=== PATIENT | male | born 1985 | race Caucasian/White ===

== ENCOUNTER 2017-02-18 22:52 | Inpatient (IN) | payer MEDICAID, OTHER ==
[~2017-02-18] VITALS: Ht 175.3 cm; Wt 98.5 kg
[~2017-02-18 22:52] MED LIST: CA C1TAB36 PO; CHLO100T24 PO; OMEG300C3 PO; VITA100C5 PO
[2017-02-18] MEDS ORDERED: OLAN2.5T3 PO (23:17)
[2017-02-18 23:21] LABS: BASOPHILS % (AUTO) 0.4 % (0.0-2.0); EOSINOPHILS % (AUTO) 1.4 % (1.0-6.0); MEAN CORPUSCULAR HGB CONC 33.4 G/dL (31.0-37.0); MEAN CORPUSCULAR VOLUME 87 fL (80-100); MONOCYTES # (AUTO) 0.7 K/uL (0.1-1.0); MONOCYTES % (AUTO) 7.4 % (2.0-9.0); NEUTROPHILS # (AUTO) 5.7 K/uL (1.8-7.7); NEUTROPHILS % (AUTO) 59.8 % (40.0-70.0); PLATELET COUNT (AUTO) 231 K/uL (150-450); RED BLOOD CELL COUNT(AUTO) 5.87 MIL/uL (4.50-5.90); RED CELL DISTRIBUTION WIDTH 13.4 % (11.5-14.5); WHITE BLOOD COUNT (AUTO) 9.5 K/uL (4.5-11.0)
[2017-02-18 23:29] LABS: ANION GAP 10 mmol/L (8-16); CALCIUM, TOTAL 8.8 mg/dL (8.8-10.5); CARBON DIOXIDE 25 mmol/L (22-29); CHLORIDE 104 mmol/L (98-107); CREATININE 1.01 mg/dL (0.60-1.30); GLOMERULAR FILTR. RATE CALC > 60 mL/min (>60); POTASSIUM 3.6 mmol/L (3.5-5.1); SODIUM SERUM 139 mmol/L (136-145); UREA NITROGEN, BLOOD 9 mg/dL (7-18)
[2017-02-18 23:34] LABS: ALANINE AMINOTRANSFERASE 24 U/L (12-78); ALBUMIN 4.1 g/dL (3.4-5.0); ASPARTATE AMINOTRANSFERASE 15 U/L (15-37); BILIRUBIN,TOTAL 0.4 mg/dL (0.1-1.0); TOTAL PROTEIN, SERUM 7.5 g/dL (6.4-8.2)
[2017-02-19] MEDS ORDERED: LORazepam 2 MG TABLET PO ONE
[2017-02-19] MEDS ORDERED: HALOPERIDOL 5 MG TABLET PO ONE
[2017-02-19 02:24] LABS: ADD UA MICROSCOPIC NO; APPEARANCE,URINE CLOUDY (CLEAR); GLUCOSE, URINE (UA) NEGATIVE (NEGATIVE); KETONES,URINE NEGATIVE (NEGATIVE); LEUKOCYTE ESTERASE ,URINE NEGATIVE (NEGATIVE); OCCULT BLOOD,URINE NEGATIVE (NEGATIVE); PH,URINE 5.5 (5.0-8.0); PROTEIN,URINE POS 1+ (NEGATIVE)
[2017-02-19 02:43] VITALS: BP 132/87
[2017-02-19 08:04] VITALS: BP 136/77
[2017-02-19] MEDS ORDERED: ONDANSETRON HCL 4 MG TABLET PO PRN (08:15)
[2017-02-19] MEDS ORDERED: LOPERAMIDE HCL 2 MG CAPSULE PO PRN (08:15)
[2017-02-19] MEDS ORDERED: IBUPROFEN 600 MG TABLET PO PRN (08:15)
[2017-02-19] MEDS ORDERED: CloNIDine HCL 0.1 MG TABLET PO PRN (08:15)
[2017-02-19] MEDS ORDERED: MAG HYDROX/AL HYDROX/SIMETH ES 30 ML SUSPENSION UDCUP PO PRN (08:15)
[2017-02-19] MEDS ORDERED: ALBUTEROL SULFATE HFA 90 MCG/PUFF 8 GM INHALER IH PRN (08:15)
[2017-02-19] MEDS ORDERED: ACETAMINOPHEN 325 MG TABLET PO PRN (08:15)
[2017-02-19] MEDS ORDERED: MAGNESIUM HYDROXIDE SUSPENSION 30 ML UDCUP PO PRN (08:15)
[2017-02-19] MEDS ORDERED: BACITRACIN 28.4 GM OINTMENT TP PRN (08:15)
[2017-02-19] MEDS ORDERED: PETROLATUM,WHITE 71 GM JELLY TP PRN (08:15)
[2017-02-19] MEDS ORDERED: BENZOCAINE/MENTHOL LOZENGE [8 LOZENGES/PACKET] MM PRN (08:30)
[2017-02-19 16:35] VITALS: BP 113/71
[2017-02-19] MEDS: LORazepam 2 MG TABLET PO PRN (17:00)
[2017-02-19] MEDS: PALIPERIDONE 3 MG ER TABLET PO SCH (20:18)
[2017-02-20 10:18] VITALS: BP 131/71
[2017-02-20] MEDS: PALIPERIDONE 3 MG ER TABLET PO SCH ×2 (11:53→20:56)
[2017-02-20] MEDS: LORazepam 2 MG TABLET PO PRN ×2 (12:03→17:15)
[2017-02-20] MEDS: HALOPERIDOL 5 MG TABLET PO PRN (12:03)
[2017-02-20] MEDS ORDERED: PALIPERIDONE PALMITATE 234 MG/1.5 ML SYRINGE IM ONE (13:45)
[2017-02-20 16:27] VITALS: BP 133/79
[2017-02-21 09:35] VITALS: BP 121/63
[2017-02-21] MEDS: PALIPERIDONE 3 MG ER TABLET PO SCH ×2 (10:26→20:23)
[2017-02-21] MEDS: LORazepam 2 MG TABLET PO PRN (16:11)
[2017-02-21 16:55] VITALS: BP 129/79
[2017-02-22 09:02] VITALS: BP 129/99
[2017-02-22] MEDS: HALOPERIDOL 5 MG TABLET PO PRN (10:00)
[2017-02-22] MEDS: LORazepam 2 MG TABLET PO PRN ×2 (10:00→17:50)
[2017-02-22] MEDS: PALIPERIDONE 3 MG ER TABLET PO SCH ×2 (10:00→19:56)
[2017-02-22 18:32] VITALS: BP 124/75
[2017-02-22] MEDS: DOCUSATE SODIUM 250 MG CAPSULE PO SCH (20:21)
[2017-02-23 08:54] VITALS: BP 102/60
[2017-02-23] MEDS: DOCUSATE SODIUM 250 MG CAPSULE PO SCH ×2 (09:44→16:29)
[2017-02-23] MEDS: PALIPERIDONE 3 MG ER TABLET PO SCH ×2 (09:44→20:29)
[2017-02-23 16:29] VITALS: BP 123/87
[2017-02-24] MEDS ORDERED: PALIPERIDONE PALMITATE 156 MG/ML SYRINGE IM ONE (09:00)
[2017-02-24 09:57] VITALS: BP 114/60
[2017-02-24] MEDS: PALIPERIDONE 3 MG ER TABLET PO SCH ×2 (10:45→20:57)
[2017-02-24] MEDS: DOCUSATE SODIUM 250 MG CAPSULE PO SCH ×2 (10:45→16:25)
[2017-02-24 16:45] VITALS: BP 127/91
[2017-02-24] MEDS: LORazepam 2 MG TABLET PO PRN (17:10)
[2017-02-24] MEDS: HALOPERIDOL 5 MG TABLET PO PRN (17:10)
[2017-02-24 20:30] VITALS: BP 122/80
[2017-02-25 08:46] VITALS: BP 116/72
[2017-02-25] MEDS: DOCUSATE SODIUM 250 MG CAPSULE PO SCH ×2 (09:40→16:03)
[2017-02-25] MEDS: PALIPERIDONE 3 MG ER TABLET PO SCH ×2 (09:41→20:05)
[2017-02-25] MEDS: LORazepam 2 MG TABLET PO PRN ×2 (12:20→20:07)
[2017-02-25 16:51] VITALS: BP 118/78
[2017-02-26 08:30] VITALS: BP 135/78
[2017-02-26] MEDS: PALIPERIDONE 3 MG ER TABLET PO SCH ×2 (08:47→20:43)
[2017-02-26] MEDS: DOCUSATE SODIUM 250 MG CAPSULE PO SCH ×2 (08:47→15:51)
[2017-02-26 17:03] VITALS: BP 117/77
[2017-02-26] MEDS ORDERED: DICLOFENAC SODIUM 1% 100 GM GEL [2GM] TP PRN (18:15)
[2017-02-26] MEDS: LORazepam 2 MG TABLET PO PRN (19:39)
[2017-02-26] MEDS: HALOPERIDOL 5 MG TABLET PO PRN (19:39)
[2017-02-26] MEDS: ZOLPIDEM TARTRATE 10 MG TABLET PO PRN (21:57)
[2017-02-27 08:00] VITALS: BP 137/82
[2017-02-27] MEDS: DOCUSATE SODIUM 250 MG CAPSULE PO SCH ×2 (09:40→16:27)
[2017-02-27] MEDS: PALIPERIDONE 3 MG ER TABLET PO SCH ×2 (09:40→21:06)
[2017-02-27] MEDS: BuPROPion HCL XL 150 MG ER TABLET PO SCH (11:36)
[2017-02-27 16:08] VITALS: BP 116/68
[2017-02-27] MEDS: LORazepam 2 MG TABLET PO PRN ×2 (16:38→20:46)
[2017-02-27] MEDS: HALOPERIDOL 5 MG TABLET PO PRN ×2 (16:39→20:46)
[2017-02-28 08:06] VITALS: BP 118/75
[2017-02-28] MEDS: PALIPERIDONE 3 MG ER TABLET PO SCH ×2 (08:43→20:29)
[2017-02-28] MEDS: BuPROPion HCL XL 150 MG ER TABLET PO SCH (08:43)
[2017-02-28] MEDS: DOCUSATE SODIUM 250 MG CAPSULE PO SCH ×2 (08:43→16:51)
[2017-02-28 16:00] VITALS: BP 112/70
[2017-02-28] MEDS: LORazepam 2 MG TABLET PO PRN (16:52)
[2017-02-28] MEDS: ZOLPIDEM TARTRATE 10 MG TABLET PO PRN (20:29)
[2017-03-01] MEDS: LORazepam 2 MG TABLET PO PRN (02:03)
[2017-03-01 02:48] VITALS: BP 128/82
[2017-03-01 08:06] VITALS: BP 152/89
[2017-03-01] MEDS: DOCUSATE SODIUM 250 MG CAPSULE PO SCH (08:44)
[2017-03-01] MEDS: BuPROPion HCL XL 150 MG ER TABLET PO SCH (08:44)
[2017-03-01] MEDS: PALIPERIDONE 3 MG ER TABLET PO SCH (08:45)
[2017-03-01] MEDS ORDERED: PALI3 PO (08:56)
[2017-03-01] MEDS ORDERED: BUPR-93 PO (08:59)
== END 2017-03-01 14:05 | disposition home or self-care (01) | DRG 750 ==
LOC: EMS 22:53 → 3EI 02-19 01:15
DX: F20.0 Paranoid schizophrenia (principal); R45.851 Suicidal ideations; I10 Essential (primary) hypertension; M54.5 Low back pain; K59.00 Constipation, unspecified; E66.9 Obesity, unspecified; F17.210 Nicotine dependence, cigarettes, uncomplicated; Z88.8 Allergy status to other drugs, medicaments and biological substances; Z79.899 Other long term (current) drug therapy; Z71.6 Tobacco abuse counseling; Z68.32 Body mass index [BMI] 32.0-32.9, adult
CPT/HCPCS: 99285; 99406; G0480; J3535

== ENCOUNTER 2017-03-09 01:12 | Emergency (ER) | payer MEDICAID, OTHER ==
[~2017-03-09] VITALS: Ht 175.3 cm; Wt 100.9 kg
[~2017-03-09 01:12] MED LIST changes: +BUPR-93 PO; -CA C1TAB36 PO; -CHLO100T24 PO; -OMEG300C3 PO; +PALI3 PO; -VITA100C5 PO
[2017-03-09 02:05] VITALS: BP 136/87
== END 2017-03-09 02:25 | disposition home or self-care (01) ==
LOC: EMS 01:13
DX: F41.9 Anxiety disorder, unspecified (principal); F20.9 Schizophrenia, unspecified; I10 Essential (primary) hypertension; F17.210 Nicotine dependence, cigarettes, uncomplicated; Z91.018 Allergy to other foods; Z88.8 Allergy status to other drugs, medicaments and biological substances
CPT/HCPCS: 99283

== ENCOUNTER 2020-07-23 19:18 | Inpatient (IN) | payer MEDICAID, OTHER ==
[~2020-07-23] VITALS: Ht 175.3 cm; Wt 86.2 kg
[~2020-07-23 19:18] MED LIST changes: -BUPR-93 PO; +DIVA-80 PO; +NALT50TA6 PO; +OLAN10TA22 PO; +OLAN10TA6 PO; +OMEP20 PO; -PALI3 PO
[2020-07-23] MEDS ORDERED: PALI1.5T7 PO (19:20)
[2020-07-23 21:44] LABS: BASOPHILS % (AUTO) 0.6 % (0.0-2.0); HEMATOCRIT 44.1 % (41-53); HEMOGLOBIN 14.8 g/dL (13.5-17.5); LYMPHOCYTES # (AUTO) 3.1 K/uL (1.0-4.8); LYMPHOCYTES % (AUTO) 39.2 % (22.0-44.0); MEAN CORPUSCULAR HEMOGLOBIN 29.8 pg (26.0-34.0); MEAN CORPUSCULAR HGB CONC 33.6 G/dL (31.0-37.0); MEAN CORPUSCULAR VOLUME 89 fL (80-100); MONOCYTES # (AUTO) 0.7 K/uL (0.1-1.0); MONOCYTES % (AUTO) 8.6 % (2.0-9.0); NEUTROPHILS % (AUTO) 49.6 % (40.0-70.0); PLATELET COUNT (AUTO) 200 K/uL (150-450); RED BLOOD CELL COUNT(AUTO) 4.96 MIL/uL (4.50-5.90); RED CELL DISTRIBUTION WIDTH 13.8 % (11.5-14.5)
[2020-07-23 21:56] LABS: ANION GAP 5 mmol/L (8-16); CALCIUM, TOTAL 8.8 mg/dL (8.8-10.5); CARBON DIOXIDE 29 mmol/L (22-29); CHLORIDE 101 mmol/L (98-107); CREATININE 1.04 mg/dL (0.60-1.30); GLOMERULAR FILTR. RATE CALC > 60 mL/min (>60); GLUCOSE,RANDOM 125 mg/dL (70-110); POTASSIUM 3.6 mmol/L (3.5-5.1); SODIUM SERUM 135 mmol/L (136-145); UREA NITROGEN, BLOOD 9 mg/dL (7-18)
[2020-07-23 22:02] LABS: ALANINE AMINOTRANSFERASE 21 U/L (12-78); ALBUMIN 3.7 g/dL (3.4-5.0); ALKALINE PHOSPHATASE 47 U/L (46-116); ASPARTATE AMINOTRANSFERASE 23 U/L (15-37); BILIRUBIN,TOTAL 0.7 mg/dL (0.1-1.0); TOTAL PROTEIN, SERUM 6.6 g/dL (6.4-8.2); VALPROIC ACID 64 mcg/mL (50-100)
[2020-07-23 22:41] LABS: AMPHET/METH SCREEN,URINE POSITIVE (NEGATIVE); BARBITURATE SCREEN, URINE NEGATIVE (NEGATIVE); BENZODIAZEPINES SCREEN,URINE NEGATIVE (NEGATIVE); CANNABINOID SCREEN,URINE NEGATIVE (NEGATIVE); COCAINE SCREEN,URINE POSITIVE (NEGATIVE); METHADONE SCREEN, URINE NEGATIVE (NEGATIVE); OPIATE SCREEN,URINE NEGATIVE (NEGATIVE)
[2020-07-23 22:43] LABS: PHENCYCLIDINE SCREEN,URINE NEGATIVE (NEGATIVE)
[2020-07-23] MEDS ORDERED: HALOPERIDOL 5 MG TABLET PO ONE (22:45)
[2020-07-23] MEDS ORDERED: LORazepam 2 MG TABLET PO ONE (22:45)
[2020-07-23] MEDS ORDERED: HALOPERIDOL 5 MG TABLET PO PRN (23:15)
[2020-07-23] MEDS ORDERED: ZOLPIDEM TARTRATE 10 MG TABLET PO PRN (23:15)
[2020-07-24 01:00] VITALS: BP 131/64
[2020-07-24] MEDS ORDERED: LOPERAMIDE HCL 2 MG CAPSULE PO PRN (07:45)
[2020-07-24] MEDS ORDERED: GuaiFENesin/D-METHORPHAN [SUGAR-FREE] 200-20MG/10 ML SYRUP UDCUP PO PRN (07:45)
[2020-07-24] MEDS ORDERED: NICOTINE 14 MG/24 HOUR PATCH TD PRN (07:45)
[2020-07-24] MEDS ORDERED: ACETAMINOPHEN 325 MG TABLET PO PRN (07:45)
[2020-07-24] MEDS ORDERED: MAGNESIUM HYDROXIDE SUSPENSION 30 ML UDCUP PO PRN (07:45)
[2020-07-24] MEDS ORDERED: MAG HYDROX/AL HYDROX/SIMETH ES 30 ML SUSPENSION UDCUP PO PRN (07:45)
[2020-07-24] MEDS ORDERED: ONDANSETRON HCL 4 MG TABLET PO PRN (07:45)
[2020-07-24] MEDS ORDERED: ALBUTEROL SULFATE HFA 90 MCG/PUFF 8 GM INHALER IH PRN (07:45)
[2020-07-24] MEDS ORDERED: CloNIDine HCL 0.1 MG TABLET PO PRN (07:45)
[2020-07-24] MEDS ORDERED: IBUPROFEN 400 MG TABLET PO PRN (07:45)
[2020-07-24] MEDS ORDERED: PETROLATUM,WHITE 28 GM JELLY TP PRN (07:45)
[2020-07-24] MEDS ORDERED: DOCUSATE SODIUM 100 MG CAPSULE PO PRN (07:45)
[2020-07-24] MEDS: OMEPRAZOLE 20 MG CAPSULE PO SCH (09:52)
[2020-07-24 10:32] VITALS: BP 106/65
[2020-07-24] MEDS: DIVALPROEX SODIUM 500 MG ER TABLET PO SCH (20:31)
[2020-07-24] MEDS: OLANZapine 10 MG TABLET PO SCH (20:31)
[2020-07-25] MEDS: DIVALPROEX SODIUM 500 MG ER TABLET PO SCH ×2 (08:20→20:14)
[2020-07-25] MEDS: OLANZapine 10 MG TABLET PO SCH ×2 (08:20→20:14)
[2020-07-25] MEDS: OMEPRAZOLE 20 MG CAPSULE PO SCH (08:20)
[2020-07-25 16:31] VITALS: BP 111/59
[2020-07-25] MEDS: LORazepam 2 MG TABLET PO PRN (16:52)
[2020-07-26 06:39] VITALS: BP 108/54
[2020-07-26] MEDS: OLANZapine 10 MG TABLET PO SCH ×2 (08:36→20:28)
[2020-07-26] MEDS: OMEPRAZOLE 20 MG CAPSULE PO SCH (08:36)
[2020-07-26] MEDS: DIVALPROEX SODIUM 500 MG ER TABLET PO SCH ×2 (08:37→20:28)
[2020-07-26 16:19] VITALS: BP 135/85
[2020-07-26] MEDS: LORazepam 2 MG TABLET PO PRN (16:49)
[2020-07-27 05:43] VITALS: BP 106/60
[2020-07-27] MEDS: DIVALPROEX SODIUM 500 MG ER TABLET PO SCH ×2 (08:59→20:35)
[2020-07-27] MEDS: OLANZapine 10 MG TABLET PO SCH ×2 (08:59→20:35)
[2020-07-27] MEDS: OMEPRAZOLE 20 MG CAPSULE PO SCH (09:00)
[2020-07-27] MEDS: LORazepam 2 MG TABLET PO PRN (15:30)
[2020-07-27 16:40] VITALS: BP 118/73
[2020-07-28] MEDS: DIVALPROEX SODIUM 500 MG ER TABLET PO SCH ×2 (09:24→20:38)
[2020-07-28] MEDS: OLANZapine 10 MG TABLET PO SCH ×2 (09:25→20:37)
[2020-07-28] MEDS: OMEPRAZOLE 20 MG CAPSULE PO SCH (09:25)
[2020-07-28 16:10] VITALS: BP 118/60
[2020-07-28] MEDS: LORazepam 2 MG TABLET PO PRN (19:35)
[2020-07-29 00:38] VITALS: BP_SYST 113; BP_SYST 120; BP_DIAS 77; BP_DIAS 80
[2020-07-29] MEDS: DIVALPROEX SODIUM 500 MG ER TABLET PO SCH (08:58)
[2020-07-29] MEDS: OLANZapine 10 MG TABLET PO SCH (08:58)
[2020-07-29] MEDS: OMEPRAZOLE 20 MG CAPSULE PO SCH (08:59)
[2020-07-29] MEDS ORDERED: DIVA-80 PO ×2 (14:05)
[2020-07-29] MEDS ORDERED: OLAN10TA3 PO (14:06)
== END 2020-07-29 14:57 | disposition home or self-care (01) | DRG 750 ==
LOC: EMS 19:19 → B2S 23:07
PROVIDERS: ADMIT Psychiatry & Neurology Child & Adolescent Psychiatry; ATTEND Psychiatry & Neurology Child & Adolescent Psychiatry
DX: F25.1 Schizoaffective disorder, depressive type (principal); E87.1 Hypo-osmolality and hyponatremia; F10.10 Alcohol abuse, uncomplicated; F14.10 Cocaine abuse, uncomplicated; F15.10 Other stimulant abuse, uncomplicated; F12.90 Cannabis use, unspecified, uncomplicated; F41.9 Anxiety disorder, unspecified; I10 Essential (primary) hypertension; F17.210 Nicotine dependence, cigarettes, uncomplicated; K21.9 Gastro-esophageal reflux disease without esophagitis; R45.851 Suicidal ideations; Z59.0 Homelessness; Z79.899 Other long term (current) drug therapy; Z88.8 Allergy status to other drugs, medicaments and biological substances; Z71.51 Drug abuse counseling and surveillance of drug abuser; Z71.6 Tobacco abuse counseling
CPT/HCPCS: G0480

== ENCOUNTER 2020-08-14 23:26 | Inpatient (IN) | payer MEDICAID, OTHER ==
[~2020-08-14] VITALS: Ht 175.3 cm; Wt 92.4 kg
[~2020-08-14 23:26] MED LIST changes: -NALT50TA6 PO; -OLAN10TA22 PO; +OLAN10TA3 PO; -OLAN10TA6 PO
[2020-08-15 02:05] LABS: BASOPHILS % (AUTO) 0.7 % (0.0-2.0); EOSINOPHILS % (AUTO) 1.4 % (1.0-6.0); HEMATOCRIT 45.5 % (41-53); HEMOGLOBIN 15.9 g/dL (13.5-17.5); LYMPHOCYTES # (AUTO) 3.6 K/uL (1.0-4.8); LYMPHOCYTES % (AUTO) 39.7 % (22.0-44.0); MEAN CORPUSCULAR HEMOGLOBIN 30.9 pg (26.0-34.0); MEAN CORPUSCULAR VOLUME 88 fL (80-100); MONOCYTES # (AUTO) 0.8 K/uL (0.1-1.0); MONOCYTES % (AUTO) 9.1 % (2.0-9.0); NEUTROPHILS # (AUTO) 4.4 K/uL (1.8-7.7); NEUTROPHILS % (AUTO) 49.1 % (40.0-70.0); PLATELET COUNT (AUTO) 214 K/uL (150-450); RED BLOOD CELL COUNT(AUTO) 5.15 MIL/uL (4.50-5.90); RED CELL DISTRIBUTION WIDTH 13.5 % (11.5-14.5)
[2020-08-15 02:15] LABS: ANION GAP 9 mmol/L (8-16); CALCIUM, TOTAL 9.1 mg/dL (8.8-10.5); CARBON DIOXIDE 29 mmol/L (22-29); CHLORIDE 101 mmol/L (98-107); GLOMERULAR FILTR. RATE CALC > 60 mL/min (>60); GLUCOSE,RANDOM 108 mg/dL (70-110); POTASSIUM 3.8 mmol/L (3.5-5.1); SODIUM SERUM 139 mmol/L (136-145); UREA NITROGEN, BLOOD 10 mg/dL (7-18)
[2020-08-15 02:24] LABS: ALANINE AMINOTRANSFERASE 16 U/L (12-78); ALBUMIN 3.9 g/dL (3.4-5.0); ALKALINE PHOSPHATASE 40 U/L (46-116); ASPARTATE AMINOTRANSFERASE 12 U/L (15-37); BILIRUBIN,TOTAL 0.2 mg/dL (0.1-1.0); TOTAL PROTEIN, SERUM 6.7 g/dL (6.4-8.2); VALPROIC ACID 64 mcg/mL (50-100)
[2020-08-15 03:17] LABS: AMPHET/METH SCREEN,URINE NEGATIVE (NEGATIVE); BARBITURATE SCREEN, URINE NEGATIVE (NEGATIVE); BENZODIAZEPINES SCREEN,URINE NEGATIVE (NEGATIVE); CANNABINOID SCREEN,URINE NEGATIVE (NEGATIVE); COCAINE SCREEN,URINE NEGATIVE (NEGATIVE); METHADONE SCREEN, URINE NEGATIVE (NEGATIVE); OPIATE SCREEN,URINE NEGATIVE (NEGATIVE)
[2020-08-15 03:19] LABS: PHENCYCLIDINE SCREEN,URINE NEGATIVE (NEGATIVE)
[2020-08-15 07:45] LABS: COVID AG,FIA SOURCE NASOPHARYNGEAL
[2020-08-15] MEDS ORDERED: MAG HYDROX/AL HYDROX/SIMETH ES 30 ML SUSPENSION UDCUP PO PRN (08:30)
[2020-08-15] MEDS ORDERED: ALBUTEROL SULFATE HFA 90 MCG/PUFF 8 GM INHALER IH PRN (08:30)
[2020-08-15] MEDS ORDERED: ONDANSETRON HCL 4 MG TABLET PO PRN (08:30)
[2020-08-15] MEDS ORDERED: MAGNESIUM HYDROXIDE SUSPENSION 30 ML UDCUP PO PRN (08:30)
[2020-08-15] MEDS ORDERED: ACETAMINOPHEN 325 MG TABLET PO PRN (08:30)
[2020-08-15] MEDS ORDERED: GuaiFENesin/D-METHORPHAN [SUGAR-FREE] 200-20MG/10 ML SYRUP UDCUP PO PRN (08:30)
[2020-08-15] MEDS ORDERED: PETROLATUM,WHITE 28 GM JELLY TP PRN (08:30)
[2020-08-15] MEDS ORDERED: NICOTINE 14 MG/24 HOUR PATCH TD PRN (08:30)
[2020-08-15] MEDS ORDERED: LOPERAMIDE HCL 2 MG CAPSULE PO PRN (08:30)
[2020-08-15] MEDS ORDERED: DOCUSATE SODIUM 100 MG CAPSULE PO PRN (08:30)
[2020-08-15] MEDS ORDERED: CloNIDine HCL 0.1 MG TABLET PO PRN (08:30)
[2020-08-15 08:39] LABS: APPEARANCE,URINE CLEAR (CLEAR); BILIRUBIN,URINE NEGATIVE (NEGATIVE); GLUCOSE, URINE (UA) NEGATIVE (NEGATIVE); KETONES,URINE NEGATIVE (NEGATIVE); LEUKOCYTE ESTERASE ,URINE NEGATIVE (NEGATIVE); NITRATE,URINE NEGATIVE (NEGATIVE); OCCULT BLOOD,URINE NEGATIVE (NEGATIVE); PROTEIN,URINE NEGATIVE (NEGATIVE); UROBILINOGEN,URINE 0.2 mg/dL (<=1.0)
[2020-08-15] MEDS: OMEPRAZOLE 20 MG CAPSULE PO SCH (09:55)
[2020-08-15 10:18] VITALS: BP 149/75
[2020-08-15 16:25] VITALS: BP 134/81
[2020-08-15] MEDS: HALOPERIDOL 5 MG TABLET PO PRN (21:10)
[2020-08-15] MEDS: LORazepam 2 MG TABLET PO PRN (21:11)
[2020-08-16] MEDS: OMEPRAZOLE 20 MG CAPSULE PO SCH (08:04)
[2020-08-16 16:06] VITALS: BP 127/86
[2020-08-16] MEDS: IBUPROFEN 400 MG TABLET PO PRN (16:10)
[2020-08-16] MEDS: DIVALPROEX SODIUM 500 MG ER TABLET PO SCH (20:10)
[2020-08-16] MEDS: OLANZapine 10 MG TABLET PO SCH (20:10)
[2020-08-16] MEDS: ZOLPIDEM TARTRATE 10 MG TABLET PO PRN (20:10)
[2020-08-17] MEDS: HALOPERIDOL 5 MG TABLET PO PRN ×3 (00:02→17:11)
[2020-08-17] MEDS: LORazepam 2 MG TABLET PO PRN ×3 (00:02→17:11)
[2020-08-17] MEDS: OLANZapine 10 MG TABLET PO SCH ×2 (07:42→20:26)
[2020-08-17] MEDS: OMEPRAZOLE 20 MG CAPSULE PO SCH (07:42)
[2020-08-17] MEDS: DIVALPROEX SODIUM 500 MG ER TABLET PO SCH ×2 (07:42→20:26)
[2020-08-17 08:00] VITALS: BP 110/70
[2020-08-17 16:05] VITALS: BP 132/90
[2020-08-18 08:00] VITALS: BP 114/69
[2020-08-18] MEDS: OLANZapine 10 MG TABLET PO SCH ×2 (09:37→20:10)
[2020-08-18] MEDS: OMEPRAZOLE 20 MG CAPSULE PO SCH (09:38)
[2020-08-18] MEDS: DIVALPROEX SODIUM 500 MG ER TABLET PO SCH ×2 (09:38→20:09)
[2020-08-18] MEDS: LORazepam 2 MG TABLET PO PRN (10:51)
[2020-08-18] MEDS: HALOPERIDOL 5 MG TABLET PO PRN (10:51)
[2020-08-19] MEDS: OLANZapine 10 MG TABLET PO SCH (07:55)
[2020-08-19] MEDS: OMEPRAZOLE 20 MG CAPSULE PO SCH ×2 (07:55→08:03)
[2020-08-19] MEDS: DIVALPROEX SODIUM 500 MG ER TABLET PO SCH ×3 (07:55→20:07)
[2020-08-19 08:00] VITALS: BP 95/66
[2020-08-19] MEDS: HALOPERIDOL 5 MG TABLET PO PRN ×2 (08:02→15:52)
[2020-08-19] MEDS: LORazepam 2 MG TABLET PO PRN ×2 (08:02→15:52)
[2020-08-19 16:21] VITALS: BP 128/72
[2020-08-19] MEDS: OLANZapine 7.5 MG TABLET PO SCH (20:08)
[2020-08-19] MEDS: ZOLPIDEM TARTRATE 10 MG TABLET PO PRN (21:41)
[2020-08-20] MEDS: DIVALPROEX SODIUM 500 MG ER TABLET PO SCH (08:45)
[2020-08-20] MEDS: OLANZapine 7.5 MG TABLET PO SCH (08:45)
[2020-08-20] MEDS: OMEPRAZOLE 20 MG CAPSULE PO SCH (08:45)
[2020-08-20] MEDS: IBUPROFEN 400 MG TABLET PO PRN (10:16)
[2020-08-20 16:08] VITALS: BP 127/90
== END 2020-08-20 16:45 | disposition home or self-care (01) | DRG 750 ==
LOC: EMS 23:26 → 3EC 08-15 04:49
PROVIDERS: ADMIT Psychiatry & Neurology Psychiatry; ATTEND Psychiatry & Neurology Psychiatry
DX: F20.9 Schizophrenia, unspecified (principal); F15.10 Other stimulant abuse, uncomplicated; Z88.8 Allergy status to other drugs, medicaments and biological substances; I10 Essential (primary) hypertension; K59.00 Constipation, unspecified; Z20.828 Contact with and (suspected) exposure to other viral communicable diseases; Z87.891 Personal history of nicotine dependence
CPT/HCPCS: 87081; 87426; G0480

== ENCOUNTER 2020-08-26 16:21 | Inpatient (IN) | payer MEDICAID, OTHER ==
[~2020-08-26] VITALS: Ht 175.3 cm; Wt 94.2 kg
[2020-08-26 17:13] LABS: BASOPHILS % (AUTO) 0.5 % (0.0-2.0); EOSINOPHILS % (AUTO) 1.5 % (1.0-6.0); HEMATOCRIT 42.3 % (41-53); LYMPHOCYTES % (AUTO) 23.2 % (22.0-44.0); MEAN CORPUSCULAR HEMOGLOBIN 29.8 pg (26.0-34.0); MEAN CORPUSCULAR HGB CONC 33.2 G/dL (31.0-37.0); MEAN CORPUSCULAR VOLUME 90 fL (80-100); MONOCYTES # (AUTO) 0.8 K/uL (0.1-1.0); NEUTROPHILS # (AUTO) 5.8 K/uL (1.8-7.7); NEUTROPHILS % (AUTO) 65.8 % (40.0-70.0); PLATELET COUNT (AUTO) 212 K/uL (150-450); RED BLOOD CELL COUNT(AUTO) 4.72 MIL/uL (4.50-5.90); RED CELL DISTRIBUTION WIDTH 13.3 % (11.5-14.5)
[2020-08-26 17:31] LABS: ANION GAP 4 mmol/L (8-16); CALCIUM, TOTAL 8.6 mg/dL (8.8-10.5); CARBON DIOXIDE 30 mmol/L (22-29); CHLORIDE 108 mmol/L (98-107); CREATININE 0.75 mg/dL (0.60-1.30); GLOMERULAR FILTR. RATE CALC > 60 mL/min (>60); GLUCOSE,RANDOM 93 mg/dL (70-110); POTASSIUM 3.6 mmol/L (3.5-5.1); SODIUM SERUM 142 mmol/L (136-145); UREA NITROGEN, BLOOD 6 mg/dL (7-18)
[2020-08-26 17:37] LABS: ALANINE AMINOTRANSFERASE 27 U/L (12-78); ALBUMIN 3.4 g/dL (3.4-5.0); ALKALINE PHOSPHATASE 31 U/L (46-116); ASPARTATE AMINOTRANSFERASE 18 U/L (15-37); BILIRUBIN,TOTAL 0.2 mg/dL (0.1-1.0); TOTAL PROTEIN, SERUM 6.6 g/dL (6.4-8.2)
[2020-08-26 17:57] LABS: COVID AG,FIA SOURCE NASOPHARYNGEAL
[2020-08-26 18:10] LABS: AMPHET/METH SCREEN,URINE NEGATIVE (NEGATIVE); BARBITURATE SCREEN, URINE NEGATIVE (NEGATIVE); BENZODIAZEPINES SCREEN,URINE NEGATIVE (NEGATIVE); CANNABINOID SCREEN,URINE NEGATIVE (NEGATIVE); COCAINE SCREEN,URINE NEGATIVE (NEGATIVE); METHADONE SCREEN, URINE NEGATIVE (NEGATIVE); OPIATE SCREEN,URINE NEGATIVE (NEGATIVE)
[2020-08-26 18:14] LABS: PHENCYCLIDINE SCREEN,URINE NEGATIVE (NEGATIVE)
[2020-08-26] MEDS ORDERED: LORazepam 2 MG TABLET PO ONE (18:45)
[2020-08-26] MEDS ORDERED: OLANZapine 5 MG TABLET PO ONE (18:45)
[2020-08-26] MEDS ORDERED: INFLUENZA VIRUS VACCINE QVS 2020-21 (6MO+)/PF 60 MCG/0.5 ML SYRINGE IM ONE (22:00)
[2020-08-26] MEDS ORDERED: -PHARMACY VACCINE NOTE- MISC ONE (22:00)
[2020-08-26 22:09] VITALS: BP 152/76
[2020-08-26] MEDS: AmLODIPine BESYLATE 5 MG TABLET PO SCH (22:22)
[2020-08-27 10:15] VITALS: BP 130/83
[2020-08-27] MEDS: AmLODIPine BESYLATE 5 MG TABLET PO SCH (10:16)
[2020-08-27] MEDS: OMEPRAZOLE 20 MG CAPSULE PO SCH (10:16)
[2020-08-27] MEDS: LORazepam 2 MG TABLET PO PRN (17:58)
[2020-08-27] MEDS: OLANZapine 5 MG RAPDIS TABLET PO PRN (17:58)
[2020-08-27] MEDS: OLANZapine 7.5 MG TABLET PO SCH (20:32)
[2020-08-27] MEDS: DIVALPROEX SODIUM 500 MG ER TABLET PO SCH (20:32)
[2020-08-28 01:21] VITALS: BP 139/76
[2020-08-28 08:31] VITALS: BP 122/71
[2020-08-28] MEDS: DIVALPROEX SODIUM 500 MG ER TABLET PO SCH ×2 (09:45→21:00)
[2020-08-28] MEDS: OMEPRAZOLE 20 MG CAPSULE PO SCH (09:46)
[2020-08-28] MEDS: AmLODIPine BESYLATE 5 MG TABLET PO SCH (09:46)
[2020-08-28] MEDS: OLANZapine 7.5 MG TABLET PO SCH ×2 (09:46→21:00)
[2020-08-28 17:46] VITALS: BP 112/79
[2020-08-28] MEDS: OLANZapine 5 MG RAPDIS TABLET PO PRN (18:09)
[2020-08-28] MEDS: LORazepam 2 MG TABLET PO PRN (18:09)
[2020-08-28] MEDS: ZOLPIDEM TARTRATE 10 MG TABLET PO PRN (21:00)
[2020-08-29] MEDS: OLANZapine 7.5 MG TABLET PO SCH ×2 (08:30→20:36)
[2020-08-29] MEDS: OMEPRAZOLE 20 MG CAPSULE PO SCH (08:30)
[2020-08-29] MEDS: AmLODIPine BESYLATE 5 MG TABLET PO SCH (08:30)
[2020-08-29] MEDS: DIVALPROEX SODIUM 500 MG ER TABLET PO SCH ×2 (08:31→20:36)
[2020-08-29 08:36] VITALS: BP 109/62
[2020-08-29] MEDS ORDERED: LORazepam 2 MG/ML VIAL ONE (10:58)
[2020-08-29] MEDS ORDERED: HALOPERIDOL LACTATE 5 MG/ML VIAL ONE (10:58)
[2020-08-29] MEDS ORDERED: DiphenhydrAMINE HCL 50 MG/ML VIAL ONE (10:58)
[2020-08-29] MEDS ORDERED: DiphenhydrAMINE HCL 50 MG/ML VIAL IM ONE (11:00)
[2020-08-29] MEDS ORDERED: LORazepam 2 MG/ML VIAL IM ONE (11:00)
[2020-08-29] MEDS ORDERED: HALOPERIDOL LACTATE 5 MG/ML VIAL IM ONE (11:00)
[2020-08-29] MEDS: OLANZapine 5 MG RAPDIS TABLET PO PRN (15:47)
[2020-08-29] MEDS: LORazepam 2 MG TABLET PO PRN (15:48)
[2020-08-29 16:04] VITALS: BP 131/65
[2020-08-30 05:47] VITALS: BP 118/68
[2020-08-30] MEDS: OMEPRAZOLE 20 MG CAPSULE PO SCH (08:38)
[2020-08-30] MEDS: DIVALPROEX SODIUM 500 MG ER TABLET PO SCH ×2 (08:38→20:46)
[2020-08-30] MEDS: AmLODIPine BESYLATE 5 MG TABLET PO SCH (08:38)
[2020-08-30] MEDS: OLANZapine 7.5 MG TABLET PO SCH ×2 (08:39→20:46)
[2020-08-30 11:09] VITALS: BP 126/75
[2020-08-30] MEDS: LORazepam 2 MG TABLET PO PRN ×2 (11:09→15:53)
[2020-08-30] MEDS: IBUPROFEN 400 MG TABLET PO PRN (11:09)
[2020-08-30 11:37] VITALS: BP 122/72
[2020-08-30] MEDS: OLANZapine 5 MG RAPDIS TABLET PO PRN (15:53)
[2020-08-30 16:06] VITALS: BP 112/61
[2020-08-31 03:17] VITALS: BP 124/82
[2020-08-31] MEDS: OLANZapine 7.5 MG TABLET PO SCH ×2 (08:40→21:27)
[2020-08-31] MEDS: AmLODIPine BESYLATE 5 MG TABLET PO SCH (08:40)
[2020-08-31] MEDS: LORazepam 2 MG TABLET PO PRN (08:40)
[2020-08-31] MEDS: OMEPRAZOLE 20 MG CAPSULE PO SCH (08:40)
[2020-08-31] MEDS: DIVALPROEX SODIUM 500 MG ER TABLET PO SCH ×2 (08:40→21:27)
[2020-08-31 10:29] VITALS: BP 124/86
[2020-09-01] MEDS: LORazepam 2 MG TABLET PO PRN (08:52)
[2020-09-01] MEDS: AmLODIPine BESYLATE 5 MG TABLET PO SCH (08:52)
[2020-09-01] MEDS: DIVALPROEX SODIUM 500 MG ER TABLET PO SCH ×2 (08:52→20:48)
[2020-09-01] MEDS: OLANZapine 7.5 MG TABLET PO SCH ×2 (08:52→20:48)
[2020-09-01] MEDS: OMEPRAZOLE 20 MG CAPSULE PO SCH (08:52)
[2020-09-01 16:17] VITALS: BP 119/72
[2020-09-01] MEDS: IBUPROFEN 400 MG TABLET PO PRN (16:40)
[2020-09-02 00:37] VITALS: BP 114/75
[2020-09-02] MEDS: AmLODIPine BESYLATE 5 MG TABLET PO SCH (09:26)
[2020-09-02] MEDS: OLANZapine 7.5 MG TABLET PO SCH ×2 (09:26→20:17)
[2020-09-02] MEDS: OMEPRAZOLE 20 MG CAPSULE PO SCH (09:26)
[2020-09-02] MEDS: DIVALPROEX SODIUM 500 MG ER TABLET PO SCH ×2 (09:26→20:17)
[2020-09-02 16:04] VITALS: BP 131/73
[2020-09-02] MEDS: OLANZapine 5 MG RAPDIS TABLET PO PRN (16:36)
[2020-09-02] MEDS: LORazepam 2 MG TABLET PO PRN (16:36)
[2020-09-02] MEDS: ZOLPIDEM TARTRATE 10 MG TABLET PO PRN (20:17)
[2020-09-03] MEDS: AmLODIPine BESYLATE 5 MG TABLET PO SCH (08:27)
[2020-09-03] MEDS: OLANZapine 7.5 MG TABLET PO SCH ×2 (08:27→20:29)
[2020-09-03] MEDS: DIVALPROEX SODIUM 500 MG ER TABLET PO SCH ×2 (08:27→20:29)
[2020-09-03] MEDS: OMEPRAZOLE 20 MG CAPSULE PO SCH (08:27)
[2020-09-03] MEDS: LORazepam 2 MG TABLET PO PRN ×2 (12:51→16:55)
[2020-09-03] MEDS: OLANZapine 5 MG RAPDIS TABLET PO PRN (16:06)
[2020-09-03] MEDS: ZOLPIDEM TARTRATE 10 MG TABLET PO PRN (20:29)
[2020-09-04 04:14] VITALS: BP 116/72
[2020-09-04] MEDS: DIVALPROEX SODIUM 500 MG ER TABLET PO SCH ×2 (08:25→21:00)
[2020-09-04] MEDS: OMEPRAZOLE 20 MG CAPSULE PO SCH (08:25)
[2020-09-04] MEDS: LORazepam 2 MG TABLET PO PRN ×2 (08:26→16:10)
[2020-09-04] MEDS: OLANZapine 7.5 MG TABLET PO SCH ×2 (08:26→21:00)
[2020-09-04] MEDS: AmLODIPine BESYLATE 5 MG TABLET PO SCH (09:01)
[2020-09-04] MEDS: OLANZapine 5 MG RAPDIS TABLET PO PRN (15:50)
[2020-09-04] MEDS: IBUPROFEN 400 MG TABLET PO PRN (16:10)
[2020-09-04 19:15] VITALS: BP 125/78
[2020-09-05] MEDS: LORazepam 2 MG TABLET PO PRN ×2 (08:16→14:28)
[2020-09-05] MEDS: OLANZapine 7.5 MG TABLET PO SCH ×2 (08:16→20:16)
[2020-09-05] MEDS: OMEPRAZOLE 20 MG CAPSULE PO SCH (08:16)
[2020-09-05] MEDS: DIVALPROEX SODIUM 500 MG ER TABLET PO SCH ×2 (08:16→20:16)
[2020-09-05] MEDS: AmLODIPine BESYLATE 5 MG TABLET PO SCH (08:16)
[2020-09-05] MEDS: OLANZapine 5 MG RAPDIS TABLET PO PRN (14:28)
[2020-09-05 16:13] VITALS: BP 110/73
[2020-09-05] MEDS: ZOLPIDEM TARTRATE 10 MG TABLET PO PRN (20:17)
[2020-09-06 05:17] VITALS: BP 128/84
[2020-09-06] MEDS: OLANZapine 7.5 MG TABLET PO SCH ×2 (08:41→20:23)
[2020-09-06] MEDS: AmLODIPine BESYLATE 5 MG TABLET PO SCH (08:41)
[2020-09-06] MEDS: OMEPRAZOLE 20 MG CAPSULE PO SCH (08:41)
[2020-09-06] MEDS: DIVALPROEX SODIUM 500 MG ER TABLET PO SCH ×2 (08:41→20:24)
[2020-09-06] MEDS: LORazepam 2 MG TABLET PO PRN ×2 (13:06→20:24)
[2020-09-06] MEDS: OLANZapine 5 MG RAPDIS TABLET PO PRN (13:06)
[2020-09-06] MEDS: ZOLPIDEM TARTRATE 10 MG TABLET PO PRN (20:24)
[2020-09-07 02:35] VITALS: BP 118/74
[2020-09-07] MEDS: AmLODIPine BESYLATE 5 MG TABLET PO SCH (07:51)
[2020-09-07] MEDS: DIVALPROEX SODIUM 500 MG ER TABLET PO SCH ×2 (07:52→19:49)
[2020-09-07] MEDS: OMEPRAZOLE 20 MG CAPSULE PO SCH (07:52)
[2020-09-07] MEDS: OLANZapine 7.5 MG TABLET PO SCH ×2 (07:52→19:49)
[2020-09-07 12:56] VITALS: BP 116/70
[2020-09-07] MEDS: IBUPROFEN 400 MG TABLET PO PRN (12:56)
[2020-09-07 16:02] VITALS: BP 120/65
[2020-09-08 08:31] VITALS: BP 130/80
[2020-09-08] MEDS: OLANZapine 7.5 MG TABLET PO SCH ×2 (08:39→20:09)
[2020-09-08] MEDS: DIVALPROEX SODIUM 500 MG ER TABLET PO SCH ×2 (08:40→20:08)
[2020-09-08] MEDS: AmLODIPine BESYLATE 5 MG TABLET PO SCH (08:40)
[2020-09-08] MEDS: OMEPRAZOLE 20 MG CAPSULE PO SCH (08:40)
[2020-09-08] MEDS: LORazepam 2 MG TABLET PO PRN (08:40)
[2020-09-08 16:50] VITALS: BP 119/81
[2020-09-09 04:05] VITALS: BP 115/68
[2020-09-09] MEDS: OLANZapine 7.5 MG TABLET PO SCH ×2 (08:31→20:34)
[2020-09-09] MEDS: AmLODIPine BESYLATE 5 MG TABLET PO SCH (08:31)
[2020-09-09] MEDS: OMEPRAZOLE 20 MG CAPSULE PO SCH (08:31)
[2020-09-09] MEDS: DIVALPROEX SODIUM 500 MG ER TABLET PO SCH ×2 (08:31→20:34)
[2020-09-09] MEDS: IBUPROFEN 400 MG TABLET PO PRN (09:11)
[2020-09-09 09:43] VITALS: BP 117/72
[2020-09-09 16:03] VITALS: BP 127/83
[2020-09-09] MEDS: OLANZapine 5 MG RAPDIS TABLET PO PRN (16:34)
[2020-09-09] MEDS: LORazepam 2 MG TABLET PO PRN ×2 (16:34→20:34)
[2020-09-09] MEDS: ZOLPIDEM TARTRATE 10 MG TABLET PO PRN (20:34)
[2020-09-10 04:00] VITALS: BP 118/74
[2020-09-10 08:40] VITALS: BP 121/76
[2020-09-10] MEDS: DIVALPROEX SODIUM 500 MG ER TABLET PO SCH ×2 (08:45→20:23)
[2020-09-10] MEDS: OLANZapine 7.5 MG TABLET PO SCH ×2 (08:45→20:23)
[2020-09-10] MEDS: AmLODIPine BESYLATE 5 MG TABLET PO SCH (08:45)
[2020-09-10] MEDS: OMEPRAZOLE 20 MG CAPSULE PO SCH (08:45)
[2020-09-10] MEDS: LORazepam 2 MG TABLET PO PRN (19:01)
[2020-09-10] MEDS: IBUPROFEN 400 MG TABLET PO PRN (19:01)
[2020-09-11 04:08] VITALS: BP 118/71
[2020-09-11 08:19] VITALS: BP 124/76
[2020-09-11] MEDS: AmLODIPine BESYLATE 5 MG TABLET PO SCH (08:26)
[2020-09-11] MEDS: OMEPRAZOLE 20 MG CAPSULE PO SCH (08:27)
[2020-09-11] MEDS: DIVALPROEX SODIUM 500 MG ER TABLET PO SCH ×2 (08:27→20:08)
[2020-09-11] MEDS: OLANZapine 7.5 MG TABLET PO SCH ×2 (08:27→20:08)
[2020-09-11] MEDS: LORazepam 2 MG TABLET PO PRN ×2 (11:07→16:57)
[2020-09-11 16:08] VITALS: BP 128/79
[2020-09-11] MEDS: ZOLPIDEM TARTRATE 10 MG TABLET PO PRN (20:08)
[2020-09-12] MEDS: DIVALPROEX SODIUM 500 MG ER TABLET PO SCH ×2 (08:43→20:18)
[2020-09-12] MEDS: AmLODIPine BESYLATE 5 MG TABLET PO SCH (08:43)
[2020-09-12] MEDS: OMEPRAZOLE 20 MG CAPSULE PO SCH (08:44)
[2020-09-12] MEDS: OLANZapine 7.5 MG TABLET PO SCH ×2 (08:44→20:18)
[2020-09-12 16:04] VITALS: BP 125/78
[2020-09-12] MEDS: OLANZapine 5 MG RAPDIS TABLET PO PRN (17:08)
[2020-09-13 05:20] VITALS: BP 126/84
[2020-09-13] MEDS: OLANZapine 7.5 MG TABLET PO SCH ×2 (08:26→20:03)
[2020-09-13] MEDS: DIVALPROEX SODIUM 500 MG ER TABLET PO SCH ×2 (08:26→20:01)
[2020-09-13] MEDS: OMEPRAZOLE 20 MG CAPSULE PO SCH (08:26)
[2020-09-13] MEDS: AmLODIPine BESYLATE 5 MG TABLET PO SCH (08:26)
[2020-09-13 16:09] VITALS: BP 133/84
[2020-09-13 19:50] VITALS: BP 124/78
[2020-09-13] MEDS: IBUPROFEN 400 MG TABLET PO PRN (19:50)
[2020-09-13] MEDS: OLANZapine 5 MG RAPDIS TABLET PO PRN (20:53)
[2020-09-14 05:16] VITALS: BP 118/76
[2020-09-14 08:02] VITALS: BP 132/83
[2020-09-14] MEDS: OLANZapine 7.5 MG TABLET PO SCH ×2 (08:26→20:16)
[2020-09-14] MEDS: OMEPRAZOLE 20 MG CAPSULE PO SCH (08:27)
[2020-09-14] MEDS: DIVALPROEX SODIUM 500 MG ER TABLET PO SCH ×2 (08:27→20:16)
[2020-09-14] MEDS: AmLODIPine BESYLATE 5 MG TABLET PO SCH (08:27)
[2020-09-14] MEDS: OLANZapine 5 MG RAPDIS TABLET PO PRN ×2 (14:02→18:13)
[2020-09-14 16:01] VITALS: BP 136/87
[2020-09-15 04:33] VITALS: BP 130/77
[2020-09-15] MEDS: OMEPRAZOLE 20 MG CAPSULE PO SCH (08:24)
[2020-09-15] MEDS: AmLODIPine BESYLATE 5 MG TABLET PO SCH (08:24)
[2020-09-15] MEDS: OLANZapine 7.5 MG TABLET PO SCH ×2 (08:24→20:06)
[2020-09-15] MEDS: DIVALPROEX SODIUM 500 MG ER TABLET PO SCH ×2 (08:24→20:06)
[2020-09-15] MEDS: OLANZapine 5 MG RAPDIS TABLET PO PRN (15:32)
[2020-09-15 16:22] VITALS: BP 117/71
[2020-09-16 01:44] VITALS: BP 121/74
[2020-09-16 08:01] VITALS: BP 124/80
[2020-09-16] MEDS: AmLODIPine BESYLATE 5 MG TABLET PO SCH (08:03)
[2020-09-16] MEDS: OMEPRAZOLE 20 MG CAPSULE PO SCH (08:03)
[2020-09-16] MEDS: DIVALPROEX SODIUM 500 MG ER TABLET PO SCH ×2 (08:03→20:23)
[2020-09-16] MEDS: OLANZapine 7.5 MG TABLET PO SCH ×2 (08:03→20:23)
[2020-09-16] MEDS: OLANZapine 5 MG RAPDIS TABLET PO PRN (16:10)
[2020-09-17 05:18] VITALS: BP 126/84
[2020-09-17] MEDS: OLANZapine 7.5 MG TABLET PO SCH ×2 (08:17→20:15)
[2020-09-17] MEDS: DIVALPROEX SODIUM 500 MG ER TABLET PO SCH ×2 (08:17→20:15)
[2020-09-17] MEDS: AmLODIPine BESYLATE 5 MG TABLET PO SCH (08:17)
[2020-09-17] MEDS: OMEPRAZOLE 20 MG CAPSULE PO SCH (08:17)
[2020-09-17] MEDS: OLANZapine 5 MG RAPDIS TABLET PO PRN ×2 (10:33→16:53)
[2020-09-17 16:03] VITALS: BP 145/91
[2020-09-18 05:09] VITALS: BP 124/80
[2020-09-18] MEDS: DIVALPROEX SODIUM 500 MG ER TABLET PO SCH ×2 (08:17→19:20)
[2020-09-18] MEDS: AmLODIPine BESYLATE 5 MG TABLET PO SCH (08:17)
[2020-09-18] MEDS: OMEPRAZOLE 20 MG CAPSULE PO SCH (08:17)
[2020-09-18] MEDS: OLANZapine 7.5 MG TABLET PO SCH ×2 (08:17→19:20)
[2020-09-18 08:37] VITALS: BP 127/79
[2020-09-18] MEDS ORDERED: TUBERCULIN, PURIFIED PROTEIN DERIVATIVE 5 TU/0.1 ML SYRINGE ID ONE (09:30)
[2020-09-18 16:05] VITALS: BP 137/78
[2020-09-18] MEDS: OLANZapine 5 MG RAPDIS TABLET PO PRN (17:06)
[2020-09-18] MEDS: IBUPROFEN 400 MG TABLET PO PRN (21:50)
[2020-09-19 06:09] VITALS: BP 131/78
[2020-09-19] MEDS: OMEPRAZOLE 20 MG CAPSULE PO SCH (08:40)
[2020-09-19] MEDS: DIVALPROEX SODIUM 500 MG ER TABLET PO SCH ×2 (08:40→20:06)
[2020-09-19] MEDS: OLANZapine 7.5 MG TABLET PO SCH ×2 (08:40→20:06)
[2020-09-19] MEDS: AmLODIPine BESYLATE 5 MG TABLET PO SCH (08:40)
[2020-09-19] MEDS: OLANZapine 5 MG RAPDIS TABLET PO PRN ×2 (11:40→17:51)
[2020-09-19] MEDS: LORazepam 2 MG TABLET PO PRN ×2 (13:52→20:06)
[2020-09-19 16:06] VITALS: BP 131/83
[2020-09-20 06:08] VITALS: BP 126/84
[2020-09-20] MEDS: DIVALPROEX SODIUM 500 MG ER TABLET PO SCH ×2 (08:06→20:34)
[2020-09-20] MEDS: OMEPRAZOLE 20 MG CAPSULE PO SCH (08:06)
[2020-09-20] MEDS: OLANZapine 7.5 MG TABLET PO SCH ×2 (08:06→20:34)
[2020-09-20] MEDS: LORazepam 2 MG TABLET PO PRN ×3 (08:06→20:34)
[2020-09-20] MEDS: AmLODIPine BESYLATE 5 MG TABLET PO SCH (08:06)
[2020-09-20] MEDS: NICOTINE POLACRILEX 2 MG LOZENGE PO PRN (14:26)
[2020-09-20] MEDS: OLANZapine 5 MG RAPDIS TABLET PO PRN (15:21)
[2020-09-20 16:00] VITALS: BP 136/90
[2020-09-21 05:37] VITALS: BP 124/85
[2020-09-21 08:01] VITALS: BP 132/79
[2020-09-21] MEDS: OLANZapine 7.5 MG TABLET PO SCH ×2 (08:37→21:22)
[2020-09-21] MEDS: DIVALPROEX SODIUM 500 MG ER TABLET PO SCH ×2 (08:37→21:22)
[2020-09-21] MEDS: LORazepam 2 MG TABLET PO PRN ×2 (08:37→16:28)
[2020-09-21] MEDS: OMEPRAZOLE 20 MG CAPSULE PO SCH (08:37)
[2020-09-21] MEDS: AmLODIPine BESYLATE 5 MG TABLET PO SCH (08:37)
[2020-09-21] MEDS: IBUPROFEN 400 MG TABLET PO PRN (14:48)
[2020-09-21 14:49] VITALS: BP 136/72
[2020-09-21 16:22] VITALS: BP 131/86
[2020-09-22 02:11] VITALS: BP 125/72
[2020-09-22] MEDS: DIVALPROEX SODIUM 500 MG ER TABLET PO SCH ×2 (08:13→20:05)
[2020-09-22] MEDS: OMEPRAZOLE 20 MG CAPSULE PO SCH (08:14)
[2020-09-22] MEDS: AmLODIPine BESYLATE 5 MG TABLET PO SCH (08:14)
[2020-09-22] MEDS: LORazepam 2 MG TABLET PO PRN ×2 (08:14→16:05)
[2020-09-22] MEDS: OLANZapine 7.5 MG TABLET PO SCH ×2 (08:14→20:05)
[2020-09-22 16:02] VITALS: BP 153/79
[2020-09-22] MEDS: OLANZapine 5 MG RAPDIS TABLET PO PRN (16:05)
[2020-09-22 17:05] VITALS: BP 140/80
[2020-09-22] MEDS: IBUPROFEN 400 MG TABLET PO PRN (17:54)
[2020-09-23] MEDS: DIVALPROEX SODIUM 500 MG ER TABLET PO SCH ×2 (08:34→20:23)
[2020-09-23] MEDS: AmLODIPine BESYLATE 5 MG TABLET PO SCH (08:34)
[2020-09-23] MEDS: OMEPRAZOLE 20 MG CAPSULE PO SCH (08:34)
[2020-09-23] MEDS: OLANZapine 7.5 MG TABLET PO SCH ×2 (08:35→20:23)
[2020-09-23] MEDS: OLANZapine 5 MG RAPDIS TABLET PO PRN ×2 (11:12→16:45)
[2020-09-23] MEDS: LORazepam 2 MG TABLET PO PRN ×2 (11:12→16:45)
[2020-09-24 08:05] VITALS: BP 112/78
[2020-09-24] MEDS: DIVALPROEX SODIUM 500 MG ER TABLET PO SCH ×2 (08:05→20:35)
[2020-09-24] MEDS: LORazepam 2 MG TABLET PO PRN ×3 (08:06→18:42)
[2020-09-24] MEDS: OLANZapine 7.5 MG TABLET PO SCH ×2 (08:06→20:35)
[2020-09-24] MEDS: OMEPRAZOLE 20 MG CAPSULE PO SCH (08:06)
[2020-09-24] MEDS: AmLODIPine BESYLATE 5 MG TABLET PO SCH (08:06)
[2020-09-24] MEDS: OLANZapine 5 MG RAPDIS TABLET PO PRN (16:37)
[2020-09-25 06:03] VITALS: BP 132/88
[2020-09-25] MEDS: OMEPRAZOLE 20 MG CAPSULE PO SCH (08:00)
[2020-09-25 08:01] VITALS: BP 125/76
[2020-09-25] MEDS: AmLODIPine BESYLATE 5 MG TABLET PO SCH (08:01)
[2020-09-25] MEDS: LORazepam 2 MG TABLET PO PRN ×2 (08:01→16:46)
[2020-09-25] MEDS: DIVALPROEX SODIUM 500 MG ER TABLET PO SCH ×2 (08:01→20:50)
[2020-09-25] MEDS: OLANZapine 7.5 MG TABLET PO SCH ×2 (08:01→20:50)
[2020-09-25 16:00] VITALS: BP 123/76
[2020-09-25] MEDS: OLANZapine 5 MG RAPDIS TABLET PO PRN (16:46)
[2020-09-26 06:05] VITALS: BP 133/78
[2020-09-26] MEDS: OMEPRAZOLE 20 MG CAPSULE PO SCH (08:11)
[2020-09-26] MEDS: AmLODIPine BESYLATE 5 MG TABLET PO SCH (08:11)
[2020-09-26] MEDS: OLANZapine 7.5 MG TABLET PO SCH ×2 (08:11→20:31)
[2020-09-26] MEDS: DIVALPROEX SODIUM 500 MG ER TABLET PO SCH ×2 (08:11→20:31)
[2020-09-26] MEDS: LORazepam 2 MG TABLET PO PRN ×2 (08:11→15:52)
[2020-09-26 17:14] VITALS: BP 127/84
[2020-09-27 06:42] VITALS: BP 121/80
[2020-09-27] MEDS: AmLODIPine BESYLATE 5 MG TABLET PO SCH (08:23)
[2020-09-27] MEDS: DIVALPROEX SODIUM 500 MG ER TABLET PO SCH ×2 (08:23→20:12)
[2020-09-27] MEDS: LORazepam 2 MG TABLET PO PRN ×2 (08:24→15:35)
[2020-09-27] MEDS: OLANZapine 7.5 MG TABLET PO SCH ×2 (08:24→20:11)
[2020-09-27] MEDS: OMEPRAZOLE 20 MG CAPSULE PO SCH (08:24)
[2020-09-27 08:38] VITALS: BP 109/66
[2020-09-27] MEDS: OLANZapine 5 MG RAPDIS TABLET PO PRN (15:35)
[2020-09-27] MEDS: IBUPROFEN 400 MG TABLET PO PRN (15:35)
[2020-09-27 16:24] VITALS: BP 124/78
[2020-09-28 08:00] VITALS: BP 117/73
[2020-09-28] MEDS: OLANZapine 7.5 MG TABLET PO SCH ×2 (08:07→20:26)
[2020-09-28] MEDS: AmLODIPine BESYLATE 5 MG TABLET PO SCH (08:07)
[2020-09-28] MEDS: OMEPRAZOLE 20 MG CAPSULE PO SCH (08:07)
[2020-09-28] MEDS: DIVALPROEX SODIUM 500 MG ER TABLET PO SCH ×2 (08:07→20:26)
[2020-09-28] MEDS: LORazepam 2 MG TABLET PO PRN ×2 (08:07→16:26)
[2020-09-28 16:06] VITALS: BP 117/71
[2020-09-28] MEDS: OLANZapine 5 MG RAPDIS TABLET PO PRN (16:26)
[2020-09-29 02:53] VITALS: BP 115/68
[2020-09-29] MEDS: OLANZapine 7.5 MG TABLET PO SCH ×2 (08:35→20:16)
[2020-09-29] MEDS: DIVALPROEX SODIUM 500 MG ER TABLET PO SCH ×2 (08:35→20:16)
[2020-09-29] MEDS: OMEPRAZOLE 20 MG CAPSULE PO SCH (08:35)
[2020-09-29] MEDS: AmLODIPine BESYLATE 5 MG TABLET PO SCH (08:36)
[2020-09-29] MEDS: LORazepam 2 MG TABLET PO PRN ×2 (08:36→16:18)
[2020-09-29] MEDS: OLANZapine 5 MG RAPDIS TABLET PO PRN (16:18)
[2020-09-29 16:28] VITALS: BP 110/80
[2020-09-30 06:24] VITALS: BP 134/84
[2020-09-30 07:59] VITALS: BP 136/72
[2020-09-30] MEDS: LORazepam 2 MG TABLET PO PRN ×2 (08:17→16:17)
[2020-09-30] MEDS: AmLODIPine BESYLATE 5 MG TABLET PO SCH (08:17)
[2020-09-30] MEDS: DIVALPROEX SODIUM 500 MG ER TABLET PO SCH ×2 (08:18→20:28)
[2020-09-30] MEDS: OMEPRAZOLE 20 MG CAPSULE PO SCH (08:18)
[2020-09-30] MEDS: OLANZapine 7.5 MG TABLET PO SCH ×2 (08:18→20:28)
[2020-09-30 16:03] VITALS: BP 118/79
[2020-09-30] MEDS: OLANZapine 5 MG RAPDIS TABLET PO PRN (16:17)
[2020-10-01 06:37] VITALS: BP 104/68
[2020-10-01] MEDS: OMEPRAZOLE 20 MG CAPSULE PO SCH (08:43)
[2020-10-01] MEDS: DIVALPROEX SODIUM 500 MG ER TABLET PO SCH ×2 (08:43→20:12)
[2020-10-01] MEDS: LORazepam 2 MG TABLET PO PRN ×2 (08:43→14:53)
[2020-10-01] MEDS: AmLODIPine BESYLATE 5 MG TABLET PO SCH (08:44)
[2020-10-01] MEDS: OLANZapine 7.5 MG TABLET PO SCH ×2 (08:44→20:12)
[2020-10-01] MEDS: IBUPROFEN 400 MG TABLET PO PRN (14:53)
[2020-10-01 16:06] VITALS: BP 144/92
[2020-10-02 05:12] VITALS: BP 130/88
[2020-10-02] MEDS: OMEPRAZOLE 20 MG CAPSULE PO SCH (08:14)
[2020-10-02] MEDS: DIVALPROEX SODIUM 500 MG ER TABLET PO SCH ×2 (08:14→20:12)
[2020-10-02] MEDS: OLANZapine 7.5 MG TABLET PO SCH ×2 (08:14→20:13)
[2020-10-02] MEDS: AmLODIPine BESYLATE 5 MG TABLET PO SCH (08:15)
[2020-10-02] MEDS: LORazepam 2 MG TABLET PO PRN ×3 (08:15→22:15)
[2020-10-02 08:16] VITALS: BP 142/82
[2020-10-02 16:22] VITALS: BP 154/94
[2020-10-02] MEDS: OLANZapine 5 MG RAPDIS TABLET PO PRN (17:32)
[2020-10-03 00:35] VITALS: BP 111/80
[2020-10-03] MEDS: OLANZapine 7.5 MG TABLET PO SCH ×2 (08:00→20:17)
[2020-10-03] MEDS: DIVALPROEX SODIUM 500 MG ER TABLET PO SCH ×2 (08:00→20:17)
[2020-10-03] MEDS: OMEPRAZOLE 20 MG CAPSULE PO SCH (08:00)
[2020-10-03] MEDS: AmLODIPine BESYLATE 5 MG TABLET PO SCH (08:00)
[2020-10-03] MEDS: LORazepam 2 MG TABLET PO PRN ×2 (08:00→16:22)
[2020-10-03] MEDS: IBUPROFEN 400 MG TABLET PO PRN (14:18)
[2020-10-03 16:00] VITALS: BP 135/91
[2020-10-04 03:12] VITALS: BP 132/82
[2020-10-04] MEDS: OLANZapine 7.5 MG TABLET PO SCH ×2 (08:05→20:36)
[2020-10-04] MEDS: LORazepam 2 MG TABLET PO PRN ×2 (08:05→16:15)
[2020-10-04] MEDS: DIVALPROEX SODIUM 500 MG ER TABLET PO SCH ×2 (08:05→20:36)
[2020-10-04] MEDS: AmLODIPine BESYLATE 5 MG TABLET PO SCH (08:05)
[2020-10-04] MEDS: OMEPRAZOLE 20 MG CAPSULE PO SCH (08:05)
[2020-10-04] MEDS: NICOTINE POLACRILEX 2 MG LOZENGE PO PRN (13:55)
[2020-10-04 16:59] VITALS: BP 126/88
[2020-10-05 02:19] VITALS: BP 124/70
[2020-10-05 08:01] VITALS: BP 131/82
[2020-10-05] MEDS: AmLODIPine BESYLATE 5 MG TABLET PO SCH (08:39)
[2020-10-05] MEDS: OLANZapine 7.5 MG TABLET PO SCH ×2 (08:39→21:07)
[2020-10-05] MEDS: DIVALPROEX SODIUM 500 MG ER TABLET PO SCH ×2 (08:39→21:07)
[2020-10-05] MEDS: OMEPRAZOLE 20 MG CAPSULE PO SCH (08:39)
[2020-10-05] MEDS: LORazepam 2 MG TABLET PO PRN (10:34)
[2020-10-05 16:22] VITALS: BP 116/80
[2020-10-06 05:05] VITALS: BP 126/76
[2020-10-06] MEDS: AmLODIPine BESYLATE 5 MG TABLET PO SCH (09:32)
[2020-10-06] MEDS: OMEPRAZOLE 20 MG CAPSULE PO SCH (09:32)
[2020-10-06] MEDS: DIVALPROEX SODIUM 500 MG ER TABLET PO SCH ×2 (09:32→20:18)
[2020-10-06] MEDS: OLANZapine 7.5 MG TABLET PO SCH ×2 (09:32→20:17)
[2020-10-06 16:01] VITALS: BP 123/61
[2020-10-06] MEDS: LORazepam 2 MG TABLET PO PRN (20:17)
[2020-10-07 08:31] VITALS: BP 129/78
[2020-10-07] MEDS: AmLODIPine BESYLATE 5 MG TABLET PO SCH (10:14)
[2020-10-07] MEDS: OMEPRAZOLE 20 MG CAPSULE PO SCH (10:15)
[2020-10-07] MEDS: OLANZapine 7.5 MG TABLET PO SCH ×2 (10:15→20:35)
[2020-10-07] MEDS: DIVALPROEX SODIUM 500 MG ER TABLET PO SCH ×2 (10:16→20:34)
[2020-10-07] MEDS: NICOTINE POLACRILEX 2 MG LOZENGE PO PRN (12:49)
[2020-10-07] MEDS: LORazepam 2 MG TABLET PO PRN (15:45)
[2020-10-07 16:27] VITALS: BP 132/80
[2020-10-08 01:48] VITALS: BP 126/76
[2020-10-08] MEDS: OLANZapine 7.5 MG TABLET PO SCH ×2 (08:54→20:09)
[2020-10-08] MEDS: LORazepam 2 MG TABLET PO PRN ×2 (08:54→16:28)
[2020-10-08] MEDS: DIVALPROEX SODIUM 500 MG ER TABLET PO SCH ×2 (08:54→20:09)
[2020-10-08] MEDS: OMEPRAZOLE 20 MG CAPSULE PO SCH (08:54)
[2020-10-08] MEDS: AmLODIPine BESYLATE 5 MG TABLET PO SCH (08:54)
[2020-10-08 16:05] VITALS: BP 115/82
[2020-10-08] MEDS: NICOTINE POLACRILEX 2 MG LOZENGE PO PRN (18:32)
[2020-10-09 03:05] VITALS: BP 118/74
[2020-10-09 08:01] VITALS: BP 131/85
[2020-10-09] MEDS: AmLODIPine BESYLATE 5 MG TABLET PO SCH (08:26)
[2020-10-09] MEDS: OMEPRAZOLE 20 MG CAPSULE PO SCH (08:26)
[2020-10-09] MEDS: DIVALPROEX SODIUM 500 MG ER TABLET PO SCH ×2 (08:26→20:16)
[2020-10-09] MEDS: OLANZapine 7.5 MG TABLET PO SCH ×2 (08:26→20:17)
[2020-10-09] MEDS: NICOTINE POLACRILEX 2 MG LOZENGE PO PRN ×2 (09:43→17:59)
[2020-10-09 16:03] VITALS: BP 133/83
[2020-10-09] MEDS: LORazepam 2 MG TABLET PO PRN (16:35)
[2020-10-10 02:50] VITALS: BP 128/80
[2020-10-10] MEDS: OMEPRAZOLE 20 MG CAPSULE PO SCH (08:03)
[2020-10-10] MEDS: OLANZapine 7.5 MG TABLET PO SCH ×2 (08:03→20:43)
[2020-10-10] MEDS: DIVALPROEX SODIUM 500 MG ER TABLET PO SCH ×2 (08:03→20:44)
[2020-10-10] MEDS: AmLODIPine BESYLATE 5 MG TABLET PO SCH (08:03)
[2020-10-10] MEDS: LORazepam 2 MG TABLET PO PRN (10:30)
[2020-10-10 16:03] VITALS: BP 148/72
[2020-10-11 05:48] VITALS: BP 132/81
[2020-10-11] MEDS: AmLODIPine BESYLATE 5 MG TABLET PO SCH (08:44)
[2020-10-11] MEDS: LORazepam 2 MG TABLET PO PRN ×2 (08:44→18:25)
[2020-10-11] MEDS: OLANZapine 7.5 MG TABLET PO SCH ×2 (08:45→20:43)
[2020-10-11] MEDS: OMEPRAZOLE 20 MG CAPSULE PO SCH (08:45)
[2020-10-11] MEDS: DIVALPROEX SODIUM 500 MG ER TABLET PO SCH ×2 (08:45→20:43)
[2020-10-11 08:49] VITALS: BP 127/89
[2020-10-11] MEDS: NICOTINE POLACRILEX 2 MG LOZENGE PO PRN ×3 (14:35→22:36)
[2020-10-11 16:39] VITALS: BP 118/76
[2020-10-12 04:43] VITALS: BP 120/74
[2020-10-12 08:01] VITALS: BP 117/76
[2020-10-12] MEDS: AmLODIPine BESYLATE 5 MG TABLET PO SCH (08:05)
[2020-10-12] MEDS: DIVALPROEX SODIUM 500 MG ER TABLET PO SCH ×2 (08:05→20:16)
[2020-10-12] MEDS: OLANZapine 7.5 MG TABLET PO SCH ×2 (08:05→20:16)
[2020-10-12] MEDS: LORazepam 2 MG TABLET PO PRN ×2 (08:06→16:08)
[2020-10-12] MEDS: OMEPRAZOLE 20 MG CAPSULE PO SCH (08:06)
[2020-10-12 17:30] VITALS: BP 125/87
[2020-10-12 22:07] LABS: COVID AG,FIA SOURCE NASOPHARYNGEAL
[2020-10-13 03:23] VITALS: BP 119/83
[2020-10-13 08:01] VITALS: BP 134/83
[2020-10-13] MEDS: OLANZapine 7.5 MG TABLET PO SCH ×2 (08:20→20:14)
[2020-10-13] MEDS: DIVALPROEX SODIUM 500 MG ER TABLET PO SCH ×2 (08:20→20:14)
[2020-10-13] MEDS: OMEPRAZOLE 20 MG CAPSULE PO SCH (08:20)
[2020-10-13] MEDS: AmLODIPine BESYLATE 5 MG TABLET PO SCH (08:20)
[2020-10-13] MEDS: LORazepam 2 MG TABLET PO PRN ×2 (09:20→16:04)
[2020-10-13 16:00] VITALS: BP 138/88
[2020-10-14 01:34] VITALS: BP 122/86
[2020-10-14 08:01] VITALS: BP 136/89
[2020-10-14] MEDS: AmLODIPine BESYLATE 5 MG TABLET PO SCH (09:33)
[2020-10-14] MEDS: OLANZapine 7.5 MG TABLET PO SCH ×2 (09:33→20:27)
[2020-10-14] MEDS: OMEPRAZOLE 20 MG CAPSULE PO SCH (09:33)
[2020-10-14] MEDS: DIVALPROEX SODIUM 500 MG ER TABLET PO SCH ×2 (09:33→20:27)
[2020-10-14] MEDS: LORazepam 2 MG TABLET PO PRN (16:13)
[2020-10-14] MEDS: NICOTINE POLACRILEX 2 MG LOZENGE PO PRN (17:52)
[2020-10-15 03:18] VITALS: BP 126/78
[2020-10-15 08:01] VITALS: BP 129/81
[2020-10-15] MEDS: DIVALPROEX SODIUM 500 MG ER TABLET PO SCH ×2 (08:10→20:14)
[2020-10-15] MEDS: OMEPRAZOLE 20 MG CAPSULE PO SCH (08:10)
[2020-10-15] MEDS: AmLODIPine BESYLATE 5 MG TABLET PO SCH (08:10)
[2020-10-15] MEDS: OLANZapine 7.5 MG TABLET PO SCH ×2 (08:11→20:14)
[2020-10-15] MEDS: LORazepam 2 MG TABLET PO PRN (08:11)
[2020-10-15] MEDS: NICOTINE POLACRILEX 2 MG LOZENGE PO PRN (12:56)
[2020-10-15 16:00] VITALS: BP 136/81
[2020-10-15 21:00] VITALS: BP 120/80
[2020-10-15] MEDS: IBUPROFEN 400 MG TABLET PO PRN (21:43)
[2020-10-16 06:07] VITALS: BP 116/79
[2020-10-16] MEDS: DIVALPROEX SODIUM 500 MG ER TABLET PO SCH ×2 (08:28→20:57)
[2020-10-16] MEDS: OLANZapine 7.5 MG TABLET PO SCH ×2 (08:28→20:57)
[2020-10-16] MEDS: AmLODIPine BESYLATE 5 MG TABLET PO SCH (08:28)
[2020-10-16] MEDS: OMEPRAZOLE 20 MG CAPSULE PO SCH (08:28)
[2020-10-16] MEDS: LORazepam 2 MG TABLET PO PRN (08:28)
[2020-10-16 09:55] VITALS: BP 106/62
[2020-10-16 16:03] VITALS: BP 141/92
[2020-10-17 06:42] VITALS: BP 131/86
[2020-10-17] MEDS: OLANZapine 7.5 MG TABLET PO SCH ×2 (08:00→20:14)
[2020-10-17] MEDS: LORazepam 2 MG TABLET PO PRN ×2 (08:00→16:18)
[2020-10-17] MEDS: OMEPRAZOLE 20 MG CAPSULE PO SCH (08:00)
[2020-10-17] MEDS: DIVALPROEX SODIUM 500 MG ER TABLET PO SCH ×2 (08:00→20:14)
[2020-10-17] MEDS: AmLODIPine BESYLATE 5 MG TABLET PO SCH (08:00)
[2020-10-17 08:01] VITALS: BP 123/81
[2020-10-17 16:13] VITALS: BP 115/69
[2020-10-18 06:35] VITALS: BP 125/68
[2020-10-18] MEDS: OMEPRAZOLE 20 MG CAPSULE PO SCH (08:00)
[2020-10-18] MEDS: OLANZapine 7.5 MG TABLET PO SCH ×2 (08:00→20:42)
[2020-10-18] MEDS: DIVALPROEX SODIUM 500 MG ER TABLET PO SCH ×2 (08:00→20:42)
[2020-10-18] MEDS: LORazepam 2 MG TABLET PO PRN ×2 (08:00→16:13)
[2020-10-18] MEDS: AmLODIPine BESYLATE 5 MG TABLET PO SCH (08:00)
[2020-10-18 08:01] VITALS: BP 109/68
[2020-10-18] MEDS: OLANZapine 5 MG RAPDIS TABLET PO PRN (12:31)
[2020-10-18 16:12] VITALS: BP 126/77
[2020-10-18] MEDS: NICOTINE POLACRILEX 2 MG LOZENGE PO PRN (16:44)
[2020-10-19 02:23] VITALS: BP 128/69
[2020-10-19 08:01] VITALS: BP 138/75
[2020-10-19] MEDS: DIVALPROEX SODIUM 500 MG ER TABLET PO SCH ×2 (08:33→20:27)
[2020-10-19] MEDS: OLANZapine 7.5 MG TABLET PO SCH ×2 (08:33→20:27)
[2020-10-19] MEDS: OLANZapine 5 MG RAPDIS TABLET PO PRN (08:34)
[2020-10-19] MEDS: OMEPRAZOLE 20 MG CAPSULE PO SCH (08:34)
[2020-10-19] MEDS: LORazepam 2 MG TABLET PO PRN ×2 (08:34→16:03)
[2020-10-19] MEDS: AmLODIPine BESYLATE 5 MG TABLET PO SCH (08:34)
[2020-10-19 16:07] VITALS: BP 134/93
[2020-10-20 02:13] VITALS: BP 125/88
[2020-10-20 08:29] VITALS: BP 127/81
[2020-10-20] MEDS: DIVALPROEX SODIUM 500 MG ER TABLET PO SCH ×2 (10:13→20:41)
[2020-10-20] MEDS: OMEPRAZOLE 20 MG CAPSULE PO SCH (10:13)
[2020-10-20] MEDS: AmLODIPine BESYLATE 5 MG TABLET PO SCH (10:13)
[2020-10-20] MEDS: OLANZapine 7.5 MG TABLET PO SCH ×2 (10:13→20:41)
[2020-10-20 16:01] VITALS: BP 137/88
[2020-10-21 03:27] VITALS: BP 128/78
[2020-10-21 04:21] VITALS: BP 127/82
[2020-10-21] MEDS: OMEPRAZOLE 20 MG CAPSULE PO SCH (08:38)
[2020-10-21] MEDS: AmLODIPine BESYLATE 5 MG TABLET PO SCH (08:38)
[2020-10-21] MEDS: DIVALPROEX SODIUM 500 MG ER TABLET PO SCH ×2 (08:38→20:20)
[2020-10-21] MEDS: OLANZapine 7.5 MG TABLET PO SCH ×2 (08:38→20:20)
[2020-10-21] MEDS: LORazepam 2 MG TABLET PO PRN ×2 (08:38→16:02)
[2020-10-21 08:46] VITALS: BP 124/82
[2020-10-21 16:13] VITALS: BP 120/90
[2020-10-22 02:20] VITALS: BP 129/82
[2020-10-22] MEDS: LORazepam 2 MG TABLET PO PRN (08:00)
[2020-10-22] MEDS: AmLODIPine BESYLATE 5 MG TABLET PO SCH (08:00)
[2020-10-22] MEDS: OLANZapine 7.5 MG TABLET PO SCH ×2 (08:00→19:55)
[2020-10-22] MEDS: DIVALPROEX SODIUM 500 MG ER TABLET PO SCH ×2 (08:00→19:54)
[2020-10-22] MEDS: OMEPRAZOLE 20 MG CAPSULE PO SCH (08:00)
[2020-10-22 08:01] VITALS: BP 130/79
[2020-10-22 16:04] VITALS: BP 145/83
[2020-10-23 05:20] VITALS: BP 126/80
[2020-10-23 08:07] VITALS: BP 107/67
[2020-10-23] MEDS: DIVALPROEX SODIUM 500 MG ER TABLET PO SCH ×2 (08:17→20:10)
[2020-10-23] MEDS: OLANZapine 7.5 MG TABLET PO SCH ×2 (08:17→20:10)
[2020-10-23] MEDS: AmLODIPine BESYLATE 5 MG TABLET PO SCH (08:17)
[2020-10-23] MEDS: OMEPRAZOLE 20 MG CAPSULE PO SCH (08:17)
[2020-10-23 16:03] VITALS: BP 119/70
[2020-10-23] MEDS: LORazepam 2 MG TABLET PO PRN (22:21)
[2020-10-24 00:49] VITALS: BP 119/78
[2020-10-24 07:48] LABS: BASOPHILS % (AUTO) 0.6 % (0.0-2.0); EOSINOPHILS % (AUTO) 4.5 % (1.0-6.0); HEMATOCRIT 44.9 % (41-53); HEMOGLOBIN 15.8 g/dL (13.5-17.5); LYMPHOCYTES # (AUTO) 2.8 K/uL (1.0-4.8); LYMPHOCYTES % (AUTO) 34.7 % (22.0-44.0); MEAN CORPUSCULAR HEMOGLOBIN 30.8 pg (26.0-34.0); MEAN CORPUSCULAR HGB CONC 35.1 G/dL (31.0-37.0); MEAN CORPUSCULAR VOLUME 88 fL (80-100); MONOCYTES # (AUTO) 0.7 K/uL (0.1-1.0); MONOCYTES % (AUTO) 8.8 % (2.0-9.0); NEUTROPHILS # (AUTO) 4.1 K/uL (1.8-7.7); NEUTROPHILS % (AUTO) 51.4 % (40.0-70.0); PLATELET COUNT (AUTO) 202 K/uL (150-450); RED BLOOD CELL COUNT(AUTO) 5.12 MIL/uL (4.50-5.90); RED CELL DISTRIBUTION WIDTH 13.6 % (11.5-14.5)
[2020-10-24 08:05] LABS: ALANINE AMINOTRANSFERASE 35 U/L (12-78); ALBUMIN 3.6 g/dL (3.4-5.0); ALKALINE PHOSPHATASE 42 U/L (46-116); ANION GAP 8 mmol/L (8-16); ASPARTATE AMINOTRANSFERASE 16 U/L (15-37); BILIRUBIN,TOTAL 0.3 mg/dL (0.1-1.0); CALCIUM, TOTAL 8.9 mg/dL (8.8-10.5); CARBON DIOXIDE 28 mmol/L (22-29); CHLORIDE 104 mmol/L (98-107); GLOMERULAR FILTR. RATE CALC > 60 mL/min (>60); GLUCOSE,RANDOM 102 mg/dL (70-110); POTASSIUM 4.2 mmol/L (3.5-5.1); SODIUM SERUM 140 mmol/L (136-145); TOTAL PROTEIN, SERUM 6.8 g/dL (6.4-8.2); UREA NITROGEN, BLOOD 12 mg/dL (7-18)
[2020-10-24] MEDS: DIVALPROEX SODIUM 500 MG ER TABLET PO SCH ×2 (08:12→20:11)
[2020-10-24] MEDS: AmLODIPine BESYLATE 5 MG TABLET PO SCH (08:12)
[2020-10-24] MEDS: OMEPRAZOLE 20 MG CAPSULE PO SCH (08:12)
[2020-10-24] MEDS: OLANZapine 7.5 MG TABLET PO SCH ×2 (08:12→20:11)
[2020-10-24 08:15] VITALS: BP 106/70
[2020-10-24 16:03] VITALS: BP 131/82
[2020-10-25 00:07] VITALS: BP 117/67
[2020-10-25 08:11] VITALS: BP 143/79
[2020-10-25] MEDS: DIVALPROEX SODIUM 500 MG ER TABLET PO SCH ×2 (08:17→20:39)
[2020-10-25] MEDS: OLANZapine 7.5 MG TABLET PO SCH ×2 (08:17→20:40)
[2020-10-25] MEDS: OMEPRAZOLE 20 MG CAPSULE PO SCH (08:17)
[2020-10-25] MEDS: LORazepam 2 MG TABLET PO PRN ×2 (08:17→16:37)
[2020-10-25] MEDS: AmLODIPine BESYLATE 5 MG TABLET PO SCH (08:17)
[2020-10-25 16:00] VITALS: BP 137/86
[2020-10-26 00:08] VITALS: BP 132/73
[2020-10-26 08:06] VITALS: BP 114/69
[2020-10-26] MEDS: OMEPRAZOLE 20 MG CAPSULE PO SCH (08:13)
[2020-10-26] MEDS: OLANZapine 7.5 MG TABLET PO SCH ×2 (08:13→20:11)
[2020-10-26] MEDS: DIVALPROEX SODIUM 500 MG ER TABLET PO SCH ×2 (08:13→20:11)
[2020-10-26] MEDS: AmLODIPine BESYLATE 5 MG TABLET PO SCH (08:14)
[2020-10-26] MEDS: LORazepam 2 MG TABLET PO PRN ×2 (08:19→17:00)
[2020-10-26 16:02] VITALS: BP 140/79
[2020-10-26 18:48] VITALS: BP 107/69
[2020-10-26] MEDS: IBUPROFEN 400 MG TABLET PO PRN (18:49)
[2020-10-27] VITALS: BP 116/68
[2020-10-27 08:06] VITALS: BP 130/75
[2020-10-27] MEDS: OMEPRAZOLE 20 MG CAPSULE PO SCH (08:23)
[2020-10-27] MEDS: DIVALPROEX SODIUM 500 MG ER TABLET PO SCH ×2 (08:23→20:05)
[2020-10-27] MEDS: AmLODIPine BESYLATE 5 MG TABLET PO SCH (08:23)
[2020-10-27] MEDS: OLANZapine 7.5 MG TABLET PO SCH ×2 (08:23→20:05)
[2020-10-27 16:05] VITALS: BP 131/79
[2020-10-28 00:15] VITALS: BP 141/74
[2020-10-28] MEDS: LORazepam 2 MG TABLET PO PRN (00:23)
[2020-10-28] MEDS: OLANZapine 5 MG RAPDIS TABLET PO PRN (00:23)
[2020-10-28 08:17] VITALS: BP 117/78
[2020-10-28] MEDS: OLANZapine 7.5 MG TABLET PO SCH ×2 (08:41→20:08)
[2020-10-28] MEDS: OMEPRAZOLE 20 MG CAPSULE PO SCH (08:42)
[2020-10-28] MEDS: DIVALPROEX SODIUM 500 MG ER TABLET PO SCH ×2 (08:42→20:08)
[2020-10-28] MEDS: AmLODIPine BESYLATE 5 MG TABLET PO SCH (08:42)
[2020-10-28] MEDS: IBUPROFEN 400 MG TABLET PO PRN (15:35)
[2020-10-28 16:34] VITALS: BP 117/80
[2020-10-29] MEDS ORDERED: AMLO-257 PO (16:59)
[2020-10-30] MEDS ORDERED: ACET650S24 PR (15:33)
== END 2020-10-29 17:00 | disposition short-term general hospital (02) | DRG 750 ==
LOC: EMS 16:31 → B2S 19:07 → B3A 08-29 13:30 → B2S 10-22 13:47
PROVIDERS: ADMIT Psychiatry & Neurology Psychiatry; ATTEND Psychiatry & Neurology Psychiatry
DX: F20.9 Schizophrenia, unspecified (principal); E78.5 Hyperlipidemia, unspecified; K21.9 Gastro-esophageal reflux disease without esophagitis; F10.10 Alcohol abuse, uncomplicated; R45.851 Suicidal ideations; F12.90 Cannabis use, unspecified, uncomplicated; I10 Essential (primary) hypertension; Z20.828 Contact with and (suspected) exposure to other viral communicable diseases; F17.200 Nicotine dependence, unspecified, uncomplicated; Z86.73 Personal history of transient ischemic attack (TIA), and cerebral infarction without residual deficits; Z71.6 Tobacco abuse counseling; Z28.21 Immunization not carried out because of patient refusal
CPT/HCPCS: 87426; 90686; G0480; J1200; J1630; J2060

== ENCOUNTER 2020-10-30 18:37 | Inpatient (IN) | payer MEDICAID ==
[~2020-10-30] VITALS: Ht 175.3 cm; Wt 104.3 kg
[~2020-10-30 18:37] MED LIST changes: +ACET650S24 PR; +AMLO-257 PO
[2020-10-30] MEDS ORDERED: ZOLPIDEM TARTRATE 10 MG TABLET PO PRN (21:45)
[2020-10-30] MEDS ORDERED: -PHARMACY VACCINE NOTE- MISC ONE (22:45)
[2020-10-30 23:12] VITALS: BP 130/72
[2020-10-31 05:25] VITALS: BP 128/70
[2020-10-31 08:11] VITALS: BP 116/70
[2020-10-31] MEDS: AmLODIPine BESYLATE 5 MG TABLET PO SCH (08:17)
[2020-10-31] MEDS: LORazepam 2 MG TABLET PO PRN (08:18)
[2020-10-31] MEDS: OMEPRAZOLE 20 MG CAPSULE PO SCH (08:18)
[2020-10-31] MEDS: OLANZapine 10 MG TABLET PO SCH ×2 (11:12→20:09)
[2020-10-31] MEDS: DIVALPROEX SODIUM 500 MG ER TABLET PO SCH ×2 (11:12→20:09)
[2020-10-31 16:07] VITALS: BP 116/65
[2020-11-01] VITALS: BP 124/68
[2020-11-01 06:40] VITALS: BP 126/62
[2020-11-01 08:20] VITALS: BP 118/68
[2020-11-01] MEDS: OMEPRAZOLE 20 MG CAPSULE PO SCH (08:24)
[2020-11-01] MEDS: OLANZapine 10 MG TABLET PO SCH ×2 (08:24→20:23)
[2020-11-01] MEDS: DIVALPROEX SODIUM 500 MG ER TABLET PO SCH ×2 (08:24→20:23)
[2020-11-01] MEDS: AmLODIPine BESYLATE 5 MG TABLET PO SCH (08:24)
[2020-11-01] MEDS: LORazepam 2 MG TABLET PO PRN (08:25)
[2020-11-01 17:37] VITALS: BP 110/77
[2020-11-01] MEDS: IBUPROFEN 400 MG TABLET PO PRN (17:59)
[2020-11-02 04:15] VITALS: BP 110/88
[2020-11-02 08:10] LABS: BASOPHILS % (AUTO) 0.5 % (0.0-2.0); EOSINOPHILS % (AUTO) 3.8 % (1.0-6.0); HEMATOCRIT 45.1 % (41-53); HEMOGLOBIN 15.1 g/dL (13.5-17.5); LYMPHOCYTES # (AUTO) 3.8 K/uL (1.0-4.8); LYMPHOCYTES % (AUTO) 49.2 % (22.0-44.0); MEAN CORPUSCULAR HEMOGLOBIN 29.3 pg (26.0-34.0); MEAN CORPUSCULAR HGB CONC 33.6 G/dL (31.0-37.0); MEAN CORPUSCULAR VOLUME 87 fL (80-100); MONOCYTES # (AUTO) 0.6 K/uL (0.1-1.0); MONOCYTES % (AUTO) 7.7 % (2.0-9.0); NEUTROPHILS % (AUTO) 38.8 % (40.0-70.0); PLATELET COUNT (AUTO) 220 K/uL (150-450); RED BLOOD CELL COUNT(AUTO) 5.16 MIL/uL (4.50-5.90); RED CELL DISTRIBUTION WIDTH 13.4 % (11.5-14.5)
[2020-11-02 08:31] VITALS: BP 107/63
[2020-11-02 08:32] LABS: ALANINE AMINOTRANSFERASE 48 U/L (12-78); ALBUMIN 3.3 g/dL (3.4-5.0); ALKALINE PHOSPHATASE 35 U/L (46-116); ANION GAP 7 mmol/L (8-16); ASPARTATE AMINOTRANSFERASE 16 U/L (15-37); BILIRUBIN,TOTAL 0.3 mg/dL (0.1-1.0); CALCIUM, TOTAL 8.8 mg/dL (8.8-10.5); CARBON DIOXIDE 29 mmol/L (22-29); CHLORIDE 107 mmol/L (98-107); CHOL/HDL RATIO 5.6 (4.2-7.3); CHOLESTEROL 111 mg/dL (131-200); CREATININE 0.85 mg/dL (0.60-1.30); FREE T4 (FREE THYROXINE) 1.05 ng/dL (0.76-1.46); GLOMERULAR FILTR. RATE CALC > 60 mL/min (>60); GLUCOSE,RANDOM 82 mg/dL (70-110); HDL CHOLESTEROL 20 mg/dL (40-60); LDL CHOL (CALC.) 52 mg/dL (0-130); POTASSIUM 4.1 mmol/L (3.5-5.1); SODIUM SERUM 143 mmol/L (136-145); THYROID STIMULATING HORMONE 1.42 uIU/mL (0.36-3.74); TOTAL PROTEIN, SERUM 6.7 g/dL (6.4-8.2); TRIGLYCERIDES 196 mg/dL (15-150); UREA NITROGEN, BLOOD 13 mg/dL (7-18)
[2020-11-02] MEDS: OMEPRAZOLE 20 MG CAPSULE PO SCH (10:05)
[2020-11-02] MEDS: AmLODIPine BESYLATE 5 MG TABLET PO SCH (10:05)
[2020-11-02] MEDS: OLANZapine 10 MG TABLET PO SCH ×2 (10:05→20:30)
[2020-11-02] MEDS: DIVALPROEX SODIUM 500 MG ER TABLET PO SCH ×2 (10:06→20:30)
[2020-11-02] MEDS: LORazepam 2 MG TABLET PO PRN (14:18)
[2020-11-02 16:13] VITALS: BP 125/81
[2020-11-02] MEDS: HALOPERIDOL 5 MG TABLET PO PRN (18:03)
[2020-11-03 01:53] VITALS: BP 108/70
[2020-11-03] MEDS: LORazepam 2 MG TABLET PO PRN ×2 (02:08→08:47)
[2020-11-03 08:20] VITALS: BP 117/78
[2020-11-03] MEDS: AmLODIPine BESYLATE 5 MG TABLET PO SCH (08:47)
[2020-11-03] MEDS: DIVALPROEX SODIUM 500 MG ER TABLET PO SCH ×2 (08:47→20:19)
[2020-11-03] MEDS: OMEPRAZOLE 20 MG CAPSULE PO SCH (08:47)
[2020-11-03] MEDS: OLANZapine 10 MG TABLET PO SCH ×2 (08:47→20:20)
[2020-11-03 16:10] VITALS: BP 119/76
[2020-11-03] MEDS ORDERED: FAMOTIDINE 20 MG TABLET PO ONE (16:15)
[2020-11-03] MEDS ORDERED: DiphenhydrAMINE HCL 25 MG CAPSULE PO ONE (16:15)
[2020-11-03] MEDS ORDERED: OLAN7.5T2 PO (16:24)
[2020-11-03] MEDS ORDERED: PredniSONE 10 MG TABLET PO ONE (16:30)
[2020-11-03] MEDS: HALOPERIDOL 5 MG TABLET PO PRN (17:44)
[2020-11-04 00:31] VITALS: BP 111/78
[2020-11-04 08:05] LABS: COVID AG,FIA SOURCE NASAL SWAB
[2020-11-04 08:16] VITALS: BP 140/69
[2020-11-04] MEDS: AmLODIPine BESYLATE 5 MG TABLET PO SCH (08:19)
[2020-11-04] MEDS: OMEPRAZOLE 20 MG CAPSULE PO SCH (08:19)
[2020-11-04] MEDS: DIVALPROEX SODIUM 500 MG ER TABLET PO SCH ×2 (08:19→20:48)
[2020-11-04] MEDS: OLANZapine 10 MG TABLET PO SCH ×2 (08:19→20:48)
[2020-11-04] MEDS: HALOPERIDOL 5 MG TABLET PO PRN (10:28)
[2020-11-04] MEDS: LORazepam 2 MG TABLET PO PRN (10:28)
[2020-11-04 16:21] VITALS: BP 109/63
[2020-11-05 00:52] VITALS: BP 113/75
[2020-11-05 08:13] VITALS: BP 131/82
[2020-11-05] MEDS: AmLODIPine BESYLATE 5 MG TABLET PO SCH (08:47)
[2020-11-05] MEDS: OMEPRAZOLE 20 MG CAPSULE PO SCH (08:47)
[2020-11-05] MEDS: LORazepam 2 MG TABLET PO PRN ×2 (08:47→16:39)
[2020-11-05] MEDS: OLANZapine 10 MG TABLET PO SCH ×2 (08:47→20:21)
[2020-11-05] MEDS: DIVALPROEX SODIUM 500 MG ER TABLET PO SCH ×2 (08:47→20:21)
[2020-11-05 17:23] VITALS: BP 133/70
[2020-11-06 05:32] VITALS: BP 120/72
[2020-11-06] MEDS: AmLODIPine BESYLATE 5 MG TABLET PO SCH (08:12)
[2020-11-06] MEDS: OMEPRAZOLE 20 MG CAPSULE PO SCH (08:12)
[2020-11-06] MEDS: DIVALPROEX SODIUM 500 MG ER TABLET PO SCH ×2 (08:13→20:02)
[2020-11-06] MEDS: OLANZapine 10 MG TABLET PO SCH ×2 (08:13→20:02)
[2020-11-06 08:22] VITALS: BP 117/74
[2020-11-06] MEDS: LORazepam 2 MG TABLET PO PRN (12:13)
[2020-11-06] MEDS: HALOPERIDOL 5 MG TABLET PO PRN (12:13)
[2020-11-06 16:09] VITALS: BP 142/80
[2020-11-06] MEDS: TraZODone HCL 50 MG TABLET PO SCH (20:02)
[2020-11-07 06:33] VITALS: BP 119/79
[2020-11-07] MEDS: DIVALPROEX SODIUM 500 MG ER TABLET PO SCH ×2 (08:03→20:15)
[2020-11-07] MEDS: OLANZapine 10 MG TABLET PO SCH ×2 (08:03→20:15)
[2020-11-07] MEDS: OMEPRAZOLE 20 MG CAPSULE PO SCH (08:03)
[2020-11-07] MEDS: LORazepam 2 MG TABLET PO PRN ×2 (08:04→14:27)
[2020-11-07] MEDS: AmLODIPine BESYLATE 5 MG TABLET PO SCH (08:04)
[2020-11-07 08:19] VITALS: BP 123/78
[2020-11-07] MEDS: IBUPROFEN 400 MG TABLET PO PRN (10:44)
[2020-11-07] MEDS: HALOPERIDOL 5 MG TABLET PO PRN (14:27)
[2020-11-07 16:09] VITALS: BP 126/74
[2020-11-07] MEDS: TraZODone HCL 50 MG TABLET PO SCH (20:15)
[2020-11-08 00:50] VITALS: BP 111/82
[2020-11-08] MEDS: OLANZapine 10 MG TABLET PO SCH ×2 (08:11→20:26)
[2020-11-08] MEDS: DIVALPROEX SODIUM 500 MG ER TABLET PO SCH ×2 (08:11→20:26)
[2020-11-08] MEDS: LORazepam 2 MG TABLET PO PRN (08:11)
[2020-11-08] MEDS: AmLODIPine BESYLATE 5 MG TABLET PO SCH (08:11)
[2020-11-08] MEDS: OMEPRAZOLE 20 MG CAPSULE PO SCH (08:11)
[2020-11-08 08:25] VITALS: BP 122/74
[2020-11-08 16:24] VITALS: BP 124/81
[2020-11-08] MEDS: TraZODone HCL 50 MG TABLET PO SCH (20:26)
[2020-11-09 00:32] VITALS: BP 132/80
[2020-11-09] MEDS: OLANZapine 10 MG TABLET PO SCH ×2 (08:15→20:29)
[2020-11-09] MEDS: DIVALPROEX SODIUM 500 MG ER TABLET PO SCH ×2 (08:15→20:29)
[2020-11-09] MEDS: AmLODIPine BESYLATE 5 MG TABLET PO SCH (08:15)
[2020-11-09] MEDS: OMEPRAZOLE 20 MG CAPSULE PO SCH (08:15)
[2020-11-09 08:23] VITALS: BP 124/77
[2020-11-09] MEDS: IBUPROFEN 400 MG TABLET PO PRN (09:49)
[2020-11-09 16:14] VITALS: BP 121/74
[2020-11-09] MEDS: LORazepam 2 MG TABLET PO PRN (17:07)
[2020-11-09] MEDS: TraZODone HCL 50 MG TABLET PO SCH (20:29)
[2020-11-10 00:26] VITALS: BP 123/69
[2020-11-10 08:34] VITALS: BP 126/78
[2020-11-10] MEDS: OLANZapine 10 MG TABLET PO SCH ×2 (09:30→20:34)
[2020-11-10] MEDS: OMEPRAZOLE 20 MG CAPSULE PO SCH (09:30)
[2020-11-10] MEDS: DIVALPROEX SODIUM 500 MG ER TABLET PO SCH ×2 (09:30→20:35)
[2020-11-10] MEDS: HALOPERIDOL 5 MG TABLET PO PRN (09:33)
[2020-11-10] MEDS: LORazepam 2 MG TABLET PO PRN (09:33)
[2020-11-10] MEDS: AmLODIPine BESYLATE 5 MG TABLET PO SCH (09:34)
[2020-11-10 16:37] VITALS: BP 112/61
[2020-11-10] MEDS: TraZODone HCL 50 MG TABLET PO SCH (20:35)
[2020-11-11 00:58] VITALS: BP 123/77
[2020-11-11 08:11] VITALS: BP 114/57
[2020-11-11] MEDS: DIVALPROEX SODIUM 500 MG ER TABLET PO SCH ×2 (09:01→20:39)
[2020-11-11] MEDS: AmLODIPine BESYLATE 5 MG TABLET PO SCH (09:02)
[2020-11-11] MEDS: OLANZapine 10 MG TABLET PO SCH ×2 (09:02→20:39)
[2020-11-11] MEDS: OMEPRAZOLE 20 MG CAPSULE PO SCH (09:02)
[2020-11-11] MEDS: LORazepam 2 MG TABLET PO PRN (15:53)
[2020-11-11] MEDS: HALOPERIDOL 5 MG TABLET PO PRN (15:53)
[2020-11-11] MEDS: IBUPROFEN 400 MG TABLET PO PRN (15:53)
[2020-11-11 16:09] VITALS: BP 133/88
[2020-11-11] MEDS: TraZODone HCL 50 MG TABLET PO SCH (20:39)
[2020-11-12 06:20] VITALS: BP 128/82
[2020-11-12 08:24] VITALS: BP 137/96
[2020-11-12 09:34] LABS: COVID AG,FIA SOURCE NASOPHARYNGEAL
[2020-11-12] MEDS: OLANZapine 10 MG TABLET PO SCH ×2 (09:48→21:04)
[2020-11-12] MEDS: DIVALPROEX SODIUM 500 MG ER TABLET PO SCH ×2 (09:48→21:04)
[2020-11-12] MEDS: OMEPRAZOLE 20 MG CAPSULE PO SCH (09:49)
[2020-11-12] MEDS: AmLODIPine BESYLATE 5 MG TABLET PO SCH (09:49)
[2020-11-12] MEDS: HALOPERIDOL 5 MG TABLET PO PRN (12:29)
[2020-11-12] MEDS: LORazepam 2 MG TABLET PO PRN (12:29)
[2020-11-12 16:13] VITALS: BP 100/61
[2020-11-12] MEDS: TraZODone HCL 50 MG TABLET PO SCH (21:05)
[2020-11-13 06:09] VITALS: BP 114/69
[2020-11-13 08:06] VITALS: BP 131/78
[2020-11-13] MEDS: OLANZapine 10 MG TABLET PO SCH ×2 (10:46→20:41)
[2020-11-13] MEDS: OMEGA-3/DHA/EPA/FISH OIL 1,000 MG CAPSULE PO SCH (10:47)
[2020-11-13] MEDS: OMEPRAZOLE 20 MG CAPSULE PO SCH (10:47)
[2020-11-13] MEDS: MULTIVITAMINS WITH MINERALS, THERAPEUTIC TABLET PO SCH (10:47)
[2020-11-13] MEDS: DIVALPROEX SODIUM 500 MG ER TABLET PO SCH ×2 (10:47→20:41)
[2020-11-13] MEDS: AmLODIPine BESYLATE 5 MG TABLET PO SCH (10:48)
[2020-11-13 16:07] VITALS: BP 137/90
[2020-11-13] MEDS: LORazepam 2 MG TABLET PO PRN (17:39)
[2020-11-13] MEDS: HALOPERIDOL 5 MG TABLET PO PRN (17:39)
[2020-11-13] MEDS: IBUPROFEN 400 MG TABLET PO PRN (17:39)
[2020-11-13] MEDS: TraZODone HCL 50 MG TABLET PO SCH (20:41)
[2020-11-14 06:45] VITALS: BP 132/69
[2020-11-14 08:17] VITALS: BP 119/72
[2020-11-14] MEDS: OMEGA-3/DHA/EPA/FISH OIL 1,000 MG CAPSULE PO SCH (08:45)
[2020-11-14] MEDS: OLANZapine 10 MG TABLET PO SCH ×2 (08:45→20:20)
[2020-11-14] MEDS: DIVALPROEX SODIUM 500 MG ER TABLET PO SCH ×2 (08:46→20:20)
[2020-11-14] MEDS: OMEPRAZOLE 20 MG CAPSULE PO SCH (08:46)
[2020-11-14] MEDS: MULTIVITAMINS WITH MINERALS, THERAPEUTIC TABLET PO SCH (08:46)
[2020-11-14] MEDS: AmLODIPine BESYLATE 5 MG TABLET PO SCH (08:46)
[2020-11-14] MEDS: LORazepam 2 MG TABLET PO PRN (08:46)
[2020-11-14] MEDS: IBUPROFEN 400 MG TABLET PO PRN (16:03)
[2020-11-14 16:15] VITALS: BP 115/76
[2020-11-14] MEDS: TraZODone HCL 50 MG TABLET PO SCH (20:19)
[2020-11-15 00:47] VITALS: BP 130/82
[2020-11-15] MEDS: OMEPRAZOLE 20 MG CAPSULE PO SCH (08:24)
[2020-11-15] MEDS: MULTIVITAMINS WITH MINERALS, THERAPEUTIC TABLET PO SCH (08:24)
[2020-11-15] MEDS: DIVALPROEX SODIUM 500 MG ER TABLET PO SCH ×2 (08:24→20:09)
[2020-11-15] MEDS: AmLODIPine BESYLATE 5 MG TABLET PO SCH (08:24)
[2020-11-15] MEDS: OLANZapine 10 MG TABLET PO SCH ×2 (08:24→20:11)
[2020-11-15] MEDS: OMEGA-3/DHA/EPA/FISH OIL 1,000 MG CAPSULE PO SCH (08:24)
[2020-11-15 08:53] VITALS: BP 122/73
[2020-11-15] MEDS ORDERED: MAG HYDROX/AL HYDROX/SIMETH ES 30 ML SUSPENSION UDCUP PO PRN (12:00)
[2020-11-15] MEDS: LORazepam 2 MG TABLET PO PRN (15:30)
[2020-11-15] MEDS: HALOPERIDOL 5 MG TABLET PO PRN (15:30)
[2020-11-15 17:27] VITALS: BP 138/90
[2020-11-15] MEDS: TraZODone HCL 50 MG TABLET PO SCH (20:09)
[2020-11-16 00:42] VITALS: BP 125/76
[2020-11-16 08:35] VITALS: BP 133/74
[2020-11-16] MEDS: DIVALPROEX SODIUM 500 MG ER TABLET PO SCH ×2 (09:20→20:45)
[2020-11-16] MEDS: OMEPRAZOLE 20 MG CAPSULE PO SCH (09:20)
[2020-11-16] MEDS: OMEGA-3/DHA/EPA/FISH OIL 1,000 MG CAPSULE PO SCH (09:20)
[2020-11-16] MEDS: MULTIVITAMINS WITH MINERALS, THERAPEUTIC TABLET PO SCH (09:20)
[2020-11-16] MEDS: OLANZapine 10 MG TABLET PO SCH ×2 (09:20→20:45)
[2020-11-16] MEDS: AmLODIPine BESYLATE 5 MG TABLET PO SCH (09:48)
[2020-11-16 16:47] VITALS: BP 108/66
[2020-11-16] MEDS: TraZODone HCL 50 MG TABLET PO SCH (20:45)
[2020-11-17 00:40] VITALS: BP 118/77
[2020-11-17 08:27] VITALS: BP 135/87
[2020-11-17] MEDS: DIVALPROEX SODIUM 500 MG ER TABLET PO SCH ×2 (10:09→20:37)
[2020-11-17] MEDS: OMEPRAZOLE 20 MG CAPSULE PO SCH (10:09)
[2020-11-17] MEDS: AmLODIPine BESYLATE 5 MG TABLET PO SCH (10:10)
[2020-11-17] MEDS: OLANZapine 10 MG TABLET PO SCH ×2 (10:10→20:37)
[2020-11-17] MEDS: MULTIVITAMINS WITH MINERALS, THERAPEUTIC TABLET PO SCH (10:10)
[2020-11-17] MEDS: OMEGA-3/DHA/EPA/FISH OIL 1,000 MG CAPSULE PO SCH (10:11)
[2020-11-17 16:13] VITALS: BP 135/96
[2020-11-17] MEDS: LORazepam 2 MG TABLET PO PRN (16:16)
[2020-11-17] MEDS: HALOPERIDOL 5 MG TABLET PO PRN (16:16)
[2020-11-17] MEDS: TraZODone HCL 50 MG TABLET PO SCH (20:37)
[2020-11-18 01:37] VITALS: BP 122/72
[2020-11-18 08:18] VITALS: BP 124/78
[2020-11-18] MEDS: OLANZapine 10 MG TABLET PO SCH ×2 (09:55→20:51)
[2020-11-18] MEDS: OMEPRAZOLE 20 MG CAPSULE PO SCH (09:55)
[2020-11-18] MEDS: MULTIVITAMINS WITH MINERALS, THERAPEUTIC TABLET PO SCH (09:56)
[2020-11-18] MEDS: HALOPERIDOL 5 MG TABLET PO PRN (09:56)
[2020-11-18] MEDS: DIVALPROEX SODIUM 500 MG ER TABLET PO SCH ×2 (09:56→20:50)
[2020-11-18] MEDS: AmLODIPine BESYLATE 5 MG TABLET PO SCH (09:56)
[2020-11-18] MEDS: OMEGA-3/DHA/EPA/FISH OIL 1,000 MG CAPSULE PO SCH (09:56)
[2020-11-18] MEDS: LORazepam 2 MG TABLET PO PRN (09:56)
[2020-11-18 16:07] VITALS: BP 124/79
[2020-11-18] MEDS: TraZODone HCL 50 MG TABLET PO SCH (20:51)
[2020-11-19 06:35] VITALS: BP 108/64
[2020-11-19 08:10] VITALS: BP 137/86
[2020-11-19 08:34] LABS: COVID AG,FIA SOURCE NASAL SWAB
[2020-11-19] MEDS: LORazepam 2 MG TABLET PO PRN (09:32)
[2020-11-19] MEDS: MULTIVITAMINS WITH MINERALS, THERAPEUTIC TABLET PO SCH (09:32)
[2020-11-19] MEDS: OMEPRAZOLE 20 MG CAPSULE PO SCH (09:32)
[2020-11-19] MEDS: HALOPERIDOL 5 MG TABLET PO PRN (09:32)
[2020-11-19] MEDS: AmLODIPine BESYLATE 5 MG TABLET PO SCH (09:32)
[2020-11-19] MEDS: DIVALPROEX SODIUM 500 MG ER TABLET PO SCH ×2 (09:32→20:35)
[2020-11-19] MEDS: OLANZapine 10 MG TABLET PO SCH ×2 (09:32→20:35)
[2020-11-19] MEDS: OMEGA-3/DHA/EPA/FISH OIL 1,000 MG CAPSULE PO SCH (09:33)
[2020-11-19 16:03] VITALS: BP 140/89
[2020-11-19] MEDS: IBUPROFEN 400 MG TABLET PO PRN (16:33)
[2020-11-19] MEDS: TraZODone HCL 50 MG TABLET PO SCH (20:35)
[2020-11-20 05:14] VITALS: BP 128/88
[2020-11-20 08:27] VITALS: BP 117/74
[2020-11-20] MEDS: MULTIVITAMINS WITH MINERALS, THERAPEUTIC TABLET PO SCH (08:45)
[2020-11-20] MEDS: DIVALPROEX SODIUM 500 MG ER TABLET PO SCH ×2 (08:45→21:14)
[2020-11-20] MEDS: OMEGA-3/DHA/EPA/FISH OIL 1,000 MG CAPSULE PO SCH (08:45)
[2020-11-20] MEDS: OLANZapine 10 MG TABLET PO SCH ×2 (08:45→21:14)
[2020-11-20] MEDS: AmLODIPine BESYLATE 5 MG TABLET PO SCH (08:45)
[2020-11-20] MEDS: LORazepam 2 MG TABLET PO PRN (08:46)
[2020-11-20] MEDS: OMEPRAZOLE 20 MG CAPSULE PO SCH (08:46)
[2020-11-20] MEDS: HALOPERIDOL 5 MG TABLET PO PRN (08:46)
[2020-11-20 16:05] VITALS: BP 117/67
[2020-11-20] MEDS: TraZODone HCL 50 MG TABLET PO SCH (21:14)
[2020-11-21 06:31] VITALS: BP 106/63
[2020-11-21 08:13] VITALS: BP 145/87
[2020-11-21] MEDS: OMEPRAZOLE 20 MG CAPSULE PO SCH (09:26)
[2020-11-21] MEDS: DIVALPROEX SODIUM 500 MG ER TABLET PO SCH ×2 (09:26→20:37)
[2020-11-21] MEDS: AmLODIPine BESYLATE 5 MG TABLET PO SCH (09:27)
[2020-11-21] MEDS: OMEGA-3/DHA/EPA/FISH OIL 1,000 MG CAPSULE PO SCH (09:27)
[2020-11-21] MEDS: OLANZapine 10 MG TABLET PO SCH ×2 (09:27→20:37)
[2020-11-21] MEDS: MULTIVITAMINS WITH MINERALS, THERAPEUTIC TABLET PO SCH (09:27)
[2020-11-21] MEDS: HALOPERIDOL 5 MG TABLET PO PRN (14:26)
[2020-11-21] MEDS: LORazepam 2 MG TABLET PO PRN (14:26)
[2020-11-21 16:08] VITALS: BP 125/85
[2020-11-21] MEDS: TraZODone HCL 50 MG TABLET PO SCH (20:37)
[2020-11-22 06:13] VITALS: BP 121/76
[2020-11-22 08:18] VITALS: BP 125/79
[2020-11-22] MEDS: OMEGA-3/DHA/EPA/FISH OIL 1,000 MG CAPSULE PO SCH (09:14)
[2020-11-22] MEDS: MULTIVITAMINS WITH MINERALS, THERAPEUTIC TABLET PO SCH (09:14)
[2020-11-22] MEDS: AmLODIPine BESYLATE 5 MG TABLET PO SCH (09:14)
[2020-11-22] MEDS: LORazepam 2 MG TABLET PO PRN (09:14)
[2020-11-22] MEDS: OMEPRAZOLE 20 MG CAPSULE PO SCH (09:14)
[2020-11-22] MEDS: DIVALPROEX SODIUM 500 MG ER TABLET PO SCH ×2 (09:14→20:35)
[2020-11-22] MEDS: OLANZapine 10 MG TABLET PO SCH ×2 (09:14→20:35)
[2020-11-22] MEDS: HALOPERIDOL 5 MG TABLET PO PRN (09:15)
[2020-11-22 16:17] VITALS: BP 108/67
[2020-11-22] MEDS: TraZODone HCL 50 MG TABLET PO SCH (20:35)
[2020-11-23 06:18] VITALS: BP 117/66
[2020-11-23] MEDS: OLANZapine 10 MG TABLET PO SCH ×2 (08:31→21:11)
[2020-11-23] MEDS: OMEPRAZOLE 20 MG CAPSULE PO SCH (08:31)
[2020-11-23] MEDS: DIVALPROEX SODIUM 500 MG ER TABLET PO SCH ×2 (08:31→21:11)
[2020-11-23] MEDS: MULTIVITAMINS WITH MINERALS, THERAPEUTIC TABLET PO SCH (08:31)
[2020-11-23] MEDS: OMEGA-3/DHA/EPA/FISH OIL 1,000 MG CAPSULE PO SCH (08:31)
[2020-11-23] MEDS: AmLODIPine BESYLATE 5 MG TABLET PO SCH (08:32)
[2020-11-23 08:33] VITALS: BP 126/70
[2020-11-23] MEDS: LORazepam 2 MG TABLET PO PRN (12:06)
[2020-11-23] MEDS: HALOPERIDOL 5 MG TABLET PO PRN (12:17)
[2020-11-23 16:45] VITALS: BP 111/73
[2020-11-23] MEDS: TraZODone HCL 50 MG TABLET PO SCH (21:10)
[2020-11-23] MEDS: IBUPROFEN 400 MG TABLET PO PRN (21:11)
[2020-11-24 00:55] VITALS: BP 110/75
[2020-11-24] MEDS: OMEPRAZOLE 20 MG CAPSULE PO SCH (08:34)
[2020-11-24] MEDS: DIVALPROEX SODIUM 500 MG ER TABLET PO SCH ×2 (08:34→20:18)
[2020-11-24] MEDS: MULTIVITAMINS WITH MINERALS, THERAPEUTIC TABLET PO SCH (08:34)
[2020-11-24] MEDS: AmLODIPine BESYLATE 5 MG TABLET PO SCH (08:34)
[2020-11-24] MEDS: OMEGA-3/DHA/EPA/FISH OIL 1,000 MG CAPSULE PO SCH (08:34)
[2020-11-24] MEDS: OLANZapine 10 MG TABLET PO SCH ×2 (08:37→20:15)
[2020-11-24 08:39] VITALS: BP 124/74
[2020-11-24 16:08] VITALS: BP 110/70
[2020-11-24] MEDS: LORazepam 2 MG TABLET PO PRN (16:43)
[2020-11-24] MEDS: HALOPERIDOL 5 MG TABLET PO PRN (16:43)
[2020-11-24] MEDS: TraZODone HCL 50 MG TABLET PO SCH (20:18)
[2020-11-25 01:26] VITALS: BP 121/72
[2020-11-25 08:11] VITALS: BP 118/75
[2020-11-25] MEDS: OLANZapine 10 MG TABLET PO SCH ×2 (09:04→20:50)
[2020-11-25] MEDS: DIVALPROEX SODIUM 500 MG ER TABLET PO SCH ×2 (09:05→20:50)
[2020-11-25] MEDS: HALOPERIDOL 5 MG TABLET PO PRN (09:05)
[2020-11-25] MEDS: AmLODIPine BESYLATE 5 MG TABLET PO SCH (09:05)
[2020-11-25] MEDS: LORazepam 2 MG TABLET PO PRN (09:05)
[2020-11-25] MEDS: OMEPRAZOLE 20 MG CAPSULE PO SCH (09:05)
[2020-11-25] MEDS: MULTIVITAMINS WITH MINERALS, THERAPEUTIC TABLET PO SCH (09:05)
[2020-11-25] MEDS: OMEGA-3/DHA/EPA/FISH OIL 1,000 MG CAPSULE PO SCH (09:05)
[2020-11-25 16:30] VITALS: BP 121/63
[2020-11-25] MEDS: TraZODone HCL 50 MG TABLET PO SCH (20:50)
[2020-11-26 00:16] VITALS: BP 118/62
[2020-11-26 08:13] VITALS: BP 116/69
[2020-11-26] MEDS: OLANZapine 10 MG TABLET PO SCH ×2 (09:14→20:22)
[2020-11-26] MEDS: MULTIVITAMINS WITH MINERALS, THERAPEUTIC TABLET PO SCH (09:14)
[2020-11-26] MEDS: OMEGA-3/DHA/EPA/FISH OIL 1,000 MG CAPSULE PO SCH (09:14)
[2020-11-26] MEDS: AmLODIPine BESYLATE 5 MG TABLET PO SCH (09:14)
[2020-11-26] MEDS: HALOPERIDOL 5 MG TABLET PO PRN ×2 (09:14→17:53)
[2020-11-26] MEDS: DIVALPROEX SODIUM 500 MG ER TABLET PO SCH ×2 (09:14→20:22)
[2020-11-26] MEDS: LORazepam 2 MG TABLET PO PRN ×2 (09:14→17:53)
[2020-11-26] MEDS: OMEPRAZOLE 20 MG CAPSULE PO SCH (09:15)
[2020-11-26 13:10] LABS: COVID AG,FIA SOURCE NASOPHARYNGEAL
[2020-11-26 16:29] VITALS: BP 120/64
[2020-11-26] MEDS: TraZODone HCL 50 MG TABLET PO SCH (20:22)
[2020-11-27 05:51] VITALS: BP 119/74
[2020-11-27 08:39] VITALS: BP 125/81
[2020-11-27] MEDS: LORazepam 2 MG TABLET PO PRN ×2 (08:40→15:59)
[2020-11-27] MEDS: OMEPRAZOLE 20 MG CAPSULE PO SCH (08:40)
[2020-11-27] MEDS: MULTIVITAMINS WITH MINERALS, THERAPEUTIC TABLET PO SCH (08:40)
[2020-11-27] MEDS: DIVALPROEX SODIUM 500 MG ER TABLET PO SCH ×2 (08:40→20:30)
[2020-11-27] MEDS: OMEGA-3/DHA/EPA/FISH OIL 1,000 MG CAPSULE PO SCH (08:40)
[2020-11-27] MEDS: AmLODIPine BESYLATE 5 MG TABLET PO SCH (08:40)
[2020-11-27] MEDS: OLANZapine 10 MG TABLET PO SCH ×2 (08:40→20:30)
[2020-11-27] MEDS: HALOPERIDOL 5 MG TABLET PO PRN (15:59)
[2020-11-27 16:17] VITALS: BP 136/87
[2020-11-27] MEDS: TraZODone HCL 50 MG TABLET PO SCH (20:30)
[2020-11-28 04:50] VITALS: BP 130/80
[2020-11-28] MEDS: OMEPRAZOLE 20 MG CAPSULE PO SCH (08:16)
[2020-11-28] MEDS: AmLODIPine BESYLATE 5 MG TABLET PO SCH (08:16)
[2020-11-28] MEDS: DIVALPROEX SODIUM 500 MG ER TABLET PO SCH ×2 (08:16→20:13)
[2020-11-28] MEDS: OMEGA-3/DHA/EPA/FISH OIL 1,000 MG CAPSULE PO SCH (08:16)
[2020-11-28] MEDS: LORazepam 2 MG TABLET PO PRN (08:16)
[2020-11-28] MEDS: MULTIVITAMINS WITH MINERALS, THERAPEUTIC TABLET PO SCH (08:16)
[2020-11-28] MEDS: OLANZapine 10 MG TABLET PO SCH ×2 (08:16→20:13)
[2020-11-28 08:24] VITALS: BP 124/85
[2020-11-28 16:08] VITALS: BP 115/79
[2020-11-28] MEDS: IBUPROFEN 400 MG TABLET PO PRN (16:35)
[2020-11-28] MEDS: TraZODone HCL 50 MG TABLET PO SCH (20:13)
[2020-11-29 01:04] VITALS: BP 133/83
[2020-11-29] MEDS: LORazepam 2 MG TABLET PO PRN (05:24)
[2020-11-29] MEDS: HALOPERIDOL 5 MG TABLET PO PRN ×2 (05:24→18:50)
[2020-11-29] MEDS: AmLODIPine BESYLATE 5 MG TABLET PO SCH (08:20)
[2020-11-29] MEDS: OMEPRAZOLE 20 MG CAPSULE PO SCH (08:20)
[2020-11-29] MEDS: OLANZapine 10 MG TABLET PO SCH ×2 (08:20→20:27)
[2020-11-29] MEDS: OMEGA-3/DHA/EPA/FISH OIL 1,000 MG CAPSULE PO SCH (08:20)
[2020-11-29] MEDS: MULTIVITAMINS WITH MINERALS, THERAPEUTIC TABLET PO SCH (08:20)
[2020-11-29] MEDS: DIVALPROEX SODIUM 500 MG ER TABLET PO SCH ×2 (08:20→20:27)
[2020-11-29 08:27] VITALS: BP 118/69
[2020-11-29 17:35] VITALS: BP 125/77
[2020-11-29] MEDS: IBUPROFEN 400 MG TABLET PO PRN (17:42)
[2020-11-29 17:49] VITALS: BP 127/74
[2020-11-29] MEDS: TraZODone HCL 50 MG TABLET PO SCH (20:27)
[2020-11-30 00:24] VITALS: BP 128/78
[2020-11-30 08:08] VITALS: BP 131/91
[2020-11-30] MEDS: DIVALPROEX SODIUM 500 MG ER TABLET PO SCH ×2 (09:18→20:26)
[2020-11-30] MEDS: AmLODIPine BESYLATE 5 MG TABLET PO SCH (09:19)
[2020-11-30] MEDS: MULTIVITAMINS WITH MINERALS, THERAPEUTIC TABLET PO SCH (09:19)
[2020-11-30] MEDS: OLANZapine 10 MG TABLET PO SCH ×2 (09:19→20:26)
[2020-11-30] MEDS: OMEPRAZOLE 20 MG CAPSULE PO SCH (09:19)
[2020-11-30] MEDS: OMEGA-3/DHA/EPA/FISH OIL 1,000 MG CAPSULE PO SCH (09:19)
[2020-11-30] MEDS: HALOPERIDOL 5 MG TABLET PO PRN (15:46)
[2020-11-30 16:17] VITALS: BP 136/97
[2020-11-30] MEDS: NICOTINE POLACRILEX 2 MG LOZENGE PO PRN (16:19)
[2020-11-30] MEDS: IBUPROFEN 400 MG TABLET PO PRN (19:01)
[2020-11-30] MEDS: TraZODone HCL 50 MG TABLET PO SCH (20:26)
[2020-12-01 05:39] VITALS: BP 113/85
[2020-12-01] MEDS: OMEGA-3/DHA/EPA/FISH OIL 1,000 MG CAPSULE PO SCH (08:35)
[2020-12-01] MEDS: DIVALPROEX SODIUM 500 MG ER TABLET PO SCH ×2 (08:35→20:04)
[2020-12-01] MEDS: AmLODIPine BESYLATE 5 MG TABLET PO SCH (08:35)
[2020-12-01] MEDS: OLANZapine 10 MG TABLET PO SCH ×2 (08:35→20:04)
[2020-12-01] MEDS: MULTIVITAMINS WITH MINERALS, THERAPEUTIC TABLET PO SCH (08:35)
[2020-12-01] MEDS: OMEPRAZOLE 20 MG CAPSULE PO SCH (08:35)
[2020-12-01 08:41] VITALS: BP 142/81
[2020-12-01 16:13] VITALS: BP 144/70
[2020-12-01] MEDS: NICOTINE POLACRILEX 2 MG LOZENGE PO PRN (16:26)
[2020-12-01] MEDS: IBUPROFEN 400 MG TABLET PO PRN (16:26)
[2020-12-01] MEDS: HALOPERIDOL 5 MG TABLET PO PRN (16:26)
[2020-12-01] MEDS: TraZODone HCL 50 MG TABLET PO SCH (20:04)
[2020-12-02 00:11] VITALS: BP 128/75
[2020-12-02] MEDS: DIVALPROEX SODIUM 500 MG ER TABLET PO SCH ×2 (08:01→20:36)
[2020-12-02] MEDS: AmLODIPine BESYLATE 5 MG TABLET PO SCH (08:01)
[2020-12-02] MEDS: MULTIVITAMINS WITH MINERALS, THERAPEUTIC TABLET PO SCH (08:01)
[2020-12-02] MEDS: OMEGA-3/DHA/EPA/FISH OIL 1,000 MG CAPSULE PO SCH (08:01)
[2020-12-02] MEDS: OLANZapine 10 MG TABLET PO SCH ×2 (08:01→20:36)
[2020-12-02] MEDS: OMEPRAZOLE 20 MG CAPSULE PO SCH (08:01)
[2020-12-02 08:12] VITALS: BP 138/80
[2020-12-02 09:59] LABS: APPEARANCE,URINE CLEAR (CLEAR); BILIRUBIN,URINE NEGATIVE (NEGATIVE); GLUCOSE, URINE (UA) NEGATIVE (NEGATIVE); KETONES,URINE TRACE mg/dL (NEGATIVE); LEUKOCYTE ESTERASE ,URINE NEGATIVE (NEGATIVE); NITRATE,URINE NEGATIVE (NEGATIVE); OCCULT BLOOD,URINE NEGATIVE (NEGATIVE); PH,URINE 6.5 (5.0-8.0); PROTEIN,URINE NEGATIVE (NEGATIVE); UROBILINOGEN,URINE 0.2 mg/dL (<=1.0)
[2020-12-02] MEDS: HALOPERIDOL 5 MG TABLET PO PRN (10:34)
[2020-12-02] MEDS: IBUPROFEN 400 MG TABLET PO PRN (10:34)
[2020-12-02 16:41] VITALS: BP 139/79
[2020-12-02] MEDS: TraZODone HCL 50 MG TABLET PO SCH (20:36)
[2020-12-03] MEDS: IBUPROFEN 400 MG TABLET PO PRN ×2 (00:22→16:45)
[2020-12-03 08:10] VITALS: BP 119/75
[2020-12-03] MEDS: OLANZapine 10 MG TABLET PO SCH ×2 (08:41→20:15)
[2020-12-03] MEDS: AmLODIPine BESYLATE 5 MG TABLET PO SCH (08:41)
[2020-12-03] MEDS: MULTIVITAMINS WITH MINERALS, THERAPEUTIC TABLET PO SCH (08:41)
[2020-12-03] MEDS: OMEPRAZOLE 20 MG CAPSULE PO SCH (08:41)
[2020-12-03] MEDS: OMEGA-3/DHA/EPA/FISH OIL 1,000 MG CAPSULE PO SCH (08:41)
[2020-12-03] MEDS: DIVALPROEX SODIUM 500 MG ER TABLET PO SCH ×2 (08:42→20:15)
[2020-12-03 09:53] LABS: COVID AG,FIA SOURCE NASOPHARYNGEAL
[2020-12-03] MEDS: HALOPERIDOL 5 MG TABLET PO PRN ×2 (13:03→16:45)
[2020-12-03 16:24] VITALS: BP 137/78
[2020-12-03] MEDS: NICOTINE POLACRILEX 2 MG LOZENGE PO PRN (16:45)
[2020-12-03] MEDS: TraZODone HCL 50 MG TABLET PO SCH (20:15)
[2020-12-04 06:01] VITALS: BP 118/72
[2020-12-04 08:12] VITALS: BP 107/61
[2020-12-04] MEDS: MULTIVITAMINS WITH MINERALS, THERAPEUTIC TABLET PO SCH (08:19)
[2020-12-04] MEDS: OMEGA-3/DHA/EPA/FISH OIL 1,000 MG CAPSULE PO SCH (08:19)
[2020-12-04] MEDS: DIVALPROEX SODIUM 500 MG ER TABLET PO SCH ×2 (08:19→20:12)
[2020-12-04] MEDS: OLANZapine 10 MG TABLET PO SCH ×2 (08:19→20:12)
[2020-12-04] MEDS: AmLODIPine BESYLATE 5 MG TABLET PO SCH (08:19)
[2020-12-04] MEDS: OMEPRAZOLE 20 MG CAPSULE PO SCH (08:19)
[2020-12-04 09:24] LABS: APPEARANCE,URINE CLEAR (CLEAR); BILIRUBIN,URINE NEGATIVE (NEGATIVE); GLUCOSE, URINE (UA) NEGATIVE (NEGATIVE); KETONES,URINE NEGATIVE (NEGATIVE); LEUKOCYTE ESTERASE ,URINE NEGATIVE (NEGATIVE); NITRATE,URINE NEGATIVE (NEGATIVE); OCCULT BLOOD,URINE NEGATIVE (NEGATIVE); PH,URINE 7.5 (5.0-8.0); PROTEIN,URINE NEGATIVE (NEGATIVE); UROBILINOGEN,URINE 0.2 mg/dL (<=1.0)
[2020-12-04 09:25] LABS: BACTERIA,URINE None Seen /HPF (None Seen); RBC,URINE None Seen /HPF (0-2); WBC,URINE None Seen /HPF (0-5)
[2020-12-04] MEDS: HALOPERIDOL 5 MG TABLET PO PRN (16:09)
[2020-12-04 16:23] VITALS: BP 128/72
[2020-12-04] MEDS: TraZODone HCL 50 MG TABLET PO SCH (20:12)
[2020-12-05 00:40] VITALS: BP 106/62
[2020-12-05 08:14] VITALS: BP 129/64
[2020-12-05] MEDS: OMEPRAZOLE 20 MG CAPSULE PO SCH (08:17)
[2020-12-05] MEDS: MULTIVITAMINS WITH MINERALS, THERAPEUTIC TABLET PO SCH (08:17)
[2020-12-05] MEDS: OLANZapine 10 MG TABLET PO SCH ×2 (08:17→20:03)
[2020-12-05] MEDS: OMEGA-3/DHA/EPA/FISH OIL 1,000 MG CAPSULE PO SCH (08:17)
[2020-12-05] MEDS: AmLODIPine BESYLATE 5 MG TABLET PO SCH (08:17)
[2020-12-05] MEDS: DIVALPROEX SODIUM 500 MG ER TABLET PO SCH ×2 (08:17→20:03)
[2020-12-05] MEDS: HALOPERIDOL 5 MG TABLET PO PRN ×2 (10:46→18:07)
[2020-12-05 16:31] VITALS: BP 148/84
[2020-12-05 17:03] VITALS: BP 132/90
[2020-12-05] MEDS: TraZODone HCL 50 MG TABLET PO SCH (20:03)
[2020-12-06] MEDS: OMEPRAZOLE 20 MG CAPSULE PO SCH (08:25)
[2020-12-06] MEDS: OMEGA-3/DHA/EPA/FISH OIL 1,000 MG CAPSULE PO SCH (08:25)
[2020-12-06] MEDS: DIVALPROEX SODIUM 500 MG ER TABLET PO SCH ×2 (08:25→20:14)
[2020-12-06] MEDS: AmLODIPine BESYLATE 5 MG TABLET PO SCH (08:25)
[2020-12-06] MEDS: MULTIVITAMINS WITH MINERALS, THERAPEUTIC TABLET PO SCH (08:25)
[2020-12-06] MEDS: OLANZapine 10 MG TABLET PO SCH ×2 (08:25→20:15)
[2020-12-06 08:37] VITALS: BP 127/78
[2020-12-06 16:13] VITALS: BP 139/79
[2020-12-06] MEDS: HALOPERIDOL 5 MG TABLET PO PRN (16:17)
[2020-12-06] MEDS: IBUPROFEN 400 MG TABLET PO PRN (16:17)
[2020-12-06] MEDS: TraZODone HCL 50 MG TABLET PO SCH (20:14)
[2020-12-07 04:13] VITALS: BP 129/78
[2020-12-07] MEDS: OLANZapine 10 MG TABLET PO SCH ×2 (08:26→20:07)
[2020-12-07] MEDS: OMEPRAZOLE 20 MG CAPSULE PO SCH (08:26)
[2020-12-07] MEDS: AmLODIPine BESYLATE 5 MG TABLET PO SCH (08:26)
[2020-12-07] MEDS: DIVALPROEX SODIUM 500 MG ER TABLET PO SCH ×2 (08:26→20:07)
[2020-12-07] MEDS: MULTIVITAMINS WITH MINERALS, THERAPEUTIC TABLET PO SCH (08:26)
[2020-12-07] MEDS: OMEGA-3/DHA/EPA/FISH OIL 1,000 MG CAPSULE PO SCH (08:26)
[2020-12-07 08:40] VITALS: BP 122/65
[2020-12-07] MEDS: HALOPERIDOL 5 MG TABLET PO PRN (12:39)
[2020-12-07 17:45] VITALS: BP 133/85
[2020-12-07] MEDS: TraZODone HCL 50 MG TABLET PO SCH (20:07)
[2020-12-08 00:18] VITALS: BP 120/72
[2020-12-08 08:09] VITALS: BP 101/65
[2020-12-08] MEDS: OMEPRAZOLE 20 MG CAPSULE PO SCH (08:18)
[2020-12-08] MEDS: OMEGA-3/DHA/EPA/FISH OIL 1,000 MG CAPSULE PO SCH (08:18)
[2020-12-08] MEDS: OLANZapine 10 MG TABLET PO SCH ×2 (08:19→21:13)
[2020-12-08] MEDS: AmLODIPine BESYLATE 5 MG TABLET PO SCH (08:19)
[2020-12-08] MEDS: MULTIVITAMINS WITH MINERALS, THERAPEUTIC TABLET PO SCH (08:19)
[2020-12-08] MEDS: DIVALPROEX SODIUM 500 MG ER TABLET PO SCH ×2 (08:19→21:12)
[2020-12-08] MEDS: HALOPERIDOL 5 MG TABLET PO PRN (12:24)
[2020-12-08] MEDS: IBUPROFEN 400 MG TABLET PO PRN (15:44)
[2020-12-08 16:04] VITALS: BP 119/83
[2020-12-08] MEDS: TraZODone HCL 50 MG TABLET PO SCH (21:12)
[2020-12-09 00:29] VITALS: BP 119/65
[2020-12-09 08:05] VITALS: BP 104/60
[2020-12-09] MEDS: DIVALPROEX SODIUM 500 MG ER TABLET PO SCH ×2 (08:07→20:17)
[2020-12-09] MEDS: OLANZapine 10 MG TABLET PO SCH ×2 (08:07→20:17)
[2020-12-09] MEDS: AmLODIPine BESYLATE 5 MG TABLET PO SCH (08:07)
[2020-12-09] MEDS: OMEGA-3/DHA/EPA/FISH OIL 1,000 MG CAPSULE PO SCH (08:07)
[2020-12-09] MEDS: OMEPRAZOLE 20 MG CAPSULE PO SCH (08:07)
[2020-12-09] MEDS: MULTIVITAMINS WITH MINERALS, THERAPEUTIC TABLET PO SCH (08:07)
[2020-12-09] MEDS: HALOPERIDOL 5 MG TABLET PO PRN (13:44)
[2020-12-09] MEDS: IBUPROFEN 400 MG TABLET PO PRN (16:14)
[2020-12-09] MEDS: LORazepam 2 MG TABLET PO PRN (17:10)
[2020-12-09 17:18] VITALS: BP 136/82
[2020-12-09] MEDS: TraZODone HCL 50 MG TABLET PO SCH (20:17)
[2020-12-10 08:11] VITALS: BP 108/67
[2020-12-10] MEDS: OMEPRAZOLE 20 MG CAPSULE PO SCH (08:21)
[2020-12-10] MEDS: MULTIVITAMINS WITH MINERALS, THERAPEUTIC TABLET PO SCH (08:21)
[2020-12-10] MEDS: AmLODIPine BESYLATE 5 MG TABLET PO SCH (08:21)
[2020-12-10] MEDS: OLANZapine 10 MG TABLET PO SCH ×2 (08:21→20:17)
[2020-12-10] MEDS: DIVALPROEX SODIUM 500 MG ER TABLET PO SCH ×2 (08:21→20:17)
[2020-12-10] MEDS: LORazepam 2 MG TABLET PO PRN (08:21)
[2020-12-10] MEDS: OMEGA-3/DHA/EPA/FISH OIL 1,000 MG CAPSULE PO SCH (08:21)
[2020-12-10 09:17] LABS: COVID AG,FIA SOURCE NASOPHARYNGEAL
[2020-12-10 16:28] VITALS: BP 104/62
[2020-12-10] MEDS: TraZODone HCL 50 MG TABLET PO SCH (20:17)
[2020-12-11 00:33] VITALS: BP 108/64
[2020-12-11] MEDS: OMEPRAZOLE 20 MG CAPSULE PO SCH (08:19)
[2020-12-11] MEDS: DIVALPROEX SODIUM 500 MG ER TABLET PO SCH ×2 (08:19→20:03)
[2020-12-11] MEDS: MULTIVITAMINS WITH MINERALS, THERAPEUTIC TABLET PO SCH (08:19)
[2020-12-11] MEDS: LORazepam 2 MG TABLET PO PRN (08:19)
[2020-12-11] MEDS: AmLODIPine BESYLATE 5 MG TABLET PO SCH (08:19)
[2020-12-11] MEDS: OMEGA-3/DHA/EPA/FISH OIL 1,000 MG CAPSULE PO SCH (08:19)
[2020-12-11] MEDS: OLANZapine 10 MG TABLET PO SCH ×2 (08:20→20:03)
[2020-12-11 08:40] VITALS: BP 113/66
[2020-12-11 16:11] VITALS: BP 118/64
[2020-12-11] MEDS: TraZODone HCL 50 MG TABLET PO SCH (20:03)
[2020-12-12 03:15] VITALS: BP 129/88
[2020-12-12] MEDS: DIVALPROEX SODIUM 500 MG ER TABLET PO SCH ×2 (08:04→20:18)
[2020-12-12] MEDS: OMEGA-3/DHA/EPA/FISH OIL 1,000 MG CAPSULE PO SCH (08:04)
[2020-12-12] MEDS: OMEPRAZOLE 20 MG CAPSULE PO SCH (08:04)
[2020-12-12] MEDS: OLANZapine 10 MG TABLET PO SCH ×2 (08:04→20:18)
[2020-12-12] MEDS: MULTIVITAMINS WITH MINERALS, THERAPEUTIC TABLET PO SCH (08:04)
[2020-12-12] MEDS: AmLODIPine BESYLATE 5 MG TABLET PO SCH (08:05)
[2020-12-12 08:23] VITALS: BP 120/65
[2020-12-12] MEDS: IBUPROFEN 400 MG TABLET PO PRN (10:52)
[2020-12-12 16:13] VITALS: BP 136/65
[2020-12-12] MEDS: TraZODone HCL 50 MG TABLET PO SCH (20:18)
[2020-12-13 07:05] VITALS: BP 144/68
[2020-12-13 08:23] VITALS: BP 132/66
[2020-12-13] MEDS: OMEGA-3/DHA/EPA/FISH OIL 1,000 MG CAPSULE PO SCH (08:23)
[2020-12-13] MEDS: DIVALPROEX SODIUM 500 MG ER TABLET PO SCH ×2 (08:23→20:12)
[2020-12-13] MEDS: AmLODIPine BESYLATE 5 MG TABLET PO SCH (08:23)
[2020-12-13] MEDS: OLANZapine 10 MG TABLET PO SCH ×2 (08:23→20:11)
[2020-12-13] MEDS: MULTIVITAMINS WITH MINERALS, THERAPEUTIC TABLET PO SCH (08:23)
[2020-12-13] MEDS: OMEPRAZOLE 20 MG CAPSULE PO SCH (08:23)
[2020-12-13 16:14] VITALS: BP 145/91
[2020-12-13] MEDS: TraZODone HCL 50 MG TABLET PO SCH (20:11)
[2020-12-14 06:02] VITALS: BP 112/73
[2020-12-14 08:36] VITALS: BP 101/60
[2020-12-14] MEDS: OMEGA-3/DHA/EPA/FISH OIL 1,000 MG CAPSULE PO SCH (09:25)
[2020-12-14] MEDS: DIVALPROEX SODIUM 500 MG ER TABLET PO SCH ×2 (09:25→20:09)
[2020-12-14] MEDS: OMEPRAZOLE 20 MG CAPSULE PO SCH (09:25)
[2020-12-14] MEDS: AmLODIPine BESYLATE 5 MG TABLET PO SCH (09:26)
[2020-12-14] MEDS: MULTIVITAMINS WITH MINERALS, THERAPEUTIC TABLET PO SCH (09:26)
[2020-12-14] MEDS: OLANZapine 10 MG TABLET PO SCH ×2 (09:26→20:09)
[2020-12-14 16:16] VITALS: BP 140/86
[2020-12-14] MEDS: TraZODone HCL 50 MG TABLET PO SCH (20:09)
[2020-12-15 05:32] VITALS: BP 144/91
[2020-12-15] MEDS: OLANZapine 10 MG TABLET PO SCH ×2 (08:07→19:54)
[2020-12-15] MEDS: MULTIVITAMINS WITH MINERALS, THERAPEUTIC TABLET PO SCH (08:07)
[2020-12-15] MEDS: OMEGA-3/DHA/EPA/FISH OIL 1,000 MG CAPSULE PO SCH (08:07)
[2020-12-15] MEDS: AmLODIPine BESYLATE 5 MG TABLET PO SCH (08:07)
[2020-12-15] MEDS: DIVALPROEX SODIUM 500 MG ER TABLET PO SCH ×2 (08:07→19:54)
[2020-12-15] MEDS: OMEPRAZOLE 20 MG CAPSULE PO SCH (08:07)
[2020-12-15 08:14] VITALS: BP 129/87
[2020-12-15] MEDS: IBUPROFEN 400 MG TABLET PO PRN (16:26)
[2020-12-15] MEDS: NICOTINE POLACRILEX 2 MG LOZENGE PO PRN (16:27)
[2020-12-15 16:53] VITALS: BP 140/90
[2020-12-15] MEDS: TraZODone HCL 50 MG TABLET PO SCH (19:54)
[2020-12-16 01:06] VITALS: BP 120/74
[2020-12-16] MEDS: OLANZapine 10 MG TABLET PO SCH ×2 (08:08→21:17)
[2020-12-16] MEDS: AmLODIPine BESYLATE 5 MG TABLET PO SCH (08:08)
[2020-12-16] MEDS: OMEPRAZOLE 20 MG CAPSULE PO SCH (08:08)
[2020-12-16] MEDS: MULTIVITAMINS WITH MINERALS, THERAPEUTIC TABLET PO SCH (08:08)
[2020-12-16] MEDS: OMEGA-3/DHA/EPA/FISH OIL 1,000 MG CAPSULE PO SCH (08:08)
[2020-12-16] MEDS: DIVALPROEX SODIUM 500 MG ER TABLET PO SCH ×2 (08:11→21:14)
[2020-12-16 08:47] VITALS: BP 124/81
[2020-12-16 16:21] VITALS: BP 130/90
[2020-12-16] MEDS: TraZODone HCL 50 MG TABLET PO SCH (21:16)
[2020-12-17 05:24] VITALS: BP 127/88
[2020-12-17] MEDS: MULTIVITAMINS WITH MINERALS, THERAPEUTIC TABLET PO SCH (08:14)
[2020-12-17] MEDS: OMEGA-3/DHA/EPA/FISH OIL 1,000 MG CAPSULE PO SCH (08:14)
[2020-12-17] MEDS: OMEPRAZOLE 20 MG CAPSULE PO SCH (08:14)
[2020-12-17] MEDS: IBUPROFEN 400 MG TABLET PO PRN (08:14)
[2020-12-17] MEDS: DIVALPROEX SODIUM 500 MG ER TABLET PO SCH ×2 (08:14→20:18)
[2020-12-17] MEDS: OLANZapine 10 MG TABLET PO SCH ×2 (08:14→20:18)
[2020-12-17] MEDS: AmLODIPine BESYLATE 5 MG TABLET PO SCH (08:14)
[2020-12-17 08:17] VITALS: BP 117/58
[2020-12-17 08:44] LABS: COVID AG,FIA SOURCE NASOPHARYNGEAL
[2020-12-17 16:27] VITALS: BP 123/86
[2020-12-17] MEDS: NICOTINE POLACRILEX 2 MG LOZENGE PO PRN (16:31)
[2020-12-17] MEDS: TraZODone HCL 50 MG TABLET PO SCH (20:18)
[2020-12-18 09:50] VITALS: BP 136/90
[2020-12-18] MEDS: DIVALPROEX SODIUM 500 MG ER TABLET PO SCH ×2 (09:50→20:09)
[2020-12-18] MEDS: OMEPRAZOLE 20 MG CAPSULE PO SCH (09:50)
[2020-12-18] MEDS: OMEGA-3/DHA/EPA/FISH OIL 1,000 MG CAPSULE PO SCH (09:50)
[2020-12-18] MEDS: MULTIVITAMINS WITH MINERALS, THERAPEUTIC TABLET PO SCH (09:50)
[2020-12-18] MEDS: OLANZapine 10 MG TABLET PO SCH ×2 (09:51→20:09)
[2020-12-18] MEDS: AmLODIPine BESYLATE 5 MG TABLET PO SCH (09:51)
[2020-12-18 12:23] VITALS: BP 127/86
[2020-12-18] MEDS: NICOTINE POLACRILEX 2 MG LOZENGE PO PRN (14:15)
[2020-12-18 16:23] VITALS: BP 132/85
[2020-12-18] MEDS: TraZODone HCL 50 MG TABLET PO SCH (20:09)
[2020-12-19] MEDS: DIVALPROEX SODIUM 500 MG ER TABLET PO SCH ×2 (08:11→20:03)
[2020-12-19] MEDS: MULTIVITAMINS WITH MINERALS, THERAPEUTIC TABLET PO SCH (08:11)
[2020-12-19] MEDS: OLANZapine 10 MG TABLET PO SCH ×2 (08:11→20:03)
[2020-12-19] MEDS: OMEGA-3/DHA/EPA/FISH OIL 1,000 MG CAPSULE PO SCH (08:11)
[2020-12-19] MEDS: AmLODIPine BESYLATE 5 MG TABLET PO SCH (08:11)
[2020-12-19] MEDS: OMEPRAZOLE 20 MG CAPSULE PO SCH (08:11)
[2020-12-19 08:24] VITALS: BP 118/71
[2020-12-19 16:27] VITALS: BP 140/89
[2020-12-19] MEDS: TraZODone HCL 50 MG TABLET PO SCH (20:03)
[2020-12-20 00:51] VITALS: BP 114/72
[2020-12-20] MEDS: OLANZapine 10 MG TABLET PO SCH ×2 (08:18→21:08)
[2020-12-20] MEDS: OMEPRAZOLE 20 MG CAPSULE PO SCH (08:19)
[2020-12-20] MEDS: OMEGA-3/DHA/EPA/FISH OIL 1,000 MG CAPSULE PO SCH (08:19)
[2020-12-20] MEDS: DIVALPROEX SODIUM 500 MG ER TABLET PO SCH ×2 (08:19→21:08)
[2020-12-20] MEDS: MULTIVITAMINS WITH MINERALS, THERAPEUTIC TABLET PO SCH (08:19)
[2020-12-20] MEDS: AmLODIPine BESYLATE 5 MG TABLET PO SCH (08:19)
[2020-12-20 08:38] VITALS: BP 118/74
[2020-12-20 16:38] VITALS: BP 120/89
[2020-12-20] MEDS: IBUPROFEN 400 MG TABLET PO PRN (17:13)
[2020-12-20] MEDS: TraZODone HCL 50 MG TABLET PO SCH (21:06)
[2020-12-21 08:47] VITALS: BP 109/56
[2020-12-21] MEDS: OMEPRAZOLE 20 MG CAPSULE PO SCH (08:54)
[2020-12-21] MEDS: MULTIVITAMINS WITH MINERALS, THERAPEUTIC TABLET PO SCH (08:55)
[2020-12-21] MEDS: OLANZapine 10 MG TABLET PO SCH ×2 (08:55→20:14)
[2020-12-21] MEDS: OMEGA-3/DHA/EPA/FISH OIL 1,000 MG CAPSULE PO SCH (08:55)
[2020-12-21] MEDS: DIVALPROEX SODIUM 500 MG ER TABLET PO SCH ×2 (08:55→20:14)
[2020-12-21] MEDS: AmLODIPine BESYLATE 5 MG TABLET PO SCH (09:00)
[2020-12-21 16:21] VITALS: BP 128/88
[2020-12-21] MEDS: IBUPROFEN 400 MG TABLET PO PRN (17:22)
[2020-12-21] MEDS: TraZODone HCL 50 MG TABLET PO SCH (20:14)
[2020-12-22 00:53] VITALS: BP 122/80
[2020-12-22] MEDS: OMEPRAZOLE 20 MG CAPSULE PO SCH (08:27)
[2020-12-22] MEDS: MULTIVITAMINS WITH MINERALS, THERAPEUTIC TABLET PO SCH (08:27)
[2020-12-22] MEDS: OMEGA-3/DHA/EPA/FISH OIL 1,000 MG CAPSULE PO SCH (08:27)
[2020-12-22] MEDS: DIVALPROEX SODIUM 500 MG ER TABLET PO SCH ×2 (08:27→20:44)
[2020-12-22] MEDS: AmLODIPine BESYLATE 5 MG TABLET PO SCH (08:28)
[2020-12-22] MEDS: OLANZapine 10 MG TABLET PO SCH ×2 (08:28→20:42)
[2020-12-22 10:51] VITALS: BP 139/87
[2020-12-22 17:21] VITALS: BP 120/79
[2020-12-22] MEDS: TraZODone HCL 50 MG TABLET PO SCH (20:42)
[2020-12-23 00:21] VITALS: BP 128/79
[2020-12-23] MEDS: DIVALPROEX SODIUM 500 MG ER TABLET PO SCH ×2 (08:48→20:07)
[2020-12-23] MEDS: OLANZapine 10 MG TABLET PO SCH ×2 (08:48→20:07)
[2020-12-23] MEDS: AmLODIPine BESYLATE 5 MG TABLET PO SCH (08:48)
[2020-12-23] MEDS: OMEPRAZOLE 20 MG CAPSULE PO SCH (08:48)
[2020-12-23] MEDS: MULTIVITAMINS WITH MINERALS, THERAPEUTIC TABLET PO SCH (08:48)
[2020-12-23] MEDS: OMEGA-3/DHA/EPA/FISH OIL 1,000 MG CAPSULE PO SCH (08:48)
[2020-12-23 08:58] VITALS: BP 114/67
[2020-12-23] MEDS: IBUPROFEN 400 MG TABLET PO PRN (16:06)
[2020-12-23 16:28] VITALS: BP 139/89
[2020-12-23] MEDS: TraZODone HCL 50 MG TABLET PO SCH (20:07)
[2020-12-24 00:51] VITALS: BP 119/74
[2020-12-24 07:49] LABS: COVID AG,FIA SOURCE NASOPHARYNGEAL
[2020-12-24 08:30] VITALS: BP 117/76
[2020-12-24] MEDS: DIVALPROEX SODIUM 500 MG ER TABLET PO SCH ×2 (08:35→20:15)
[2020-12-24] MEDS: OLANZapine 10 MG TABLET PO SCH ×2 (08:35→20:15)
[2020-12-24] MEDS: MULTIVITAMINS WITH MINERALS, THERAPEUTIC TABLET PO SCH (08:35)
[2020-12-24] MEDS: AmLODIPine BESYLATE 5 MG TABLET PO SCH (08:35)
[2020-12-24] MEDS: OMEPRAZOLE 20 MG CAPSULE PO SCH (08:35)
[2020-12-24] MEDS: OMEGA-3/DHA/EPA/FISH OIL 1,000 MG CAPSULE PO SCH (08:35)
[2020-12-24 16:25] VITALS: BP 112/78
[2020-12-24] MEDS: TraZODone HCL 50 MG TABLET PO SCH (20:15)
[2020-12-25] VITALS: BP 116/68
[2020-12-25 08:55] VITALS: BP 139/82
[2020-12-25] MEDS: OLANZapine 10 MG TABLET PO SCH ×2 (08:57→20:21)
[2020-12-25] MEDS: OMEGA-3/DHA/EPA/FISH OIL 1,000 MG CAPSULE PO SCH (08:57)
[2020-12-25] MEDS: OMEPRAZOLE 20 MG CAPSULE PO SCH (08:57)
[2020-12-25] MEDS: MULTIVITAMINS WITH MINERALS, THERAPEUTIC TABLET PO SCH (08:57)
[2020-12-25] MEDS: AmLODIPine BESYLATE 5 MG TABLET PO SCH (08:57)
[2020-12-25] MEDS: DIVALPROEX SODIUM 500 MG ER TABLET PO SCH ×2 (08:57→20:21)
[2020-12-25 16:13] VITALS: BP 123/76
[2020-12-25] MEDS: TraZODone HCL 50 MG TABLET PO SCH (20:21)
[2020-12-26 00:24] VITALS: BP 114/67
[2020-12-26 08:27] VITALS: BP 114/67
[2020-12-26] MEDS: OMEPRAZOLE 20 MG CAPSULE PO SCH (08:34)
[2020-12-26] MEDS: MULTIVITAMINS WITH MINERALS, THERAPEUTIC TABLET PO SCH (08:34)
[2020-12-26] MEDS: AmLODIPine BESYLATE 5 MG TABLET PO SCH (08:34)
[2020-12-26] MEDS: OMEGA-3/DHA/EPA/FISH OIL 1,000 MG CAPSULE PO SCH (08:34)
[2020-12-26] MEDS: DIVALPROEX SODIUM 500 MG ER TABLET PO SCH ×2 (08:34→20:20)
[2020-12-26] MEDS: OLANZapine 10 MG TABLET PO SCH ×2 (08:35→20:20)
[2020-12-26 16:11] VITALS: BP 140/85
[2020-12-26] MEDS: TraZODone HCL 50 MG TABLET PO SCH (20:20)
[2020-12-26] MEDS: IBUPROFEN 400 MG TABLET PO PRN (20:33)
[2020-12-27 00:45] VITALS: BP 120/73
[2020-12-27 08:32] VITALS: BP 100/65
[2020-12-27] MEDS: MULTIVITAMINS WITH MINERALS, THERAPEUTIC TABLET PO SCH (08:48)
[2020-12-27] MEDS: OMEPRAZOLE 20 MG CAPSULE PO SCH (08:48)
[2020-12-27] MEDS: OLANZapine 10 MG TABLET PO SCH ×2 (08:48→20:10)
[2020-12-27] MEDS: OMEGA-3/DHA/EPA/FISH OIL 1,000 MG CAPSULE PO SCH (08:48)
[2020-12-27] MEDS: DIVALPROEX SODIUM 500 MG ER TABLET PO SCH ×2 (08:48→20:10)
[2020-12-27] MEDS: AmLODIPine BESYLATE 5 MG TABLET PO SCH (08:53)
[2020-12-27 16:19] VITALS: BP 116/74
[2020-12-27] MEDS: TraZODone HCL 50 MG TABLET PO SCH (20:10)
[2020-12-28 08:16] VITALS: BP 110/65
[2020-12-28] MEDS: OMEGA-3/DHA/EPA/FISH OIL 1,000 MG CAPSULE PO SCH (08:33)
[2020-12-28] MEDS: AmLODIPine BESYLATE 5 MG TABLET PO SCH (08:33)
[2020-12-28] MEDS: OMEPRAZOLE 20 MG CAPSULE PO SCH (08:33)
[2020-12-28] MEDS: MULTIVITAMINS WITH MINERALS, THERAPEUTIC TABLET PO SCH (08:33)
[2020-12-28] MEDS: DIVALPROEX SODIUM 500 MG ER TABLET PO SCH ×2 (08:33→19:57)
[2020-12-28] MEDS: OLANZapine 10 MG TABLET PO SCH ×2 (08:33→19:58)
[2020-12-28 16:26] VITALS: BP 132/60
[2020-12-28] MEDS: TraZODone HCL 50 MG TABLET PO SCH (19:58)
[2020-12-29 00:16] VITALS: BP 118/67
[2020-12-29 08:19] VITALS: BP 126/87
[2020-12-29] MEDS: MULTIVITAMINS WITH MINERALS, THERAPEUTIC TABLET PO SCH (09:54)
[2020-12-29] MEDS: OMEGA-3/DHA/EPA/FISH OIL 1,000 MG CAPSULE PO SCH (09:54)
[2020-12-29] MEDS: DIVALPROEX SODIUM 500 MG ER TABLET PO SCH ×2 (09:54→20:28)
[2020-12-29] MEDS: OLANZapine 10 MG TABLET PO SCH ×2 (09:54→20:29)
[2020-12-29] MEDS: OMEPRAZOLE 20 MG CAPSULE PO SCH (09:54)
[2020-12-29] MEDS: AmLODIPine BESYLATE 5 MG TABLET PO SCH (09:55)
[2020-12-29] MEDS: IBUPROFEN 400 MG TABLET PO PRN (16:04)
[2020-12-29 16:23] VITALS: BP 143/90
[2020-12-29] MEDS: NICOTINE POLACRILEX 2 MG LOZENGE PO PRN (19:33)
[2020-12-29] MEDS: TraZODone HCL 50 MG TABLET PO SCH (20:28)
[2020-12-30] MEDS: MULTIVITAMINS WITH MINERALS, THERAPEUTIC TABLET PO SCH (08:31)
[2020-12-30] MEDS: OLANZapine 10 MG TABLET PO SCH ×2 (08:31→20:08)
[2020-12-30] MEDS: OMEPRAZOLE 20 MG CAPSULE PO SCH (08:31)
[2020-12-30] MEDS: OMEGA-3/DHA/EPA/FISH OIL 1,000 MG CAPSULE PO SCH (08:31)
[2020-12-30] MEDS: AmLODIPine BESYLATE 5 MG TABLET PO SCH (08:31)
[2020-12-30] MEDS: DIVALPROEX SODIUM 500 MG ER TABLET PO SCH ×2 (08:31→20:08)
[2020-12-30] MEDS: IBUPROFEN 400 MG TABLET PO PRN (08:33)
[2020-12-30 08:37] VITALS: BP 135/85
[2020-12-30 16:15] VITALS: BP 146/93
[2020-12-30] MEDS: TraZODone HCL 50 MG TABLET PO SCH (20:08)
[2020-12-31 08:11] VITALS: BP 122/78
[2020-12-31] MEDS: OLANZapine 10 MG TABLET PO SCH ×2 (08:40→20:09)
[2020-12-31] MEDS: MULTIVITAMINS WITH MINERALS, THERAPEUTIC TABLET PO SCH (08:40)
[2020-12-31] MEDS: DIVALPROEX SODIUM 500 MG ER TABLET PO SCH ×2 (08:41→20:09)
[2020-12-31] MEDS: OMEGA-3/DHA/EPA/FISH OIL 1,000 MG CAPSULE PO SCH (08:41)
[2020-12-31] MEDS: AmLODIPine BESYLATE 5 MG TABLET PO SCH (08:41)
[2020-12-31] MEDS: OMEPRAZOLE 20 MG CAPSULE PO SCH (08:41)
[2020-12-31 08:54] LABS: COVID AG,FIA SOURCE NASOPHARYNGEAL
[2020-12-31 16:11] VITALS: BP 133/89
[2020-12-31] MEDS: TraZODone HCL 50 MG TABLET PO SCH (20:09)
[2021-01-01 00:39] VITALS: BP 135/79
[2021-01-01 08:15] VITALS: BP 102/67
[2021-01-01] MEDS: AmLODIPine BESYLATE 5 MG TABLET PO SCH (09:00)
[2021-01-01] MEDS: OMEGA-3/DHA/EPA/FISH OIL 1,000 MG CAPSULE PO SCH (09:48)
[2021-01-01] MEDS: OLANZapine 10 MG TABLET PO SCH ×2 (09:48→20:41)
[2021-01-01] MEDS: MULTIVITAMINS WITH MINERALS, THERAPEUTIC TABLET PO SCH (09:48)
[2021-01-01] MEDS: OMEPRAZOLE 20 MG CAPSULE PO SCH (09:48)
[2021-01-01] MEDS: DIVALPROEX SODIUM 500 MG ER TABLET PO SCH ×2 (09:48→20:41)
[2021-01-01 16:09] VITALS: BP 140/90
[2021-01-01] MEDS: TraZODone HCL 50 MG TABLET PO SCH (20:41)
[2021-01-02 00:30] VITALS: BP 127/78
[2021-01-02] MEDS: OLANZapine 10 MG TABLET PO SCH ×2 (08:47→20:02)
[2021-01-02] MEDS: DIVALPROEX SODIUM 500 MG ER TABLET PO SCH ×2 (08:48→20:02)
[2021-01-02] MEDS: OMEGA-3/DHA/EPA/FISH OIL 1,000 MG CAPSULE PO SCH (08:48)
[2021-01-02] MEDS: OMEPRAZOLE 20 MG CAPSULE PO SCH (08:48)
[2021-01-02] MEDS: MULTIVITAMINS WITH MINERALS, THERAPEUTIC TABLET PO SCH (08:48)
[2021-01-02] MEDS: AmLODIPine BESYLATE 5 MG TABLET PO SCH (08:48)
[2021-01-02 09:31] VITALS: BP 142/95
[2021-01-02] MEDS: IBUPROFEN 400 MG TABLET PO PRN ×2 (10:39→20:03)
[2021-01-02 16:04] VITALS: BP 147/86
[2021-01-02] MEDS: TraZODone HCL 50 MG TABLET PO SCH (20:02)
[2021-01-03 07:26] VITALS: BP 113/75
[2021-01-03 08:31] VITALS: BP 108/80
[2021-01-03] MEDS: AmLODIPine BESYLATE 5 MG TABLET PO SCH (09:00)
[2021-01-03] MEDS: MULTIVITAMINS WITH MINERALS, THERAPEUTIC TABLET PO SCH (09:42)
[2021-01-03] MEDS: OMEPRAZOLE 20 MG CAPSULE PO SCH (09:42)
[2021-01-03] MEDS: OLANZapine 10 MG TABLET PO SCH ×2 (09:42→20:25)
[2021-01-03] MEDS: DIVALPROEX SODIUM 500 MG ER TABLET PO SCH ×2 (09:42→20:24)
[2021-01-03] MEDS: OMEGA-3/DHA/EPA/FISH OIL 1,000 MG CAPSULE PO SCH (09:42)
[2021-01-03 17:35] VITALS: BP 125/89
[2021-01-03] MEDS: TraZODone HCL 50 MG TABLET PO SCH (20:24)
[2021-01-04 05:08] VITALS: BP 130/82
[2021-01-04] MEDS: MULTIVITAMINS WITH MINERALS, THERAPEUTIC TABLET PO SCH (08:11)
[2021-01-04] MEDS: OLANZapine 10 MG TABLET PO SCH ×2 (08:11→20:12)
[2021-01-04] MEDS: OMEPRAZOLE 20 MG CAPSULE PO SCH (08:11)
[2021-01-04] MEDS: DIVALPROEX SODIUM 500 MG ER TABLET PO SCH ×2 (08:11→20:12)
[2021-01-04] MEDS: AmLODIPine BESYLATE 5 MG TABLET PO SCH (08:11)
[2021-01-04] MEDS: OMEGA-3/DHA/EPA/FISH OIL 1,000 MG CAPSULE PO SCH (08:11)
[2021-01-04 08:16] VITALS: BP 125/84
[2021-01-04 16:13] VITALS: BP 132/92
[2021-01-04] MEDS: TraZODone HCL 50 MG TABLET PO SCH (20:12)
[2021-01-05 06:24] VITALS: BP 116/78
[2021-01-05] MEDS: OLANZapine 10 MG TABLET PO SCH ×2 (08:21→20:12)
[2021-01-05] MEDS: OMEGA-3/DHA/EPA/FISH OIL 1,000 MG CAPSULE PO SCH (08:21)
[2021-01-05] MEDS: DIVALPROEX SODIUM 500 MG ER TABLET PO SCH ×2 (08:21→20:11)
[2021-01-05] MEDS: MULTIVITAMINS WITH MINERALS, THERAPEUTIC TABLET PO SCH (08:21)
[2021-01-05] MEDS: OMEPRAZOLE 20 MG CAPSULE PO SCH (08:21)
[2021-01-05] MEDS: AmLODIPine BESYLATE 5 MG TABLET PO SCH (09:42)
[2021-01-05] MEDS: IBUPROFEN 400 MG TABLET PO PRN (14:54)
[2021-01-05 16:02] VITALS: BP 128/87
[2021-01-05] MEDS: TraZODone HCL 50 MG TABLET PO SCH (20:12)
[2021-01-06 05:35] VITALS: BP 108/75
[2021-01-06 08:09] VITALS: BP 109/70
[2021-01-06] MEDS: DIVALPROEX SODIUM 500 MG ER TABLET PO SCH ×2 (08:25→20:13)
[2021-01-06] MEDS: MULTIVITAMINS WITH MINERALS, THERAPEUTIC TABLET PO SCH (08:25)
[2021-01-06] MEDS: OMEGA-3/DHA/EPA/FISH OIL 1,000 MG CAPSULE PO SCH (08:25)
[2021-01-06] MEDS: AmLODIPine BESYLATE 5 MG TABLET PO SCH (08:25)
[2021-01-06] MEDS: OMEPRAZOLE 20 MG CAPSULE PO SCH (08:25)
[2021-01-06] MEDS: OLANZapine 10 MG TABLET PO SCH ×2 (08:25→20:13)
[2021-01-06 16:24] VITALS: BP 112/82
[2021-01-06] MEDS: IBUPROFEN 400 MG TABLET PO PRN (18:55)
[2021-01-06] MEDS: TraZODone HCL 50 MG TABLET PO SCH (20:13)
[2021-01-07 06:45] VITALS: BP 135/83
[2021-01-07] MEDS: OMEPRAZOLE 20 MG CAPSULE PO SCH (08:18)
[2021-01-07] MEDS: DIVALPROEX SODIUM 500 MG ER TABLET PO SCH ×2 (08:18→20:38)
[2021-01-07] MEDS: OLANZapine 10 MG TABLET PO SCH ×2 (08:18→20:39)
[2021-01-07] MEDS: AmLODIPine BESYLATE 5 MG TABLET PO SCH (08:18)
[2021-01-07] MEDS: MULTIVITAMINS WITH MINERALS, THERAPEUTIC TABLET PO SCH (08:18)
[2021-01-07] MEDS: OMEGA-3/DHA/EPA/FISH OIL 1,000 MG CAPSULE PO SCH (08:18)
[2021-01-07 08:54] VITALS: BP 118/62
[2021-01-07 08:56] LABS: COVID AG,FIA SOURCE NASOPHARYNGEAL
[2021-01-07 16:29] VITALS: BP 114/66
[2021-01-07] MEDS: TraZODone HCL 50 MG TABLET PO SCH (20:38)
[2021-01-08 05:57] VITALS: BP 111/69
[2021-01-08 08:30] VITALS: BP 112/70
[2021-01-08] MEDS: OMEGA-3/DHA/EPA/FISH OIL 1,000 MG CAPSULE PO SCH (08:33)
[2021-01-08] MEDS: OLANZapine 10 MG TABLET PO SCH ×2 (08:33→20:05)
[2021-01-08] MEDS: DIVALPROEX SODIUM 500 MG ER TABLET PO SCH ×2 (08:33→20:05)
[2021-01-08] MEDS: AmLODIPine BESYLATE 5 MG TABLET PO SCH (08:33)
[2021-01-08] MEDS: OMEPRAZOLE 20 MG CAPSULE PO SCH (08:33)
[2021-01-08] MEDS: MULTIVITAMINS WITH MINERALS, THERAPEUTIC TABLET PO SCH (08:33)
[2021-01-08 16:09] VITALS: BP 129/78
[2021-01-08] MEDS: TraZODone HCL 50 MG TABLET PO SCH (20:05)
[2021-01-09 00:20] VITALS: BP 133/91
[2021-01-09] MEDS: OLANZapine 10 MG TABLET PO SCH ×2 (08:07→20:05)
[2021-01-09] MEDS: OMEGA-3/DHA/EPA/FISH OIL 1,000 MG CAPSULE PO SCH (08:08)
[2021-01-09] MEDS: MULTIVITAMINS WITH MINERALS, THERAPEUTIC TABLET PO SCH (08:08)
[2021-01-09] MEDS: DIVALPROEX SODIUM 500 MG ER TABLET PO SCH ×2 (08:08→20:05)
[2021-01-09] MEDS: OMEPRAZOLE 20 MG CAPSULE PO SCH (08:08)
[2021-01-09] MEDS: AmLODIPine BESYLATE 5 MG TABLET PO SCH (08:09)
[2021-01-09 08:21] VITALS: BP 106/70
[2021-01-09 17:33] VITALS: BP 132/90
[2021-01-09] MEDS: TraZODone HCL 50 MG TABLET PO SCH (20:05)
[2021-01-09] MEDS: IBUPROFEN 400 MG TABLET PO PRN (20:39)
[2021-01-10 06:32] VITALS: BP 122/76
[2021-01-10] MEDS: OMEPRAZOLE 20 MG CAPSULE PO SCH (08:16)
[2021-01-10] MEDS: AmLODIPine BESYLATE 5 MG TABLET PO SCH (08:16)
[2021-01-10] MEDS: MULTIVITAMINS WITH MINERALS, THERAPEUTIC TABLET PO SCH (08:16)
[2021-01-10] MEDS: DIVALPROEX SODIUM 500 MG ER TABLET PO SCH ×2 (08:16→20:07)
[2021-01-10] MEDS: OMEGA-3/DHA/EPA/FISH OIL 1,000 MG CAPSULE PO SCH (08:16)
[2021-01-10] MEDS: OLANZapine 10 MG TABLET PO SCH ×2 (08:17→20:06)
[2021-01-10 09:10] VITALS: BP 110/68
[2021-01-10 16:09] VITALS: BP 122/69
[2021-01-10] MEDS: TraZODone HCL 50 MG TABLET PO SCH (20:07)
[2021-01-11 06:18] VITALS: BP 112/68
[2021-01-11 08:06] VITALS: BP 106/68
[2021-01-11] MEDS: DIVALPROEX SODIUM 500 MG ER TABLET PO SCH ×2 (09:06→20:03)
[2021-01-11] MEDS: OMEPRAZOLE 20 MG CAPSULE PO SCH (09:06)
[2021-01-11] MEDS: OMEGA-3/DHA/EPA/FISH OIL 1,000 MG CAPSULE PO SCH (09:06)
[2021-01-11] MEDS: OLANZapine 10 MG TABLET PO SCH ×2 (09:06→20:03)
[2021-01-11] MEDS: MULTIVITAMINS WITH MINERALS, THERAPEUTIC TABLET PO SCH (09:07)
[2021-01-11] MEDS: AmLODIPine BESYLATE 5 MG TABLET PO SCH (09:07)
[2021-01-11 16:04] VITALS: BP 131/79
[2021-01-11] MEDS: TraZODone HCL 50 MG TABLET PO SCH (20:03)
[2021-01-12 04:40] VITALS: BP 116/70
[2021-01-12 08:11] VITALS: BP 134/81
[2021-01-12] MEDS: OMEGA-3/DHA/EPA/FISH OIL 1,000 MG CAPSULE PO SCH (08:22)
[2021-01-12] MEDS: AmLODIPine BESYLATE 5 MG TABLET PO SCH (08:22)
[2021-01-12] MEDS: DIVALPROEX SODIUM 500 MG ER TABLET PO SCH ×2 (08:22→20:32)
[2021-01-12] MEDS: MULTIVITAMINS WITH MINERALS, THERAPEUTIC TABLET PO SCH (08:22)
[2021-01-12] MEDS: OMEPRAZOLE 20 MG CAPSULE PO SCH (08:23)
[2021-01-12] MEDS: OLANZapine 10 MG TABLET PO SCH ×2 (08:23→20:32)
[2021-01-12 16:14] VITALS: BP 136/72
[2021-01-12] MEDS: TraZODone HCL 50 MG TABLET PO SCH (20:31)
[2021-01-13 07:08] VITALS: BP 123/77
[2021-01-13 08:08] VITALS: BP 135/79
[2021-01-13] MEDS: OMEGA-3/DHA/EPA/FISH OIL 1,000 MG CAPSULE PO SCH (08:14)
[2021-01-13] MEDS: OMEPRAZOLE 20 MG CAPSULE PO SCH (08:14)
[2021-01-13] MEDS: DIVALPROEX SODIUM 500 MG ER TABLET PO SCH ×2 (08:14→20:03)
[2021-01-13] MEDS: OLANZapine 10 MG TABLET PO SCH ×2 (08:14→20:01)
[2021-01-13] MEDS: MULTIVITAMINS WITH MINERALS, THERAPEUTIC TABLET PO SCH (08:14)
[2021-01-13] MEDS: AmLODIPine BESYLATE 5 MG TABLET PO SCH (08:14)
[2021-01-13 16:02] VITALS: BP 143/89
[2021-01-13] MEDS: TraZODone HCL 50 MG TABLET PO SCH (20:02)
[2021-01-14 00:08] VITALS: BP 124/92
[2021-01-14] MEDS: OMEPRAZOLE 20 MG CAPSULE PO SCH (08:20)
[2021-01-14] MEDS: MULTIVITAMINS WITH MINERALS, THERAPEUTIC TABLET PO SCH (08:20)
[2021-01-14] MEDS: OLANZapine 10 MG TABLET PO SCH ×2 (08:21→20:13)
[2021-01-14] MEDS: OMEGA-3/DHA/EPA/FISH OIL 1,000 MG CAPSULE PO SCH (08:21)
[2021-01-14] MEDS: DIVALPROEX SODIUM 500 MG ER TABLET PO SCH ×2 (08:21→20:13)
[2021-01-14] MEDS: AmLODIPine BESYLATE 5 MG TABLET PO SCH (08:21)
[2021-01-14 08:24] VITALS: BP 107/72
[2021-01-14 09:26] LABS: COVID AG,FIA SOURCE NASOPHARYNGEAL
[2021-01-14 16:17] VITALS: BP 121/81
[2021-01-14] MEDS: NICOTINE POLACRILEX 2 MG LOZENGE PO PRN (17:49)
[2021-01-14] MEDS: TraZODone HCL 50 MG TABLET PO SCH (20:13)
[2021-01-15 08:20] VITALS: BP 110/71
[2021-01-15] MEDS: OMEGA-3/DHA/EPA/FISH OIL 1,000 MG CAPSULE PO SCH (08:26)
[2021-01-15] MEDS: OMEPRAZOLE 20 MG CAPSULE PO SCH (08:27)
[2021-01-15] MEDS: OLANZapine 10 MG TABLET PO SCH ×2 (08:27→20:12)
[2021-01-15] MEDS: AmLODIPine BESYLATE 5 MG TABLET PO SCH (08:27)
[2021-01-15] MEDS: DIVALPROEX SODIUM 500 MG ER TABLET PO SCH ×2 (08:27→20:12)
[2021-01-15] MEDS: MULTIVITAMINS WITH MINERALS, THERAPEUTIC TABLET PO SCH (08:27)
[2021-01-15 16:15] VITALS: BP 106/67
[2021-01-15] MEDS ORDERED: LORazepam 2 MG TABLET PO ONE (16:45)
[2021-01-15] MEDS: TraZODone HCL 50 MG TABLET PO SCH (20:11)
[2021-01-16 00:22] VITALS: BP 131/75
[2021-01-16 08:10] VITALS: BP 121/90
[2021-01-16] MEDS: OMEGA-3/DHA/EPA/FISH OIL 1,000 MG CAPSULE PO SCH (08:20)
[2021-01-16] MEDS: MULTIVITAMINS WITH MINERALS, THERAPEUTIC TABLET PO SCH (08:20)
[2021-01-16] MEDS: AmLODIPine BESYLATE 5 MG TABLET PO SCH (08:20)
[2021-01-16] MEDS: OLANZapine 10 MG TABLET PO SCH ×2 (08:21→20:10)
[2021-01-16] MEDS: DIVALPROEX SODIUM 500 MG ER TABLET PO SCH ×2 (08:21→20:10)
[2021-01-16] MEDS: OMEPRAZOLE 20 MG CAPSULE PO SCH (08:21)
[2021-01-16 16:12] VITALS: BP 138/86
[2021-01-16] MEDS: TraZODone HCL 50 MG TABLET PO SCH (20:10)
[2021-01-17] VITALS: BP 124/75
[2021-01-17 08:07] VITALS: BP 102/61
[2021-01-17] MEDS: DIVALPROEX SODIUM 500 MG ER TABLET PO SCH ×2 (08:22→21:17)
[2021-01-17] MEDS: OLANZapine 10 MG TABLET PO SCH ×2 (08:22→21:17)
[2021-01-17] MEDS: OMEPRAZOLE 20 MG CAPSULE PO SCH (08:22)
[2021-01-17] MEDS: AmLODIPine BESYLATE 5 MG TABLET PO SCH (08:22)
[2021-01-17] MEDS: MULTIVITAMINS WITH MINERALS, THERAPEUTIC TABLET PO SCH (08:23)
[2021-01-17] MEDS: OMEGA-3/DHA/EPA/FISH OIL 1,000 MG CAPSULE PO SCH (08:23)
[2021-01-17 16:32] VITALS: BP 149/96
[2021-01-17] MEDS: TraZODone HCL 50 MG TABLET PO SCH (21:17)
[2021-01-18 06:13] VITALS: BP 107/67
[2021-01-18 08:16] VITALS: BP 116/79
[2021-01-18] MEDS: OLANZapine 10 MG TABLET PO SCH ×2 (09:03→20:01)
[2021-01-18] MEDS: DIVALPROEX SODIUM 500 MG ER TABLET PO SCH ×2 (09:03→20:00)
[2021-01-18] MEDS: MULTIVITAMINS WITH MINERALS, THERAPEUTIC TABLET PO SCH (09:03)
[2021-01-18] MEDS: OMEGA-3/DHA/EPA/FISH OIL 1,000 MG CAPSULE PO SCH (09:03)
[2021-01-18] MEDS: OMEPRAZOLE 20 MG CAPSULE PO SCH (09:03)
[2021-01-18] MEDS: AmLODIPine BESYLATE 5 MG TABLET PO SCH (09:08)
[2021-01-18 16:06] VITALS: BP 125/85
[2021-01-18] MEDS: TraZODone HCL 50 MG TABLET PO SCH (20:00)
[2021-01-19 06:19] VITALS: BP 118/65
[2021-01-19 08:26] VITALS: BP 115/71
[2021-01-19] MEDS: OMEPRAZOLE 20 MG CAPSULE PO SCH (08:34)
[2021-01-19] MEDS: OLANZapine 10 MG TABLET PO SCH ×2 (08:34→20:04)
[2021-01-19] MEDS: OMEGA-3/DHA/EPA/FISH OIL 1,000 MG CAPSULE PO SCH (08:34)
[2021-01-19] MEDS: DIVALPROEX SODIUM 500 MG ER TABLET PO SCH ×2 (08:34→20:04)
[2021-01-19] MEDS: MULTIVITAMINS WITH MINERALS, THERAPEUTIC TABLET PO SCH (08:34)
[2021-01-19] MEDS: AmLODIPine BESYLATE 5 MG TABLET PO SCH (08:34)
[2021-01-19 16:36] VITALS: BP 106/53
[2021-01-19] MEDS: TraZODone HCL 50 MG TABLET PO SCH (20:04)
[2021-01-20 05:21] VITALS: BP 106/53
[2021-01-20] MEDS: DIVALPROEX SODIUM 500 MG ER TABLET PO SCH ×2 (08:21→20:03)
[2021-01-20] MEDS: OMEPRAZOLE 20 MG CAPSULE PO SCH (08:21)
[2021-01-20] MEDS: MULTIVITAMINS WITH MINERALS, THERAPEUTIC TABLET PO SCH (08:21)
[2021-01-20] MEDS: OLANZapine 10 MG TABLET PO SCH ×2 (08:21→20:03)
[2021-01-20] MEDS: AmLODIPine BESYLATE 5 MG TABLET PO SCH (08:21)
[2021-01-20] MEDS: OMEGA-3/DHA/EPA/FISH OIL 1,000 MG CAPSULE PO SCH (08:21)
[2021-01-20 08:39] VITALS: BP 120/75
[2021-01-20 16:09] VITALS: BP 144/79
[2021-01-20] MEDS: TraZODone HCL 50 MG TABLET PO SCH (20:03)
[2021-01-21 06:29] VITALS: BP 94/55
[2021-01-21] MEDS: OMEGA-3/DHA/EPA/FISH OIL 1,000 MG CAPSULE PO SCH (08:10)
[2021-01-21] MEDS: OLANZapine 10 MG TABLET PO SCH ×2 (08:10→20:07)
[2021-01-21] MEDS: MULTIVITAMINS WITH MINERALS, THERAPEUTIC TABLET PO SCH (08:10)
[2021-01-21] MEDS: OMEPRAZOLE 20 MG CAPSULE PO SCH (08:10)
[2021-01-21] MEDS: DIVALPROEX SODIUM 500 MG ER TABLET PO SCH ×2 (08:11→20:07)
[2021-01-21] MEDS: AmLODIPine BESYLATE 5 MG TABLET PO SCH (08:11)
[2021-01-21 08:15] VITALS: BP 128/85
[2021-01-21 08:52] LABS: COVID AG,FIA SOURCE NASOPHARYNGEAL
[2021-01-21 16:01] VITALS: BP 138/90
[2021-01-21] MEDS: TraZODone HCL 50 MG TABLET PO SCH (20:07)
[2021-01-22 06:05] VITALS: BP 110/57
[2021-01-22] MEDS: OLANZapine 10 MG TABLET PO SCH ×2 (08:22→20:03)
[2021-01-22] MEDS: MULTIVITAMINS WITH MINERALS, THERAPEUTIC TABLET PO SCH (08:22)
[2021-01-22] MEDS: OMEPRAZOLE 20 MG CAPSULE PO SCH (08:22)
[2021-01-22] MEDS: OMEGA-3/DHA/EPA/FISH OIL 1,000 MG CAPSULE PO SCH (08:22)
[2021-01-22] MEDS: AmLODIPine BESYLATE 5 MG TABLET PO SCH (08:22)
[2021-01-22] MEDS: DIVALPROEX SODIUM 500 MG ER TABLET PO SCH ×2 (08:22→20:03)
[2021-01-22 08:42] VITALS: BP 119/73
[2021-01-22 16:06] VITALS: BP 110/64
[2021-01-22] MEDS: TraZODone HCL 50 MG TABLET PO SCH (20:03)
[2021-01-23 00:20] VITALS: BP 118/67
[2021-01-23] MEDS: AmLODIPine BESYLATE 5 MG TABLET PO SCH (08:05)
[2021-01-23] MEDS: MULTIVITAMINS WITH MINERALS, THERAPEUTIC TABLET PO SCH (08:05)
[2021-01-23] MEDS: OLANZapine 10 MG TABLET PO SCH ×2 (08:05→21:52)
[2021-01-23] MEDS: OMEPRAZOLE 20 MG CAPSULE PO SCH (08:05)
[2021-01-23] MEDS: DIVALPROEX SODIUM 500 MG ER TABLET PO SCH ×2 (08:05→21:52)
[2021-01-23] MEDS: OMEGA-3/DHA/EPA/FISH OIL 1,000 MG CAPSULE PO SCH (08:12)
[2021-01-23 08:20] VITALS: BP 107/60
[2021-01-23] MEDS ORDERED: LORazepam 2 MG/ML VIAL ONE (13:27)
[2021-01-23] MEDS ORDERED: DiphenhydrAMINE HCL 50 MG/ML VIAL ONE (13:27)
[2021-01-23] MEDS ORDERED: HALOPERIDOL LACTATE 5 MG/ML VIAL ONE ×2 (13:27→13:29)
[2021-01-23] MEDS ORDERED: LORazepam 2 MG/ML VIAL IM ONE (13:45)
[2021-01-23] MEDS ORDERED: HALOPERIDOL LACTATE 5 MG/ML VIAL IM ONE (13:45)
[2021-01-23] MEDS ORDERED: DiphenhydrAMINE HCL 50 MG/ML VIAL IM ONE (13:45)
[2021-01-23 19:44] VITALS: BP 146/91
[2021-01-23] MEDS: TraZODone HCL 50 MG TABLET PO SCH (21:52)
[2021-01-24] MEDS: OMEGA-3/DHA/EPA/FISH OIL 1,000 MG CAPSULE PO SCH (08:59)
[2021-01-24] MEDS: MULTIVITAMINS WITH MINERALS, THERAPEUTIC TABLET PO SCH (08:59)
[2021-01-24] MEDS: OLANZapine 10 MG TABLET PO SCH ×2 (08:59→20:05)
[2021-01-24] MEDS: OMEPRAZOLE 20 MG CAPSULE PO SCH (09:00)
[2021-01-24] MEDS: AmLODIPine BESYLATE 5 MG TABLET PO SCH (09:00)
[2021-01-24] MEDS: DIVALPROEX SODIUM 500 MG ER TABLET PO SCH ×2 (09:00→20:05)
[2021-01-24 09:15] VITALS: BP 128/87
[2021-01-24 16:00] VITALS: BP 138/80
[2021-01-24] MEDS: TraZODone HCL 50 MG TABLET PO SCH (20:05)
[2021-01-25 08:00] VITALS: BP 128/81
[2021-01-25] MEDS: OMEGA-3/DHA/EPA/FISH OIL 1,000 MG CAPSULE PO SCH (08:33)
[2021-01-25] MEDS: DIVALPROEX SODIUM 500 MG ER TABLET PO SCH ×2 (08:33→20:40)
[2021-01-25] MEDS: AmLODIPine BESYLATE 5 MG TABLET PO SCH (08:33)
[2021-01-25] MEDS: OLANZapine 10 MG TABLET PO SCH ×2 (08:33→20:40)
[2021-01-25] MEDS: MULTIVITAMINS WITH MINERALS, THERAPEUTIC TABLET PO SCH (08:33)
[2021-01-25] MEDS: OMEPRAZOLE 20 MG CAPSULE PO SCH (08:33)
[2021-01-25 16:00] VITALS: BP_SYST 127; BP_SYST 129; BP_DIAS 81; BP_DIAS 87
[2021-01-25] MEDS: TraZODone HCL 50 MG TABLET PO SCH (20:39)
[2021-01-26] MEDS: DIVALPROEX SODIUM 500 MG ER TABLET PO SCH ×2 (08:10→20:14)
[2021-01-26] MEDS: MULTIVITAMINS WITH MINERALS, THERAPEUTIC TABLET PO SCH (08:10)
[2021-01-26] MEDS: OLANZapine 10 MG TABLET PO SCH ×2 (08:10→20:15)
[2021-01-26] MEDS: AmLODIPine BESYLATE 5 MG TABLET PO SCH (08:10)
[2021-01-26] MEDS: OMEPRAZOLE 20 MG CAPSULE PO SCH (08:10)
[2021-01-26] MEDS: OMEGA-3/DHA/EPA/FISH OIL 1,000 MG CAPSULE PO SCH (08:10)
[2021-01-26 16:00] VITALS: BP 125/76
[2021-01-26] MEDS: TraZODone HCL 50 MG TABLET PO SCH (20:14)
[2021-01-27 08:00] VITALS: BP 107/73
[2021-01-27] MEDS: MULTIVITAMINS WITH MINERALS, THERAPEUTIC TABLET PO SCH (09:54)
[2021-01-27] MEDS: OMEGA-3/DHA/EPA/FISH OIL 1,000 MG CAPSULE PO SCH (09:54)
[2021-01-27] MEDS: DIVALPROEX SODIUM 500 MG ER TABLET PO SCH ×2 (09:54→20:11)
[2021-01-27] MEDS: OMEPRAZOLE 20 MG CAPSULE PO SCH (09:54)
[2021-01-27] MEDS: AmLODIPine BESYLATE 5 MG TABLET PO SCH (09:55)
[2021-01-27] MEDS: OLANZapine 10 MG TABLET PO SCH ×2 (09:55→20:10)
[2021-01-27 16:18] VITALS: BP 126/92
[2021-01-27] MEDS: TraZODone HCL 50 MG TABLET PO SCH (20:12)
[2021-01-28] MEDS: MULTIVITAMINS WITH MINERALS, THERAPEUTIC TABLET PO SCH (08:06)
[2021-01-28] MEDS: OLANZapine 10 MG TABLET PO SCH ×2 (08:07→20:13)
[2021-01-28] MEDS: AmLODIPine BESYLATE 5 MG TABLET PO SCH (08:07)
[2021-01-28] MEDS: OMEPRAZOLE 20 MG CAPSULE PO SCH (08:07)
[2021-01-28] MEDS: OMEGA-3/DHA/EPA/FISH OIL 1,000 MG CAPSULE PO SCH (08:07)
[2021-01-28] MEDS: DIVALPROEX SODIUM 500 MG ER TABLET PO SCH ×2 (08:07→20:13)
[2021-01-28 17:39] VITALS: BP 114/76
[2021-01-28 17:41] LABS: COVID AG,FIA SOURCE NASAL SWAB
[2021-01-28] MEDS: TraZODone HCL 50 MG TABLET PO SCH (20:13)
[2021-01-29] MEDS: IBUPROFEN 400 MG TABLET PO PRN (01:41)
[2021-01-29 01:42] VITALS: BP 121/63
[2021-01-29 08:30] VITALS: BP 118/65
[2021-01-29] MEDS: OMEPRAZOLE 20 MG CAPSULE PO SCH (09:26)
[2021-01-29] MEDS: DIVALPROEX SODIUM 500 MG ER TABLET PO SCH ×2 (09:26→20:07)
[2021-01-29] MEDS: OMEGA-3/DHA/EPA/FISH OIL 1,000 MG CAPSULE PO SCH (09:27)
[2021-01-29] MEDS: AmLODIPine BESYLATE 5 MG TABLET PO SCH (09:27)
[2021-01-29] MEDS: MULTIVITAMINS WITH MINERALS, THERAPEUTIC TABLET PO SCH (09:27)
[2021-01-29] MEDS: OLANZapine 10 MG TABLET PO SCH ×2 (09:27→20:07)
[2021-01-29 16:48] VITALS: BP 127/82
[2021-01-29] MEDS: TraZODone HCL 50 MG TABLET PO SCH (20:07)
[2021-01-30 08:30] VITALS: BP 120/77
[2021-01-30] MEDS: OMEGA-3/DHA/EPA/FISH OIL 1,000 MG CAPSULE PO SCH (10:30)
[2021-01-30] MEDS: OMEPRAZOLE 20 MG CAPSULE PO SCH (10:30)
[2021-01-30] MEDS: AmLODIPine BESYLATE 5 MG TABLET PO SCH (10:30)
[2021-01-30] MEDS: OLANZapine 10 MG TABLET PO SCH ×2 (10:30→20:10)
[2021-01-30] MEDS: DIVALPROEX SODIUM 500 MG ER TABLET PO SCH ×2 (10:30→20:09)
[2021-01-30] MEDS: MULTIVITAMINS WITH MINERALS, THERAPEUTIC TABLET PO SCH (10:30)
[2021-01-30 16:58] VITALS: BP 110/63
[2021-01-30] MEDS: IBUPROFEN 400 MG TABLET PO PRN (19:26)
[2021-01-30] MEDS: TraZODone HCL 50 MG TABLET PO SCH (20:09)
[2021-01-31 08:32] VITALS: BP 120/52
[2021-01-31] MEDS: AmLODIPine BESYLATE 5 MG TABLET PO SCH (09:12)
[2021-01-31] MEDS: OMEPRAZOLE 20 MG CAPSULE PO SCH (09:12)
[2021-01-31] MEDS: DIVALPROEX SODIUM 500 MG ER TABLET PO SCH ×2 (09:13→20:30)
[2021-01-31] MEDS: MULTIVITAMINS WITH MINERALS, THERAPEUTIC TABLET PO SCH (09:13)
[2021-01-31] MEDS: OLANZapine 10 MG TABLET PO SCH ×2 (09:13→20:30)
[2021-01-31] MEDS: OMEGA-3/DHA/EPA/FISH OIL 1,000 MG CAPSULE PO SCH (09:13)
[2021-01-31 16:15] VITALS: BP 128/63
[2021-01-31] MEDS: IBUPROFEN 400 MG TABLET PO PRN (17:00)
[2021-01-31] MEDS: TraZODone HCL 50 MG TABLET PO SCH (20:30)
[2021-02-01] MEDS: MULTIVITAMINS WITH MINERALS, THERAPEUTIC TABLET PO SCH (08:25)
[2021-02-01] MEDS: DIVALPROEX SODIUM 500 MG ER TABLET PO SCH ×2 (08:25→20:20)
[2021-02-01] MEDS: OLANZapine 10 MG TABLET PO SCH ×2 (08:25→20:20)
[2021-02-01] MEDS: OMEGA-3/DHA/EPA/FISH OIL 1,000 MG CAPSULE PO SCH (08:25)
[2021-02-01] MEDS: OMEPRAZOLE 20 MG CAPSULE PO SCH (08:26)
[2021-02-01] MEDS: AmLODIPine BESYLATE 5 MG TABLET PO SCH (08:26)
[2021-02-01 09:00] VITALS: BP 120/72
[2021-02-01 17:00] VITALS: BP 104/80
[2021-02-01] MEDS: TraZODone HCL 50 MG TABLET PO SCH (20:20)
[2021-02-02] MEDS: AmLODIPine BESYLATE 5 MG TABLET PO SCH (08:17)
[2021-02-02] MEDS: MULTIVITAMINS WITH MINERALS, THERAPEUTIC TABLET PO SCH (08:17)
[2021-02-02] MEDS: OLANZapine 10 MG TABLET PO SCH ×2 (08:17→20:09)
[2021-02-02] MEDS: DIVALPROEX SODIUM 500 MG ER TABLET PO SCH ×2 (08:17→20:09)
[2021-02-02] MEDS: OMEGA-3/DHA/EPA/FISH OIL 1,000 MG CAPSULE PO SCH (08:17)
[2021-02-02] MEDS: OMEPRAZOLE 20 MG CAPSULE PO SCH (08:17)
[2021-02-02 08:20] VITALS: BP 116/70
[2021-02-02 19:00] VITALS: BP 115/65
[2021-02-02] MEDS: TraZODone HCL 50 MG TABLET PO SCH (20:09)
[2021-02-03] MEDS: AmLODIPine BESYLATE 5 MG TABLET PO SCH (08:11)
[2021-02-03] MEDS: OLANZapine 10 MG TABLET PO SCH ×2 (08:11→20:34)
[2021-02-03] MEDS: OMEPRAZOLE 20 MG CAPSULE PO SCH (08:12)
[2021-02-03] MEDS: DIVALPROEX SODIUM 500 MG ER TABLET PO SCH ×2 (08:12→20:34)
[2021-02-03] MEDS: OMEGA-3/DHA/EPA/FISH OIL 1,000 MG CAPSULE PO SCH (08:12)
[2021-02-03] MEDS: MULTIVITAMINS WITH MINERALS, THERAPEUTIC TABLET PO SCH (08:12)
[2021-02-03 08:32] VITALS: BP 144/98
[2021-02-03 12:20] VITALS: BP 128/84
[2021-02-03] MEDS: IBUPROFEN 400 MG TABLET PO PRN (12:20)
[2021-02-03 16:22] VITALS: BP 133/102
[2021-02-03] MEDS: TraZODone HCL 50 MG TABLET PO SCH (20:34)
[2021-02-04] MEDS: MULTIVITAMINS WITH MINERALS, THERAPEUTIC TABLET PO SCH (08:40)
[2021-02-04] MEDS: OMEGA-3/DHA/EPA/FISH OIL 1,000 MG CAPSULE PO SCH (08:41)
[2021-02-04] MEDS: OLANZapine 10 MG TABLET PO SCH ×2 (08:41→21:14)
[2021-02-04] MEDS: DIVALPROEX SODIUM 500 MG ER TABLET PO SCH ×2 (08:42→21:14)
[2021-02-04] MEDS: AmLODIPine BESYLATE 5 MG TABLET PO SCH (08:42)
[2021-02-04] MEDS: OMEPRAZOLE 20 MG CAPSULE PO SCH (08:42)
[2021-02-04 09:43] VITALS: BP 122/76
[2021-02-04] MEDS: IBUPROFEN 400 MG TABLET PO PRN (16:17)
[2021-02-04 16:28] VITALS: BP 127/76
[2021-02-04] MEDS: TraZODone HCL 50 MG TABLET PO SCH (21:14)
[2021-02-05] MEDS: OLANZapine 10 MG TABLET PO SCH ×2 (08:48→20:32)
[2021-02-05] MEDS: AmLODIPine BESYLATE 5 MG TABLET PO SCH (08:48)
[2021-02-05] MEDS: IBUPROFEN 400 MG TABLET PO PRN (08:48)
[2021-02-05] MEDS: OMEGA-3/DHA/EPA/FISH OIL 1,000 MG CAPSULE PO SCH (08:48)
[2021-02-05] MEDS: MULTIVITAMINS WITH MINERALS, THERAPEUTIC TABLET PO SCH (08:48)
[2021-02-05] MEDS: OMEPRAZOLE 20 MG CAPSULE PO SCH (08:48)
[2021-02-05] MEDS: DIVALPROEX SODIUM 500 MG ER TABLET PO SCH ×2 (08:49→20:32)
[2021-02-05 08:50] VITALS: BP 121/73
[2021-02-05 16:00] VITALS: BP 148/88
[2021-02-05] MEDS: TraZODone HCL 50 MG TABLET PO SCH (20:32)
[2021-02-06 00:17] VITALS: BP 138/85
[2021-02-06 05:59] VITALS: BP 121/86
[2021-02-06] MEDS: OMEPRAZOLE 20 MG CAPSULE PO SCH (08:19)
[2021-02-06] MEDS: DIVALPROEX SODIUM 500 MG ER TABLET PO SCH ×2 (08:20→20:12)
[2021-02-06] MEDS: OLANZapine 10 MG TABLET PO SCH ×2 (08:21→20:13)
[2021-02-06] MEDS: OMEGA-3/DHA/EPA/FISH OIL 1,000 MG CAPSULE PO SCH (08:21)
[2021-02-06] MEDS: MULTIVITAMINS WITH MINERALS, THERAPEUTIC TABLET PO SCH (08:21)
[2021-02-06] MEDS: AmLODIPine BESYLATE 5 MG TABLET PO SCH (08:21)
[2021-02-06 08:25] VITALS: BP 144/96
[2021-02-06 12:45] LABS: COVID AG,FIA SOURCE NASOPHARYNGEAL
[2021-02-06 16:00] VITALS: BP 141/91
[2021-02-06] MEDS: TraZODone HCL 50 MG TABLET PO SCH (20:13)
[2021-02-07 08:24] VITALS: BP 117/75
[2021-02-07] MEDS: OLANZapine 10 MG TABLET PO SCH ×2 (08:34→20:15)
[2021-02-07] MEDS: OMEGA-3/DHA/EPA/FISH OIL 1,000 MG CAPSULE PO SCH (08:34)
[2021-02-07] MEDS: MULTIVITAMINS WITH MINERALS, THERAPEUTIC TABLET PO SCH (08:34)
[2021-02-07] MEDS: OMEPRAZOLE 20 MG CAPSULE PO SCH (08:34)
[2021-02-07] MEDS: DIVALPROEX SODIUM 500 MG ER TABLET PO SCH ×2 (08:34→20:15)
[2021-02-07] MEDS: AmLODIPine BESYLATE 5 MG TABLET PO SCH (08:35)
[2021-02-07] MEDS: IBUPROFEN 400 MG TABLET PO PRN (16:47)
[2021-02-07 18:04] VITALS: BP 145/74
[2021-02-07] MEDS: TraZODone HCL 50 MG TABLET PO SCH (20:15)
[2021-02-08 08:05] VITALS: BP 115/74
[2021-02-08] MEDS: OMEPRAZOLE 20 MG CAPSULE PO SCH (08:35)
[2021-02-08] MEDS: OMEGA-3/DHA/EPA/FISH OIL 1,000 MG CAPSULE PO SCH (08:35)
[2021-02-08] MEDS: OLANZapine 10 MG TABLET PO SCH ×2 (08:35→20:48)
[2021-02-08] MEDS: DIVALPROEX SODIUM 500 MG ER TABLET PO SCH ×2 (08:35→20:48)
[2021-02-08] MEDS: MULTIVITAMINS WITH MINERALS, THERAPEUTIC TABLET PO SCH (08:35)
[2021-02-08] MEDS: AmLODIPine BESYLATE 5 MG TABLET PO SCH (08:36)
[2021-02-08 16:00] VITALS: BP 140/93
[2021-02-08] MEDS ORDERED: LORazepam 2 MG/ML VIAL ONE (16:35)
[2021-02-08] MEDS ORDERED: DiphenhydrAMINE HCL 50 MG/ML VIAL ONE (16:36)
[2021-02-08] MEDS ORDERED: HALOPERIDOL LACTATE 5 MG/ML VIAL ONE (16:36)
[2021-02-08] MEDS ORDERED: HALOPERIDOL LACTATE 5 MG/ML VIAL IM ONE (16:45)
[2021-02-08] MEDS ORDERED: DiphenhydrAMINE HCL 50 MG/ML VIAL IM ONE (16:45)
[2021-02-08] MEDS ORDERED: LORazepam 2 MG/ML VIAL IM ONE (16:45)
[2021-02-08] MEDS: TraZODone HCL 50 MG TABLET PO SCH (20:47)
[2021-02-09 08:30] VITALS: BP 114/78
[2021-02-09] MEDS: OLANZapine 10 MG TABLET PO SCH ×2 (08:48→20:20)
[2021-02-09] MEDS: MULTIVITAMINS WITH MINERALS, THERAPEUTIC TABLET PO SCH (08:49)
[2021-02-09] MEDS: OMEPRAZOLE 20 MG CAPSULE PO SCH (08:49)
[2021-02-09] MEDS: OMEGA-3/DHA/EPA/FISH OIL 1,000 MG CAPSULE PO SCH (08:49)
[2021-02-09] MEDS: DIVALPROEX SODIUM 500 MG ER TABLET PO SCH ×2 (08:49→20:20)
[2021-02-09] MEDS: AmLODIPine BESYLATE 5 MG TABLET PO SCH (08:49)
[2021-02-09] MEDS: IBUPROFEN 400 MG TABLET PO PRN (15:52)
[2021-02-09 16:00] VITALS: BP 143/88
[2021-02-09] MEDS: TraZODone HCL 50 MG TABLET PO SCH (20:20)
[2021-02-10] MEDS: IBUPROFEN 400 MG TABLET PO PRN ×2 (08:39→17:20)
[2021-02-10] MEDS: MULTIVITAMINS WITH MINERALS, THERAPEUTIC TABLET PO SCH (08:41)
[2021-02-10] MEDS: OMEPRAZOLE 20 MG CAPSULE PO SCH (08:41)
[2021-02-10] MEDS: OMEGA-3/DHA/EPA/FISH OIL 1,000 MG CAPSULE PO SCH (08:41)
[2021-02-10] MEDS: AmLODIPine BESYLATE 5 MG TABLET PO SCH (08:41)
[2021-02-10] MEDS: OLANZapine 10 MG TABLET PO SCH ×2 (08:41→20:25)
[2021-02-10] MEDS: DIVALPROEX SODIUM 500 MG ER TABLET PO SCH ×2 (08:41→20:24)
[2021-02-10 08:48] VITALS: BP 150/84
[2021-02-10 17:08] VITALS: BP 128/90
[2021-02-10] MEDS: NICOTINE POLACRILEX 2 MG LOZENGE PO PRN (17:50)
[2021-02-10] MEDS: TraZODone HCL 50 MG TABLET PO SCH (20:24)
[2021-02-11 09:00] VITALS: BP 117/56
[2021-02-11] MEDS: DIVALPROEX SODIUM 500 MG ER TABLET PO SCH ×2 (09:06→20:12)
[2021-02-11] MEDS: OMEPRAZOLE 20 MG CAPSULE PO SCH (09:06)
[2021-02-11] MEDS: AmLODIPine BESYLATE 5 MG TABLET PO SCH (09:06)
[2021-02-11] MEDS: OMEGA-3/DHA/EPA/FISH OIL 1,000 MG CAPSULE PO SCH (09:06)
[2021-02-11] MEDS: IBUPROFEN 400 MG TABLET PO PRN (09:06)
[2021-02-11] MEDS: MULTIVITAMINS WITH MINERALS, THERAPEUTIC TABLET PO SCH (09:06)
[2021-02-11] MEDS: OLANZapine 10 MG TABLET PO SCH ×2 (09:07→20:12)
[2021-02-11 10:12] VITALS: BP 117/46
[2021-02-11 16:00] VITALS: BP 145/87
[2021-02-11] MEDS: TraZODone HCL 50 MG TABLET PO SCH (20:12)
[2021-02-12 08:00] VITALS: BP 107/85
[2021-02-12] MEDS: MULTIVITAMINS WITH MINERALS, THERAPEUTIC TABLET PO SCH (10:33)
[2021-02-12] MEDS: OMEGA-3/DHA/EPA/FISH OIL 1,000 MG CAPSULE PO SCH (10:33)
[2021-02-12] MEDS: OLANZapine 10 MG TABLET PO SCH ×2 (10:33→20:18)
[2021-02-12] MEDS: AmLODIPine BESYLATE 5 MG TABLET PO SCH (10:34)
[2021-02-12] MEDS: DIVALPROEX SODIUM 500 MG ER TABLET PO SCH ×2 (10:34→20:18)
[2021-02-12] MEDS: OMEPRAZOLE 20 MG CAPSULE PO SCH (10:34)
[2021-02-12 17:05] VITALS: BP 147/90
[2021-02-12] MEDS: TraZODone HCL 50 MG TABLET PO SCH (20:18)
[2021-02-13] MEDS: DIVALPROEX SODIUM 500 MG ER TABLET PO SCH ×2 (08:40→20:14)
[2021-02-13] MEDS: OMEGA-3/DHA/EPA/FISH OIL 1,000 MG CAPSULE PO SCH (08:40)
[2021-02-13] MEDS: AmLODIPine BESYLATE 5 MG TABLET PO SCH (08:40)
[2021-02-13] MEDS: OMEPRAZOLE 20 MG CAPSULE PO SCH (08:41)
[2021-02-13] MEDS: MULTIVITAMINS WITH MINERALS, THERAPEUTIC TABLET PO SCH (08:41)
[2021-02-13] MEDS: OLANZapine 10 MG TABLET PO SCH ×2 (08:41→20:13)
[2021-02-13 09:18] VITALS: BP 150/88
[2021-02-13 16:04] VITALS: BP 131/83
[2021-02-13 16:17] LABS: COVID AG,FIA SOURCE NASAL SWAB
[2021-02-13] MEDS: TraZODone HCL 50 MG TABLET PO SCH (20:14)
[2021-02-14] MEDS: AmLODIPine BESYLATE 5 MG TABLET PO SCH (08:31)
[2021-02-14] MEDS: OMEPRAZOLE 20 MG CAPSULE PO SCH (08:31)
[2021-02-14] MEDS: DIVALPROEX SODIUM 500 MG ER TABLET PO SCH ×2 (08:31→20:15)
[2021-02-14] MEDS: OMEGA-3/DHA/EPA/FISH OIL 1,000 MG CAPSULE PO SCH (08:31)
[2021-02-14] MEDS: OLANZapine 10 MG TABLET PO SCH ×2 (08:32→20:15)
[2021-02-14] MEDS: MULTIVITAMINS WITH MINERALS, THERAPEUTIC TABLET PO SCH (09:49)
[2021-02-14 10:54] VITALS: BP 146/97
[2021-02-14 16:11] VITALS: BP 139/86
[2021-02-14] MEDS: TraZODone HCL 50 MG TABLET PO SCH (20:15)
[2021-02-15] MEDS: OMEGA-3/DHA/EPA/FISH OIL 1,000 MG CAPSULE PO SCH (08:40)
[2021-02-15] MEDS: OMEPRAZOLE 20 MG CAPSULE PO SCH (08:40)
[2021-02-15] MEDS: MULTIVITAMINS WITH MINERALS, THERAPEUTIC TABLET PO SCH (08:40)
[2021-02-15] MEDS: DIVALPROEX SODIUM 500 MG ER TABLET PO SCH ×2 (08:40→20:13)
[2021-02-15] MEDS: AmLODIPine BESYLATE 5 MG TABLET PO SCH (08:41)
[2021-02-15] MEDS: OLANZapine 10 MG TABLET PO SCH ×2 (08:41→20:13)
[2021-02-15 16:00] VITALS: BP 137/89
[2021-02-15] MEDS: TraZODone HCL 50 MG TABLET PO SCH (20:13)
[2021-02-15] MEDS: NICOTINE POLACRILEX 2 MG LOZENGE PO PRN (21:54)
[2021-02-16 08:00] VITALS: BP 137/75
[2021-02-16] MEDS: OLANZapine 10 MG TABLET PO SCH ×2 (10:51→20:03)
[2021-02-16] MEDS: DIVALPROEX SODIUM 500 MG ER TABLET PO SCH ×2 (10:51→20:03)
[2021-02-16] MEDS: OMEGA-3/DHA/EPA/FISH OIL 1,000 MG CAPSULE PO SCH (10:52)
[2021-02-16] MEDS: AmLODIPine BESYLATE 5 MG TABLET PO SCH (10:52)
[2021-02-16] MEDS: OMEPRAZOLE 20 MG CAPSULE PO SCH (10:52)
[2021-02-16] MEDS: MULTIVITAMINS WITH MINERALS, THERAPEUTIC TABLET PO SCH (10:52)
[2021-02-16 16:00] VITALS: BP 139/83
[2021-02-16] MEDS: TraZODone HCL 50 MG TABLET PO SCH (20:03)
[2021-02-17 09:30] VITALS: BP 119/80
[2021-02-17] MEDS: MULTIVITAMINS WITH MINERALS, THERAPEUTIC TABLET PO SCH (10:18)
[2021-02-17] MEDS: AmLODIPine BESYLATE 5 MG TABLET PO SCH (10:18)
[2021-02-17] MEDS: OLANZapine 10 MG TABLET PO SCH ×2 (10:19→20:21)
[2021-02-17] MEDS: DIVALPROEX SODIUM 500 MG ER TABLET PO SCH ×2 (10:19→20:22)
[2021-02-17] MEDS: OMEGA-3/DHA/EPA/FISH OIL 1,000 MG CAPSULE PO SCH (10:19)
[2021-02-17] MEDS: OMEPRAZOLE 20 MG CAPSULE PO SCH (10:20)
[2021-02-17 16:51] VITALS: BP 120/67
[2021-02-17] MEDS: TraZODone HCL 50 MG TABLET PO SCH (20:21)
[2021-02-18 08:01] VITALS: BP 126/87
[2021-02-18] MEDS: OMEPRAZOLE 20 MG CAPSULE PO SCH (08:23)
[2021-02-18] MEDS: DIVALPROEX SODIUM 500 MG ER TABLET PO SCH ×2 (08:23→20:13)
[2021-02-18] MEDS: AmLODIPine BESYLATE 5 MG TABLET PO SCH (08:23)
[2021-02-18] MEDS: OMEGA-3/DHA/EPA/FISH OIL 1,000 MG CAPSULE PO SCH (08:23)
[2021-02-18] MEDS: OLANZapine 10 MG TABLET PO SCH ×2 (08:23→20:13)
[2021-02-18] MEDS: MULTIVITAMINS WITH MINERALS, THERAPEUTIC TABLET PO SCH (08:23)
[2021-02-18 16:00] VITALS: BP 134/89
[2021-02-18] MEDS: TraZODone HCL 50 MG TABLET PO SCH (20:13)
[2021-02-19 08:05] VITALS: BP 134/80
[2021-02-19] MEDS: OLANZapine 10 MG TABLET PO SCH ×2 (10:25→20:13)
[2021-02-19] MEDS: AmLODIPine BESYLATE 5 MG TABLET PO SCH (10:25)
[2021-02-19] MEDS: DIVALPROEX SODIUM 500 MG ER TABLET PO SCH ×2 (10:25→20:13)
[2021-02-19] MEDS: OMEGA-3/DHA/EPA/FISH OIL 1,000 MG CAPSULE PO SCH (10:25)
[2021-02-19] MEDS: MULTIVITAMINS WITH MINERALS, THERAPEUTIC TABLET PO SCH (10:25)
[2021-02-19] MEDS: OMEPRAZOLE 20 MG CAPSULE PO SCH (10:26)
[2021-02-19 16:00] VITALS: BP 129/87
[2021-02-19] MEDS: TraZODone HCL 50 MG TABLET PO SCH (20:13)
[2021-02-20 01:00] VITALS: BP 122/74
[2021-02-20 08:41] VITALS: BP 110/86
[2021-02-20] MEDS: MULTIVITAMINS WITH MINERALS, THERAPEUTIC TABLET PO SCH (11:13)
[2021-02-20] MEDS: OMEPRAZOLE 20 MG CAPSULE PO SCH (11:13)
[2021-02-20] MEDS: DIVALPROEX SODIUM 500 MG ER TABLET PO SCH ×2 (11:14→20:17)
[2021-02-20] MEDS: OLANZapine 10 MG TABLET PO SCH ×2 (11:14→20:17)
[2021-02-20] MEDS: OMEGA-3/DHA/EPA/FISH OIL 1,000 MG CAPSULE PO SCH (11:15)
[2021-02-20] MEDS: AmLODIPine BESYLATE 5 MG TABLET PO SCH (11:16)
[2021-02-20 12:49] LABS: COVID AG,FIA SOURCE NASOPHARYNGEAL
[2021-02-20 16:46] VITALS: BP 116/74
[2021-02-20] MEDS: TraZODone HCL 50 MG TABLET PO SCH (20:17)
[2021-02-21] MEDS: OLANZapine 10 MG TABLET PO SCH ×2 (08:18→20:10)
[2021-02-21] MEDS: MULTIVITAMINS WITH MINERALS, THERAPEUTIC TABLET PO SCH (08:18)
[2021-02-21] MEDS: AmLODIPine BESYLATE 5 MG TABLET PO SCH (08:19)
[2021-02-21] MEDS: OMEPRAZOLE 20 MG CAPSULE PO SCH (08:19)
[2021-02-21 08:20] VITALS: BP 103/57
[2021-02-21] MEDS: OMEGA-3/DHA/EPA/FISH OIL 1,000 MG CAPSULE PO SCH (08:20)
[2021-02-21] MEDS: DIVALPROEX SODIUM 500 MG ER TABLET PO SCH ×2 (08:20→20:11)
[2021-02-21 16:00] VITALS: BP 157/84
[2021-02-21] MEDS: TraZODone HCL 50 MG TABLET PO SCH (20:11)
[2021-02-22 08:00] VITALS: BP 159/97
[2021-02-22] MEDS: DIVALPROEX SODIUM 500 MG ER TABLET PO SCH ×2 (08:24→20:16)
[2021-02-22] MEDS: OMEPRAZOLE 20 MG CAPSULE PO SCH (08:24)
[2021-02-22] MEDS: OLANZapine 10 MG TABLET PO SCH ×2 (08:24→20:16)
[2021-02-22] MEDS: OMEGA-3/DHA/EPA/FISH OIL 1,000 MG CAPSULE PO SCH (08:25)
[2021-02-22] MEDS: MULTIVITAMINS WITH MINERALS, THERAPEUTIC TABLET PO SCH (08:25)
[2021-02-22] MEDS: AmLODIPine BESYLATE 5 MG TABLET PO SCH (08:25)
[2021-02-22 16:25] VITALS: BP 138/98
[2021-02-22] MEDS: TraZODone HCL 50 MG TABLET PO SCH (20:16)
[2021-02-23 03:07] VITALS: BP 129/92
[2021-02-23 08:00] VITALS: BP 133/61
[2021-02-23] MEDS: OLANZapine 10 MG TABLET PO SCH ×2 (08:28→21:05)
[2021-02-23] MEDS: OMEPRAZOLE 20 MG CAPSULE PO SCH (08:28)
[2021-02-23] MEDS: DIVALPROEX SODIUM 500 MG ER TABLET PO SCH ×2 (08:28→21:05)
[2021-02-23] MEDS: OMEGA-3/DHA/EPA/FISH OIL 1,000 MG CAPSULE PO SCH (08:28)
[2021-02-23] MEDS: MULTIVITAMINS WITH MINERALS, THERAPEUTIC TABLET PO SCH (08:28)
[2021-02-23] MEDS: AmLODIPine BESYLATE 5 MG TABLET PO SCH (08:28)
[2021-02-23 16:00] VITALS: BP 124/83
[2021-02-23] MEDS: TraZODone HCL 50 MG TABLET PO SCH (21:05)
[2021-02-24 00:17] VITALS: BP 114/78
[2021-02-24] MEDS: IBUPROFEN 400 MG TABLET PO PRN ×2 (00:20→22:42)
[2021-02-24 08:00] VITALS: BP 111/65
[2021-02-24] MEDS: MULTIVITAMINS WITH MINERALS, THERAPEUTIC TABLET PO SCH (09:12)
[2021-02-24] MEDS: OMEGA-3/DHA/EPA/FISH OIL 1,000 MG CAPSULE PO SCH (09:12)
[2021-02-24] MEDS: DIVALPROEX SODIUM 500 MG ER TABLET PO SCH ×2 (09:12→20:42)
[2021-02-24] MEDS: OMEPRAZOLE 20 MG CAPSULE PO SCH (09:12)
[2021-02-24] MEDS: OLANZapine 10 MG TABLET PO SCH ×2 (09:12→20:42)
[2021-02-24] MEDS: AmLODIPine BESYLATE 5 MG TABLET PO SCH (09:12)
[2021-02-24 16:04] VITALS: BP 143/95
[2021-02-24] MEDS: TraZODone HCL 50 MG TABLET PO SCH (20:42)
[2021-02-24 22:43] VITALS: BP 147/84
[2021-02-25 01:49] VITALS: BP 143/82
[2021-02-25] MEDS: DIVALPROEX SODIUM 500 MG ER TABLET PO SCH ×2 (08:49→21:14)
[2021-02-25] MEDS: OMEGA-3/DHA/EPA/FISH OIL 1,000 MG CAPSULE PO SCH (08:49)
[2021-02-25] MEDS: OLANZapine 10 MG TABLET PO SCH ×2 (08:49→21:14)
[2021-02-25] MEDS: MULTIVITAMINS WITH MINERALS, THERAPEUTIC TABLET PO SCH (08:49)
[2021-02-25] MEDS: OMEPRAZOLE 20 MG CAPSULE PO SCH (08:50)
[2021-02-25] MEDS: AmLODIPine BESYLATE 5 MG TABLET PO SCH (08:50)
[2021-02-25 09:00] VITALS: BP 106/74
[2021-02-25 16:00] VITALS: BP 131/83
[2021-02-25 16:32] VITALS: BP 131/83
[2021-02-25] MEDS: TraZODone HCL 50 MG TABLET PO SCH (21:14)
[2021-02-26 08:06] VITALS: BP 117/71
[2021-02-26] MEDS: AmLODIPine BESYLATE 5 MG TABLET PO SCH (08:56)
[2021-02-26] MEDS: DIVALPROEX SODIUM 500 MG ER TABLET PO SCH ×2 (08:56→20:31)
[2021-02-26] MEDS: MULTIVITAMINS WITH MINERALS, THERAPEUTIC TABLET PO SCH (08:56)
[2021-02-26] MEDS: OMEGA-3/DHA/EPA/FISH OIL 1,000 MG CAPSULE PO SCH (08:56)
[2021-02-26] MEDS: OMEPRAZOLE 20 MG CAPSULE PO SCH (08:56)
[2021-02-26] MEDS: OLANZapine 10 MG TABLET PO SCH ×2 (08:56→20:31)
[2021-02-26] MEDS ORDERED: TUBERCULIN, PURIFIED PROTEIN DERIVATIVE 5 TU/0.1 ML SYRINGE ID ONE (12:15)
[2021-02-26 16:28] VITALS: BP 129/85
[2021-02-26] MEDS: TraZODone HCL 50 MG TABLET PO SCH (20:31)
[2021-02-27] MEDS: OLANZapine 10 MG TABLET PO SCH ×2 (08:03→20:28)
[2021-02-27] MEDS: AmLODIPine BESYLATE 5 MG TABLET PO SCH (08:03)
[2021-02-27] MEDS: MULTIVITAMINS WITH MINERALS, THERAPEUTIC TABLET PO SCH (08:03)
[2021-02-27] MEDS: OMEPRAZOLE 20 MG CAPSULE PO SCH (08:03)
[2021-02-27] MEDS: OMEGA-3/DHA/EPA/FISH OIL 1,000 MG CAPSULE PO SCH (08:03)
[2021-02-27] MEDS: DIVALPROEX SODIUM 500 MG ER TABLET PO SCH ×2 (08:03→20:28)
[2021-02-27 08:24] VITALS: BP 140/92
[2021-02-27 14:58] LABS: COVID AG,FIA SOURCE NASOPHARYNGEAL
[2021-02-27 16:27] VITALS: BP 130/72
[2021-02-27] MEDS: TraZODone HCL 50 MG TABLET PO SCH (20:28)
[2021-02-28] MEDS: OMEPRAZOLE 20 MG CAPSULE PO SCH (08:29)
[2021-02-28] MEDS: MULTIVITAMINS WITH MINERALS, THERAPEUTIC TABLET PO SCH (08:29)
[2021-02-28] MEDS: DIVALPROEX SODIUM 500 MG ER TABLET PO SCH ×2 (08:29→20:18)
[2021-02-28] MEDS: AmLODIPine BESYLATE 5 MG TABLET PO SCH (08:30)
[2021-02-28] MEDS: OMEGA-3/DHA/EPA/FISH OIL 1,000 MG CAPSULE PO SCH (08:30)
[2021-02-28] MEDS: OLANZapine 10 MG TABLET PO SCH ×2 (08:30→20:18)
[2021-02-28 09:17] VITALS: BP 120/74
[2021-02-28 16:18] VITALS: BP 146/79
[2021-02-28] MEDS: TraZODone HCL 50 MG TABLET PO SCH (20:18)
[2021-03-01 08:47] VITALS: BP 110/72
[2021-03-01] MEDS: OLANZapine 10 MG TABLET PO SCH ×2 (08:50→20:23)
[2021-03-01] MEDS: AmLODIPine BESYLATE 5 MG TABLET PO SCH (08:51)
[2021-03-01] MEDS: OMEPRAZOLE 20 MG CAPSULE PO SCH (08:51)
[2021-03-01] MEDS: DIVALPROEX SODIUM 500 MG ER TABLET PO SCH ×2 (08:51→20:24)
[2021-03-01] MEDS: OMEGA-3/DHA/EPA/FISH OIL 1,000 MG CAPSULE PO SCH (08:51)
[2021-03-01] MEDS: MULTIVITAMINS WITH MINERALS, THERAPEUTIC TABLET PO SCH (08:51)
[2021-03-01 16:00] VITALS: BP 107/93
[2021-03-01] MEDS: IBUPROFEN 400 MG TABLET PO PRN (18:39)
[2021-03-01 20:11] LABS: COVID AG,FIA SOURCE NASOPHARYNGEAL
[2021-03-01] MEDS: TraZODone HCL 50 MG TABLET PO SCH (20:23)
[2021-03-02] MEDS: OMEGA-3/DHA/EPA/FISH OIL 1,000 MG CAPSULE PO SCH (08:34)
[2021-03-02] MEDS: DIVALPROEX SODIUM 500 MG ER TABLET PO SCH ×2 (08:34→20:35)
[2021-03-02] MEDS: AmLODIPine BESYLATE 5 MG TABLET PO SCH (08:34)
[2021-03-02] MEDS: OLANZapine 10 MG TABLET PO SCH ×2 (08:34→20:36)
[2021-03-02] MEDS: MULTIVITAMINS WITH MINERALS, THERAPEUTIC TABLET PO SCH (08:34)
[2021-03-02] MEDS: OMEPRAZOLE 20 MG CAPSULE PO SCH (08:34)
[2021-03-02 08:45] VITALS: BP 137/84
[2021-03-02 12:28] LABS: BASOPHILS % (AUTO) 0.7 % (0.0-2.0); EOSINOPHILS % (AUTO) 1.3 % (1.0-6.0); HEMATOCRIT 45.9 % (41-53); HEMOGLOBIN 15.7 g/dL (13.5-17.5); LYMPHOCYTES # (AUTO) 1.9 K/uL (1.0-4.8); LYMPHOCYTES % (AUTO) 29.2 % (22.0-44.0); MEAN CORPUSCULAR HEMOGLOBIN 29.4 pg (26.0-34.0); MEAN CORPUSCULAR HGB CONC 34.3 G/dL (31.0-37.0); MEAN CORPUSCULAR VOLUME 86 fL (80-100); MONOCYTES # (AUTO) 0.5 K/uL (0.1-1.0); MONOCYTES % (AUTO) 7.8 % (2.0-9.0); PLATELET COUNT (AUTO) 187 K/uL (150-450); RED BLOOD CELL COUNT(AUTO) 5.35 MIL/uL (4.50-5.90); RED CELL DISTRIBUTION WIDTH 13.7 % (11.5-14.5)
[2021-03-02 12:36] LABS: ANION GAP 10 mmol/L (8-16); CARBON DIOXIDE 26 mmol/L (22-29); CHLORIDE 105 mmol/L (98-107); CREATININE 0.85 mg/dL (0.60-1.30); GLOMERULAR FILTR. RATE CALC > 60 mL/min (>60); GLUCOSE,RANDOM 146 mg/dL (70-110); POTASSIUM 4.6 mmol/L (3.5-5.1); SODIUM SERUM 141 mmol/L (136-145); UREA NITROGEN, BLOOD 17 mg/dL (7-18)
[2021-03-02 13:02] LABS: VALPROIC ACID 77 mcg/mL (50-100)
[2021-03-02 16:25] VITALS: BP 133/89
[2021-03-02] MEDS: TraZODone HCL 50 MG TABLET PO SCH (22:28)
[2021-03-03 08:49] VITALS: BP 105/75
[2021-03-03] MEDS ORDERED: MULT-1239 PO (09:12)
[2021-03-03] MEDS ORDERED: OMEG-135 PO (09:17)
[2021-03-03] MEDS ORDERED: TRAZ-252 PO (09:17)
[2021-03-03] MEDS: OMEGA-3/DHA/EPA/FISH OIL 1,000 MG CAPSULE PO SCH (09:23)
[2021-03-03] MEDS: MULTIVITAMINS WITH MINERALS, THERAPEUTIC TABLET PO SCH (09:23)
[2021-03-03] MEDS: OLANZapine 10 MG TABLET PO SCH (09:23)
[2021-03-03] MEDS: DIVALPROEX SODIUM 500 MG ER TABLET PO SCH (09:23)
[2021-03-03] MEDS: AmLODIPine BESYLATE 5 MG TABLET PO SCH (09:24)
[2021-03-03] MEDS: OMEPRAZOLE 20 MG CAPSULE PO SCH (09:25)
== END 2021-03-03 12:25 | DRG 750 ==
LOC: B2S 21:58 → 3EI 01-23 14:09 → B2S 01-23 14:09 → B3A 01-23 17:50 → 3EI 01-23 21:00
PROVIDERS: ADMIT Psychiatry & Neurology Psychiatry; ATTEND Psychiatry & Neurology Psychiatry
DX: F20.0 Paranoid schizophrenia (principal); E78.5 Hyperlipidemia, unspecified; I10 Essential (primary) hypertension; K21.9 Gastro-esophageal reflux disease without esophagitis; F17.200 Nicotine dependence, unspecified, uncomplicated; F10.10 Alcohol abuse, uncomplicated; Z20.822 Contact with and (suspected) exposure to COVID-19; Y90.9 Presence of alcohol in blood, level not specified; F19.10 Other psychoactive substance abuse, uncomplicated; Z71.6 Tobacco abuse counseling
CPT/HCPCS: 84439; 84443; 86592; 87081; 87426; 93005; A9575; J1200; J1630; J2060